=== PATIENT | male | born 1950 | race Caucasian/White ===

== ENCOUNTER 2016-04-08 10:48 | Inpatient (IN) | payer OTHER ==
[2016-04-08] VITALS (9 sets, daily range): BP systolic 80–136; BP diastolic 52–68; PULSE 61–69; TEMP 36.1–36.4; O2SAT 91–99; Ht 180.3 cm; Wt 113.8 kg
[~2016-04-08] VITALS: Ht 180.3 cm; Wt 113.8 kg
[2016-04-08] MEDS ORDERED: SODIUM CHLORIDE 0.9% 1000ML 500 ML IV STA (10:52)
[2016-04-08] MEDS ORDERED: SODIUM CHLORIDE 0.9% 1000ML 1,000 ML IV STA ×2 (11:00→15:10)
--- NOTE | 2016-04-08 11:27 | DIAGNOSTIC IMAGING REPORT ---
CHEST ONE VIEW PORTABLE CLINICAL HISTORY: weak dyspnea COMPARISON STUDY: No previous studies for comparison. FINDINGS: Mild cardiomegaly. Lungs are clear. Diaphragms smooth. Costophrenic angles sharp. IMPRESSION: Mild cardia megaly. Otherwise negative study Electronically signed by: Sherif Burns M.D. 04/08/2016 11:25 AM Dictated Date/Time: 04/08/2016 11:25 AM
[2016-04-08 11:31] LABS: HEMATOCRIT 45.9 % (42-52); MEAN CELL VOLUME 86.3 fL (80-100); MEAN CORPUSCULAR HEMOGLOBIN 32.1 pg (25-34); MEAN CORPUSCULAR HGB CONC 37.3 g/dl (32-36); MEAN PLATELET VOLUME 10.8 fL (7.4-10.4); PLATELET COUNT 365 K/uL (130-400); RED BLOOD COUNT 5.32 M/uL (4.7-6.1); WHITE BLOOD COUNT 26.23 K/uL (4.8-10.8)
--- NOTE | 2016-04-08 11:31 | EMERGENCY ROOM VISIT NOTE ---
History Report prepared by Kris: Carolina Bentley Under the Supervision of: Dr. Forest Ramires M.D. First contact with patient: 10:51 Chief Complaint: FLU LIKE SX Stated Complaint: EXTREME FLU/DEHYDRATION 8 DAYS History of Present Illness The patient is a 65 year old male who presents to the Emergency Room with complaints of persistent generalized weakness starting about 8 days ago. The patient has had flu-like symptoms for the past few days. He also complains of a loss of appetite and dizziness. He had one vomiting episode yesterday. He currently denies any pain. He denies chest pain, abdominal pain, or any other complaints. Source of History: patient Onset: about 8 days ago Position: other (global) Symptom Intensity: No pain Quality: other (weakness) Timing: other (persistent) Associated Symptoms: + vomiting, No abdominal pain, No chest pain Review of Systems See HPI for pertinent positives & negatives. A total of 10 systems reviewed and were otherwise negative. Past Medical & Surgical Medical Problems: (1) Acute renal failure (2) Chronic kidney disease, stage III (moderate) (3) Hypertension (4) Hypokalemia (5) Metabolic acidosis (6) No Known Active Medical Problems Family History Patient reports no known family medical history. Social History Smoking Status: Former Smoker Marital Status: single Occupation Status: retired Current/Historical Medications Scheduled Lisinopril/Hctz (Zestoretic 20MG/12.5MG), 1 TAB PO BID Verapamil Hcl (Verapamil Hcl Sr), 360 MG PO DAILY Allergies Coded Allergies: No Known Allergies (Unverified , 04/08/16) Physical Exam Vital Signs Date Time Temp Pulse Resp B/P Pulse Ox O2 Delivery O2 Flow Rate FiO2 04/08/16 15:00 70 78/45 04/08/16 14:53 63 86/42 04/08/16 14:20 66 22 96/46 98 04/08/16 14:04 73 98/62 04/08/16 13:15 64 106/57 04/08/16 13:14 64 04/08/16 12:25 57 18 105/61 96 04/08/16 12:01 62 20 99/46 04/08/16 11:46 66 18 83/55 94 Room Air 04/08/16 11:21 72 89/68 72 71/54 2/10/17 11:20 71 04/08/16 11:02 36.4 04/08/16 10:50 64 20 62/54 98 Room Air 63/47 Physical Exam CONSTITUTIONAL: Mild distress HEENT: No icterus, moist mucous membranes NECK: No meningismus, trachea is midline. CARDIOVASCULAR: Regular rate, normal perfusion RESPIRATORY: Unlabored breathing. Clear to auscultation. GASTROINTESTINAL: Non-tender GENITOURINARY: No flank tenderness MUSCULOSKELETAL: Full range of motion NEUROLOGIC: No acute gross focal deficits. PSYCHIATRIC: Normal affect SKIN: Normal for ethnicity. Medical Decision & Procedures ER Provider Diagnostic Interpretation: X-ray results as stated below per interpretation by me and the radiologist. CHEST ONE VIEW PORTABLE CLINICAL HISTORY: weak dyspnea COMPARISON STUDY: No previous studies for comparison. FINDINGS: Mild cardiomegaly. Lungs are clear. Diaphragms smooth. Costophrenic angles sharp. IMPRESSION: Mild cardia megaly. Otherwise negative study Electronically signed by: Sherif Burns M.D. 04/08/2016 11:25 AM Dictated Date/Time: 04/08/2016 11:25 AM Radiology results as stated below per my review and radiologist interpretation. CT SCAN OF THE ABDOMEN AND PELVIS WITHOUT IV CONTRAST CLINICAL HISTORY: Renal failure. GI bleeding. Leukocytosis. COMPARISON STUDY: No priors. TECHNIQUE: CT scan of the abdomen and pelvis is performed from the lung bases to the proximal femora. Images are reviewed in the axial, sagittal, and coronal planes. IV contrast was not administered for this examination as per the referring clinician. Note that the examination is suboptimal without oral and IV contrast. The examination is also degraded by large body habitus, streak artifact from the body wall abutting the CT gantry, and motion. Automated dose control exposure was utilized. CT DOSE: 1440.56 mGy.cm FINDINGS: Lung bases: The heart is lower and without pericardial effusion. The lung bases are clear. There is a small to moderate hiatal hernia. Liver: The unenhanced liver is mildly enlarged measuring over 18 cm in length. The liver demonstrates diminished attenuation consistent with hepatic steatosis. There is no intrahepatic biliary ductal dilatation. Gallbladder: Contracted. Spleen: Normal in size and attenuation. Pancreas: Unremarkable. Adrenal glands: Unremarkable. Kidneys: The unenhanced kidneys are normal in size and without hydronephrosis. There are no renal calculi identified. A 1.6 cm exophytic cyst arises from the lower pole of the left kidney. A 2.5 cm hyperdense lesion is seen in the lower pole the right kidney. Abdominal vasculature: The abdominal aorta is normal in course and caliber noting mild atherosclerotic calcification. Bowel: The small bowel and colon are normal in course and caliber. There are scattered colonic diverticula without CT evidence of acute diverticulitis. Liquid stool seen throughout the colon. There is no colonic wall thickening or pericolonic inflammation. The appendix is well-visualized and normal. Peritoneum: There is no intraperitoneal free air or abdominal ascites. Lymphadenopathy: None. Pelvic viscera: The bladder is decompressed around a Chance catheter. Foci of intraluminal gas are likely related to instrumentation. The prostate and seminal vesicles are normal as visualized. Skeletal structures: No lytic or blastic lesions are seen. IMPRESSION: 1. Suboptimal examination without oral and IV contrast. The examination is also significantly degraded by streak and motion artifact. 2. Liquid stool is seen throughout the colon. There is no colonic wall thickening or pericolonic inflammation. Correlate clinically for evidence of a diarrheal illness. 3. Hepatomegaly and hepatic steatosis. 4. The bladder is decompressed around a Chance catheter. Foci of intraluminal gas are likely related to instrumentation. Correlation with clinical findings and urinalysis will be required. 5. Cardiomegaly and hiatal hernia. 6. There is a 2.5 cm hyperdense lesion seen in the lower pole of the right kidney. This likely represents a complex/hemorrhagic cyst. Correlation with a nonemergent renal ultrasound is recommended for further assessment. 7. Additional findings as above. Electronically signed by: Nick Laura M.D. 04/08/2016 4:43 PM Dictated Date/Time: 04/08/2016 4:37 PM Laboratory Results Test 04/08/16 11:15 04/08/16 11:20 Immature Granulocyte % (Auto) 3.4 % White Blood Count 26.23 K/uL (4.8-10.8) Red Blood Count 5.32 M/uL (4.7-6.1) Hemoglobin 17.1 g/dL (14.0-18.0) Hematocrit 45.9 % (42-52) Mean Corpuscular Volume 86.3 fL (80-100) Mean Corpuscular Hemoglobin 32.1 pg (25-34) Mean Corpuscular Hemoglobin Concent 37.3 g/dl (32-36) Platelet Count 365 K/uL (130-400) Mean Platelet Volume 10.8 fL (7.4-10.4) Neutrophils (%) (Auto) 82.4 % Lymphocytes (%) (Auto) 6.3 % Monocytes (%) (Auto) 7.5 % Eosinophils (%) (Auto) 0.0 % Basophils (%) (Auto) 0.4 % Neutrophils # (Auto) 21.59 K/uL (1.4-6.5) Lymphocytes # (Auto) 1.65 K/uL (1.2-3.4) Monocytes # (Auto) 1.98 K/uL (0.11-0.59) Eosinophils # (Auto) 0.01 K/uL (0-0.5) Basophils # (Auto) 0.11 K/uL (0-0.2) Immature Granulocyte # (Auto) 0.89 K/uL (0.00-0.02) Prothrombin Time 12.7 SECONDS (9.0-12.0) Prothromb Time International Ratio 1.2 (0.9-1.1) Activated Partial Thromboplast Time 33.8 SECONDS (21.0-31.0) Partial Thromboplastin Ratio 1.3 Phosphorus Level 15.3 mg/dl (2.5-4.9) Magnesium Level 3.3 mg/dl (1.8-2.4) Influenza Type A Antigen Neg for Influ A (NEG) Influenza Type B Antigen Neg for Influ B (NEG) Labs reviewed by ED physician. Medications Administered Medications (Trade) Dose Ordered Sig/Jose Route Start Time Stop Time Status Last Admin Dose Admin Sodium Chloride 500 ml @ 0 mls/hr Q0M STAT IV 04/08/16 10:52 04/08/16 10:53 DC 04/08/16 11:47 0 MLS/HR Sodium Chloride 1,000 ml @ 0 mls/hr Q0M STAT IV 04/08/16 11:00 04/08/16 11:01 DC 04/08/16 11:25 0 MLS/HR Sodium Chloride (Nss 1000ml) 1,000 ml @ 250 mls/hr Q4H IV 04/08/16 14:45 04/08/16 16:20 DC 04/08/16 14:45 125 MLS/HR Potassium Chloride (Kcl 10 Meq / Wtr) 20 meq STK-MED ONCE IV 04/08/16 14:24 04/08/16 14:26 DC 04/08/16 14:38 20 MEQ Piperacillin Sod/ Tazobactam Sod 4.5 gm 4.5 gm NOW STAT IV 04/08/16 14:23 04/08/16 14:35 DC 04/08/16 15:32 4.5 GM Pantoprazole Sodium/Syringe (Protonix Inj/ Syringe) 10 ml @ 5 mls/min ONE STAT IV 04/08/16 14:43 04/08/16 14:44 DC 04/08/16 15:32 5 MLS/MIN ECG Indication: weakness Rate (beats per minute): 72 Rhythm: sinus rhythm Findings: nonspecific-ST abn, RBBB ED Course 1051: Past medical records reviewed. The patient was evaluated in room A04B. A complete history and physical examination was performed. 1052: Sodium Chloride 500 ml @ 0 mls/hr Wide Open IV 1100: Sodium Chloride 1000 ml @ 0 mls/hr Wide Open IV 1306: I discussed the patient's case with Dr. Pierre, biomedical engineering professor with [facility]. 1312: Upon reexamination the patient is resting comfortably. I discussed results and treatment plan with the patient. He verbalizes agreement and understanding. I spoke with Dr. Babin from the [facility]. The patient will be evaluated for further management. 1332: Toradol Inj 15 mg IV Medical Decision Differential diagnosis includes but is not limited to viral syndrome, dehydration, metabolic disturbance. 65-year-old presented to the emergency department for evaluation of worsening generalized malaise and feeling unwell. Review of systems was essentially negative on a focused emergency department history. Screening labs revealed multiple abnormalities and additional testing was therefore ordered. Consultation obtained with nephrology and admission arranged. During ED stay and after admission arrangements had been made nurse reported liquid stool that was dark and heme positive. Type and cross ordered. Patient remained hemodynamically stable emergency room course. Consults Time Called: 1302 Consulting Physician: Dr. Pierre, biomedical engineering professor with [facility] Returned Call: 1306 I discussed the patient's case with Dr. Pierre biomedical engineering professor with [facility]. Additional Consults: Time Called: 1308 Consulted Physician: Dr. Babin from the [facility] Returned Call: 1312 Additional Comments: I spoke with Dr. Babin from the [facility]. Impression Primary Impression: Renal failure Additional Impression: Leukocytosis Scribe Attestation The scribe's documentation has been prepared under my direction and personally reviewed by me in its entirety. I confirm that the note above accurately reflects all work, treatment, procedures, and medical decision making performed by me. Departure Information Dispostion Being Evaluated By Hospitalist Referrals Lei De La Vega PA-C (PCP) Patient Instructions My [facility] Problem Qualifiers
[2016-04-08] MEDS ORDERED: LISI-787 PO (11:51)
[2016-04-08] MEDS ORDERED: VERA360C2 PO (11:51)
[2016-04-08 12:02] LABS: BUN/CREATININE RATIO 8.2 (10-20); CALCIUM 8.7 mg/dl (8.5-10.1); POTASSIUM 3.2 mmol/L (3.5-5.1)
[2016-04-08 12:04] LABS: BASO % 0.4 %; BASO ABS # 0.11 K/uL (0-0.2); COMPLETE YES; IG% 3.4 %; LYMPH % 6.3 %; LYMPH ABS # 1.65 K/uL (1.2-3.4); MONO % 7.5 %; NEUT % 82.4 %
[2016-04-08] MEDS ORDERED: KETOROLAC TROMETHAMINE 30 MG/ML VIAL IV STA (13:32)
[2016-04-08 13:39] LABS: MAGNESIUM 3.3 mg/dl (1.8-2.4)
[2016-04-08] MEDS ORDERED: POTASSIUM CHLR 20 MEQ / WTR 20 MEQ in PREMIXED WATER 100 ML IV STA (13:55)
[2016-04-08] MEDS ORDERED: ONDANSETRON INJ 2 MG/ML 2 ML VIAL IV PRN (14:00)
[2016-04-08] MEDS ORDERED: ACETAMINOPHEN 325 MG TAB PO PRN (14:00)
[2016-04-08] MEDS ORDERED: HEPARIN SOD 5000 UNIT/0.5 ML CARP SQ SCH (14:00)
[2016-04-08 14:09] LABS: PHOSPHORUS 15.3 mg/dl (2.5-4.9)
--- NOTE | 2016-04-08 14:21 | History and Physical ---
History & Physical Date & Time of Service: Apr 08, 2016 at 14:00 Chief Complaint: Extreme Flu/Dehydration 8 Days Primary Care Physician: Lei De La Vega PA-C History of Present Illness Source: patient, family This is a 65 yo M with PMHx HTN, tobacco abuse history, current tobacco chewer presenting after 1 week of having gastritis now with acute renal failure. Pt's two daughters, Anamaria and Briseyda are present at bedside. Pt had been seen by his PCP 1 week ago for GI flu, he was instructed to go back to the office or ER if symptoms worsened. His daughter brought him here for continued symptoms today. Since being seen by PCP he has continued to have diarrhea daily along with nausea and vomiting. Pt admits to last time vomiting was last evening. He reports orange clear liquid emesis, denies dark or coffee ground emesis, no blood streaking. He denies bowel movements have been dark or tarry. His appetitie has been very poor, and has tolerated minimal liquids. He admits to feeling weak and lightheaded for the past few days, and becomes dizzy acutely when he goes from sit to standing position. Denies fevers or chills. Pt admits his whole family had similar GI illness over a week ago. The patient has been taking medications lisinopril/hctz 20/12.5 mg and Verapamil hcl 260 mg daily. He lives alone in his own home. In the ED the pt has received 2 L NSS, Labs indicate acute renal failure with Cr.=13.0, BUN =107, AG=29, CO2=11, Rb=843, K+=3.2. WBC elevated at 26.23, Hgb= 17.1 and likely hemoconcentrated. Hemmocult positive. Renal u/s in process. While at bedside pt BP was 110/80s, but is the highest documented BP since here. Systolic has been in the 80s and 90s Family History Patient reports no known family medical history. Social History Smoking Status: Former Smoker (25 year pack history) Smokeless Tobacco Use: Yes (current user) Alcohol Use: daily 2-3 beers Drug Use: none Marital Status: single Housing status: lives alone Occupational Status: retired Immunizations History of Influenza Vaccine: No History of Tetanus Vaccine?: Yes History of Pneumococcal: No History of Hepatitis B Vaccine: Yes Allergies Coded Allergies: No Known Allergies (Unverified , 04/08/16) Home Medications Scheduled Lisinopril/Hctz (Zestoretic 20MG/12.5MG), 1 TAB PO BID Verapamil Hcl (Verapamil Hcl Sr), 360 MG PO DAILY Review of Systems 10 point ROS was reviewed and is negative other than listed in the HPI. Physical Exam Vital Signs Date Time Temp Pulse Resp B/P Pulse Ox O2 Delivery O2 Flow Rate FiO2 04/08/16 13:15 64 106/57 04/08/16 13:14 64 04/08/16 12:25 57 18 105/61 96 04/08/16 12:01 62 20 99/46 04/08/16 11:46 66 18 83/55 94 Room Air 04/08/16 11:21 72 89/68 72 71/54 04/08/16 11:20 71 04/08/16 11:02 36.4 04/08/16 10:50 64 20 62/54 98 Room Air 63/47 General Appearance: WD/WN, no apparent distress, + obese Head: normocephalic, atraumatic Eyes: PERRL, EOMI ENT: hearing grossly normal, pharynx normal, + pertinent finding (mucous membranes dry) Neck: supple, no JVD Respiratory/Chest: chest non-tender, lungs clear, normal breath sounds, no respiratory distress, no accessory muscle use Cardiovascular: regular rate, rhythm, normal peripheral pulses Abdomen/GI: normal bowel sounds, non tender, soft, + pertinent finding (obese) Back: normal inspection, no CVA tenderness Extremities/Musculoskelatal: normal inspection, no calf tenderness, no pedal edema Neurologic/Psych: alert, normal mood/affect, oriented x 3 Skin: normal color, warm/dry Diagnostics Laboratory Results Results Past 24 Hours Test 04/08/16 10:52 04/08/16 11:15 04/08/16 11:20 Range/Units White Blood Count 26.23 4.8-10.8 K/uL Red Blood Count 5.32 4.7-6.1 M/uL Hemoglobin 17.1 14.0-18.0 g/dL Hematocrit 45.9 42-52 % Mean Corpuscular Volume 86.3 80-100 fL Mean Corpuscular Hemoglobin 32.1 25-34 pg Mean Corpuscular Hemoglobin Concent 37.3 32-36 g/dl Platelet Count 365 130-400 K/uL Mean Platelet Volume 10.8 7.4-10.4 fL Neutrophils (%) (Auto) 82.4 % Lymphocytes (%) (Auto) 6.3 % Monocytes (%) (Auto) 7.5 % Eosinophils (%) (Auto) 0.0 % Basophils (%) (Auto) 0.4 % Neutrophils # (Auto) 21.59 1.4-6.5 K/uL Lymphocytes # (Auto) 1.65 1.2-3.4 K/uL Monocytes # (Auto) 1.98 0.11-0.59 K/uL Eosinophils # (Auto) 0.01 0-0.5 K/uL Basophils # (Auto) 0.11 0-0.2 K/uL RDW Standard Deviation 42.9 36.4-46.3 fL RDW Coefficient of Variation 13.6 11.5-14.5 % Immature Granulocyte % (Auto) 3.4 % Immature Granulocyte # (Auto) 0.89 0.00-0.02 K/uL Sodium Level 132 136-145 mmol/L Potassium Level 3.2 3.5-5.1 mmol/L Chloride Level 92 98-107 mmol/L Carbon Dioxide Level 11 21-32 mmol/L Anion Gap 29.0 3-11 mmol/L Blood Urea Nitrogen 107 7-18 mg/dl Creatinine 13.00 0.60-1.40 mg/dl Est Creatinine Clear Calc Drug Dose 7.2 ml/min Estimated GFR () 4.1 Estimated GFR (Non- 3.6 BUN/Creatinine Ratio 8.2 10-20 Random Glucose 154 70-99 mg/dl Calcium Level 8.7 8.5-10.1 mg/dl Magnesium Level 3.3 1.8-2.4 mg/dl Influenza Type A Antigen Neg for Influ A NEG Influenza Type B Antigen Neg for Influ B NEG Diagnostic Radiology CHEST ONE VIEW PORTABLE CLINICAL HISTORY: weak dyspnea COMPARISON STUDY: No previous studies for comparison. FINDINGS: Mild cardiomegaly. Lungs are clear. Diaphragms smooth. Costophrenic angles sharp. IMPRESSION: Mild cardia megaly. Otherwise negative study Electronically signed by: Sherif Burns M.D. 04/08/2016 11:25 AM Dictated Date/Time: 04/08/2016 11:25 AM The status of this report is Signed. EKG Vent. rate 72 BPM NH interval 176 ms QRS duration 178 ms QT/QTc 480/525 ms P-R-T axes 59 -56 31 NSR, RBB, no acute ST inversion or acute signs of ischemia. Impression Assessment and Plan This is a 65 yo M with PMHx HTN, tobacco abuse history, current tobacco chewer presenting after 1 week of having gastritis now with acute renal failure. Acute Renal Failure meeting SIRS criteria - Admit to ICU - Pt with hypotension, leukocytosis, and acute renal failure. No documented fever, not tachycardic - Consult merchandising stock associate for need for central catheter and pressors with persistently low BP despite fluid resuscitation with 2 L. Will order another 1 L NSS now. NSS running at 125mL afterward - Start on levophed now - Will check lactic acid, order blood cultures, and start on zosyn Q12 H for renal dosing. - lab has not yet been able to draw due to flat veins, plan to retry as needed - Cr.= 13.00 on admission. Now s/p 2 L NSS in the ED. Unsure what the pts baseline is as not able to see outside records. - Consult nephrology to see if need for acute hemodialysis - Renal US in process - Does not appear to be nephrolithiasis as pt without CVA tenderness, no acute abdominal pain. Pt has hx of stone ~10 years ago. Gastritis Hx hemorrhoids - WBC elevated at 26.23, - Checking stool cultures, leukocytes, c. diff. - Hemoccult + in ED, will check H&H q8h. Hgb currently 17.1 and likely hemoconcentrated. Will start on protonix inj 40 mg BID now. - Continue NSS at 125 mL/hr - Continue supportive therapy with zofran Electrolyte abnormalities - hypokalemia: replace K+ with 20 meq now as diarrhea/vomiting adding to electrolyte abnormalities. - Mag= 3.3 and phos=15.3 now, both elevated likely due to ARF and dehydration HTN - HOLD Lisinopril/HCTZ 20/12.5 mg daily - HOLD verapamil 360 mg DVT ppx: hold chemical anticoagulation with heme + stool, scds CODE STATUS: FULL CODE Dispostion: From home, lives alone. CM to assist. Level of Care Critical Care Advanced Directives Existing Advance Directive: No Existing Living Will: No Existing Power of Installment Agent: No Existing Health Care Proxy: No Resuscitation Status FULL RESUSCITATION VTE Prophylaxis VTE Risk Assessment Done? Y/N: Yes Risk Level: Low Given or contraindicated: SCD's Reviewed: Pt Seen/Exam by Me, RN Notes, HO Notes, Prior Records, Labs, RAD History I agree with PA H&P with some modifications as below This is a 65 yo M with PMHx HTN, tobacco abuse history, current tobacco chewer presenting after 1 week of having gastritis now with acute renal failure. PMH, ROS, SOC, FAM hx as per PA note. Meds and allergies reviewed. EENTM: denies: blurred vision Cardiovascular: denies chest pain Genitourinary: negative discharge Musculoskeletal: negative: back pain Neurological/Psych: negative: anxiety Hematologic/Lymphatic: negative: anemia General Appearance: WD/WN Eye Exam: bilateral eye normal inspection Ears, Nose, Throat: hearing grossly normal, pharynx normal Neck: non-tender, supple Respiratory: normal breath sounds Cardiovascular: regular rate, rhythm, no gallop Gastrointestinal: non tender Extremities: non-tender Neurologic/Psychiatric: alert Skin Characteristics: warm/dry Assessment/Plan This is a 65 yo M with PMHx HTN, tobacco abuse history, current tobacco chewer presenting after 1 week of having gastritis now with acute renal failure. Acute Renal Failure meeting SIRS criteria ICU Pt with hypotension, leukocytosis, and acute renal failure. No documented fever , not tachycardic. likely severe dehydration versus sepsis consult merchandising stock associate for need for central catheter and pressors with persistently low BP despite fluid resuscitation with 2 L. Will order another 1 L NSS now. NSS running at 250mL afterward Start on levophed if BP does not come up check lactic acid, order blood cultures, and start on zosyn Q12 H for renal dosing. - lab has not yet been able to draw due to flat veins, plan to retry as needed Cr.= 13.00 on admission. Now s/p 2 L NSS in the ED. Baseline creat 1.4 in december 2015 by PCP Consult nephrology to see if need for acute hemodialysis Renal US in process Does not appear to be nephrolithiasis as pt without CVA tenderness, no acute abdominal pain. Pt has hx of stone ~10 years ago. Suspected Gastritis Hx hemorrhoids WBC elevated at 26.23, Checking stool cultures, leukocytes, c. diff. Hemoccult + in ED, will check H&H q8h. Hgb currently 17.1 and likely hemoconcentrated. Will start on protonix inj 40 mg BID now. Continue NSS at 250 mL/hr Continue supportive therapy with zofran hypokalemia: replace K+ with 20 meq now as diarrhea/vomiting adding to electrolyte abnormalities. Mag,3.3 and phos, 15.3 now, both elevated likely due to ARF and dehydration HTN HOLD Lisinopril/HCTZ 20/12.5 mg daily HOLD verapamil 360 mg DVT proph: hold chemical anticoagulation with heme + stool, scds CODE STATUS: FULL CODE Dispostion: From home, lives alone. CM to assist. case discussed with BEATA Blackwell time spent ICU 60 min
[2016-04-08] MEDS ORDERED: PIPERACILLIN/TAZOBACTAM 4.5 GM/100ML D5W IV STA (14:23)
[2016-04-08] MEDS ORDERED: POTASSIUM CHLORIDE 10 MEQ / 100ML WTR IV ONE ×2 (14:24→14:30)
[2016-04-08 14:41] LABS: INR 1.2 (0.9-1.1); PARTIAL THROMBOPLASTIN RATIO 1.3; PROTHROMBIN TIME (PATIENT) 12.7 SECONDS (9.0-12.0)
[2016-04-08] MEDS ORDERED: PANTOprazole INJ 40 MG in SYRINGE 0 ML IV STA (14:43)
[2016-04-08] MEDS ORDERED: PIPERACILL/TAZOBAC CONSULT ACTIVE PRN (14:45)
[2016-04-08] MEDS ORDERED: SODIUM CHLORIDE 0.9% 1000ML 1,000 ML IV SCH ×3 (14:45→16:15)
[2016-04-08] MEDS ORDERED: NOREPINEPHRINE BIT INJ 8 MG in DEXTROSE 5% 500ML 500 ML IV STA (15:12)
[2016-04-08 16:08] LABS: ARTERIAL BLD GAS O2 SATURATION 97.6 % (90-95); ARTERIAL BLOOD GAS BASE EXCESS -14.1 mEq/L (-9-1.8); ARTERIAL BLOOD GAS HCO3 10 mmol/L (19-24); ARTERIAL BLOOD GAS PO2 104 mm/Hg (80-95)
[2016-04-08 16:09] LABS: ALLEN TEST POS (POS)
[2016-04-08 16:10] LABS: O2 ADMINISTRATION ROOM AIR
--- NOTE | 2016-04-08 16:44 | DIAGNOSTIC IMAGING REPORT ---
CT SCAN OF THE ABDOMEN AND PELVIS WITHOUT IV CONTRAST CLINICAL HISTORY: Renal failure. GI bleeding. Leukocytosis. COMPARISON STUDY: No priors. TECHNIQUE: CT scan of the abdomen and pelvis is performed from the lung bases to the proximal femora. Images are reviewed in the axial, sagittal, and coronal planes. IV contrast was not administered for this examination as per the referring clinician. Note that the examination is suboptimal without oral and IV contrast. The examination is also degraded by large body habitus, streak artifact from the body wall abutting the CT gantry, and motion. Automated dose control exposure was utilized. CT DOSE: 1440.56 mGy.cm FINDINGS: Lung bases: The heart is lower and without pericardial effusion. The lung bases are clear. There is a small to moderate hiatal hernia. Liver: The unenhanced liver is mildly enlarged measuring over 18 cm in length. The liver demonstrates diminished attenuation consistent with hepatic steatosis. There is no intrahepatic biliary ductal dilatation. Gallbladder: Contracted. Spleen: Normal in size and attenuation. Pancreas: Unremarkable. Adrenal glands: Unremarkable. Kidneys: The unenhanced kidneys are normal in size and without hydronephrosis. There are no renal calculi identified. A 1.6 cm exophytic cyst arises from the lower pole of the left kidney. A 2.5 cm hyperdense lesion is seen in the lower pole the right kidney. Abdominal vasculature: The abdominal aorta is normal in course and caliber noting mild atherosclerotic calcification. Bowel: The small bowel and colon are normal in course and caliber. There are scattered colonic diverticula without CT evidence of acute diverticulitis. Liquid stool seen throughout the colon. There is no colonic wall thickening or pericolonic inflammation. The appendix is well-visualized and normal. Peritoneum: There is no intraperitoneal free air or abdominal ascites. Lymphadenopathy: None. Pelvic viscera: The bladder is decompressed around a Chance catheter. Foci of intraluminal gas are likely related to instrumentation. The prostate and seminal vesicles are normal as visualized. Skeletal structures: No lytic or blastic lesions are seen. IMPRESSION: 1. Suboptimal examination without oral and IV contrast. The examination is also significantly degraded by streak and motion artifact. 2. Liquid stool is seen throughout the colon. There is no colonic wall thickening or pericolonic inflammation. Correlate clinically for evidence of a diarrheal illness. 3. Hepatomegaly and hepatic steatosis. 4. The bladder is decompressed around a Chance catheter. Foci of intraluminal gas are likely related to instrumentation. Correlation with clinical findings and urinalysis will be required. 5. Cardiomegaly and hiatal hernia. 6. There is a 2.5 cm hyperdense lesion seen in the lower pole of the right kidney. This likely represents a complex/hemorrhagic cyst. Correlation with a nonemergent renal ultrasound is recommended for further assessment. 7. Additional findings as above. Electronically signed by: Nick Laura M.D. 04/08/2016 4:43 PM Dictated Date/Time: 04/08/2016 4:37 PM
[2016-04-08 17:09] LABS: HEMATOCRIT 36.4 % (42-52); MEAN CELL VOLUME 85.2 fL (80-100); MEAN CORPUSCULAR HEMOGLOBIN 32.1 pg (25-34); MEAN CORPUSCULAR HGB CONC 37.6 g/dl (32-36); MEAN PLATELET VOLUME 10.7 fL (7.4-10.4); PLATELET COUNT 303 K/uL (130-400); RED BLOOD COUNT 4.27 M/uL (4.7-6.1); WHITE BLOOD COUNT 24.22 K/uL (4.8-10.8)
[2016-04-08] MEDS: SODIUM BICARBONATE 8.4% INJ 150 MEQ in DEXTROSE 5% 1000ML 1,000 ML IV SCH ×2 (17:13→22:41)
[2016-04-08 17:16] LABS: BUN/CREATININE RATIO 8.5 (10-20)
[2016-04-08] MEDS ORDERED: SODIUM BICARB 8.4% INJ 50 MEQ/50 ML SYR - CCU EMERGENCY DRUG IV ONE (17:22)
[2016-04-08] MEDS ORDERED: SODIUM BICARB 8.4% INJ 50 MEQ/50 ML SYR IV STA (17:24)
[2016-04-08] MEDS ORDERED: POTASSIUM CHLR 10 MEQ / WTR 10 MEQ in PREMIXED WATER 100 ML IV STA (17:25)
[2016-04-08 17:38] LABS: CALCIUM 7.3 mg/dl (8.5-10.1); POTASSIUM 2.5 mmol/L (3.5-5.1)
[2016-04-08 17:50] LABS: CKMB/CK RATIO 4.5 (0-3.0)
[2016-04-08] MEDS ORDERED: POTASSIUM CHLORIDE 10 MEQ TABCR PO STA ×2 (18:06→18:31)
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
[2016-04-08] MEDS: POTASSIUM CHLR 10 MEQ / WTR 10 MEQ in PREMIXED WATER 100 ML IV SCH ×2 (19:24→20:25)
[2016-04-08] MEDS ORDERED: PANTOprazole INJ 40 MG in SYRINGE 0 ML IV SCH (21:00)
[2016-04-08 21:06] LABS: BUN/CREATININE RATIO 9.1 (10-20); CALCIUM 7.1 mg/dl (8.5-10.1); POTASSIUM 2.7 mmol/L (3.5-5.1)
--- NOTE | 2016-04-08 21:12 | DIAGNOSTIC IMAGING REPORT ---
RENAL ULTRASOUND CLINICAL HISTORY: Renal failure. Renal lesion on CT. COMPARISON STUDY: CT of the abdomen and pelvis performed earlier today. TECHNIQUE: Sonography of the kidneys and the urinary bladder was performed. FINDINGS: The right kidney measures 12.4 x 6.4 x 5.8 cm and the left measures 11.8 x 6.9 x 6.2 cm. There is no hydronephrosis. A 2.3 cm cyst within the lower pole of the right kidney corresponds to the lesion shown on CT from earlier today. There is a 1.4 cm left renal cyst. This exam is, must by suboptimal penetration. The bladder is decompressed, containing a Chance catheter. IMPRESSION: 1. No hydronephrosis. 2. 2.3 cm cyst within lower pole of the right kidney which corresponds the lesion shown on prior CT. 3. Study compromised by suboptimal penetration. Electronically signed by: Sanjiv Faith M.D. 04/08/2016 9:11 PM Dictated Date/Time: 04/08/2016 9:08 PM
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
[2016-04-08 22:16] LABS: URINE APPEARANCE TURBID (CLEAR); URINE BILIRUBIN NEG (NEG); URINE COLOR YELLOW; URINE EPITHELIAL CELL AUTO >30 /lpf (0-5); URINE NITRITE NEG (NEG); UROBILINOGEN NEG (NEG)
[2016-04-08 22:18] LABS: MANUAL MICROSCOPIC REQUIRED? NO; REVIEW REQ? YES
[2016-04-08 22:30] LABS: URINE PATH CASTS 1-5 GRANULAR CASTS /lpf (0)
[2016-04-08] MEDS ORDERED: NURSING VERBAL MED ORDER ONE (22:30)
[2016-04-08] MEDS ORDERED: POTASSIUM CHLR 10MEQ / WTR IV SCH (22:45)
[2016-04-08] MEDS: PIPERACILL/TAZOBAC IV 3.375 GM in DEXTROSE 5% 100ML IV SCH (23:52)
[2016-04-09] VITALS (12 sets, daily range): BP systolic 95–149; BP diastolic 48–88; PULSE 54–79; TEMP 36.5–37; O2SAT 96–99
[2016-04-09 00:24] LABS: BUN/CREATININE RATIO 8.9 (10-20); CALCIUM 6.9 mg/dl (8.5-10.1); POTASSIUM 2.9 mmol/L (3.5-5.1)
[2016-04-09] MEDS ORDERED: NURSING VERBAL MED ORDER ONE ×4 (00:45→18:00)
[2016-04-09] MEDS ORDERED: POTASSIUM CHLORIDE 20 MEQ TABCR PO STA ×3 (00:51→09:35)
[2016-04-09] MEDS: POTASSIUM CHLR 10MEQ / WTR IV SCH ×5 (01:06→08:42)
[2016-04-09 04:58] LABS: BASO % 0.2 %; BASO ABS # 0.03 K/uL (0-0.2); COMPLETE YES; EOS % 0.5 %; HEMATOCRIT 36.3 % (42-52); IG% 1.8 %; LYMPH % 9.1 %; LYMPH ABS # 1.72 K/uL (1.2-3.4); MEAN CELL VOLUME 84.8 fL (80-100); MEAN CORPUSCULAR HEMOGLOBIN 31.5 pg (25-34); MEAN CORPUSCULAR HGB CONC 37.2 g/dl (32-36); MEAN PLATELET VOLUME 10.6 fL (7.4-10.4); MONO % 11.1 %; NEUT % 77.3 %; PLATELET COUNT 309 K/uL (130-400); RED BLOOD COUNT 4.28 M/uL (4.7-6.1); WHITE BLOOD COUNT 18.85 K/uL (4.8-10.8)
[2016-04-09 05:06] LABS: INR 1.2 (0.9-1.1); PARTIAL THROMBOPLASTIN RATIO 1.1; PROTHROMBIN TIME (PATIENT) 12.4 SECONDS (9.0-12.0)
[2016-04-09 05:29] LABS: CALCIUM 6.9 mg/dl (8.5-10.1); MAGNESIUM 2.5 mg/dl (1.8-2.4); POTASSIUM 2.9 mmol/L (3.5-5.1)
[2016-04-09 06:06] LABS: PHOSPHORUS 8.9 mg/dl (2.5-4.9)
[2016-04-09] MEDS: SODIUM BICARBONATE 8.4% INJ 150 MEQ in DEXTROSE 5% 1000ML 1,000 ML IV SCH ×4 (06:29→23:42)
[2016-04-09] MEDS: METRONIDAZOLE 500 MG TAB PO SCH ×2 (07:58→20:38)
[2016-04-09] MEDS: LACTOBACILLUS ACIDOPHILUS (FLORANEX) TAB PO SCH ×4 (07:59→20:38)
[2016-04-09] MEDS ORDERED: CALCIUM CHLORIDE 10% 1,000 MG in SODIUM CHLORIDE 0.9% 50ML 50 ML IV ONE (08:00)
[2016-04-09] MEDS ORDERED: SODIUM CHLORIDE 0.9% 1000ML 1,000 ML IV ONE (09:00)
[2016-04-09] MEDS ORDERED: VERAPAMIL HCL 180 MG TABCR PO SCH (09:00)
[2016-04-09] MEDS ORDERED: PANTOprazole SOD 40 MG TAB PO SCH (09:00)
--- NOTE | 2016-04-09 09:08 | Nephrology Progress Note ---
Nephrology Progress Note Date of Service Apr 09, 2016. Chief Complaint Acute renal insufficiency Subjective Jamal is sitting comfortably in a bedside chair this morning. He states that he feels "better." He continues to have frequent watery stool. Appetite is very poor. He denies abdominal pain. He denies fevers or chills. He does not have shortness of breath. There has been very little urine output (<80 ml overnight) . Chance draining dark yellow urine. IVF infusing without complications. Review of Systems A complete review of systems was performed. Pertinent positives are noted above. All other systems are negative. Vital Signs Last 8 Hrs Date Time Temp Pulse Resp B/P Pulse Ox O2 Delivery O2 Flow Rate FiO2 04/09/16 06:00 63 20 107/48 96 Room Air 04/09/16 04:00 36.6 68 18 95/57 98 Room Air 04/09/16 04:00 Room Air 04/09/16 02:00 62 18 133/48 98 Room Air I & O 24-Hour Column 04/09/16 08:00 Intake Total 6838 ml Output Total 20 ml Balance 6818 ml Last Recorded Weight Weight (Kilograms): 116.300 Physical Exam General Appearance: WD/WN, no apparent distress Head: normocephalic, atraumatic Eyes: normal inspection, sclerae normal ENT: normal ENT inspection, + pertinent finding (oral mucosa dry, no oral lesions) Neck: supple, no JVD Respiratory/Chest: lungs clear, no respiratory distress, no accessory muscle use Cardiovascular: regular rate, rhythm, no gallop Abdomen/GI: non tender, + distended, + pertinent finding (hyperactive bowel sounds) Genitourinary - Male: + pertinent finding (Chance draining dark yellow urine) Extremities/Musculoskelatal: normal inspection, no pedal edema Neurologic/Psych: alert, oriented x 3 Family History Patient reports no known family medical history. Social History Smokeless Tobacco Use: Yes (current user) Alcohol Use: daily 2-3 beers Drug Use: none Marital Status: single Housing Status: lives alone Occupation: retired Laboratory Results Past 24 Hours 04/08/16 11:15 Red Blood Count 5.32, Mean Corpuscular Volume 86.3, Mean Corpuscular Hemoglobin 32.1, Mean Corpuscular Hemoglobin Concent 37.3, Mean Platelet Volume 10.8, Neutrophils (%) (Auto) 82.4, Lymphocytes (%) (Auto) 6.3, Monocytes (%) (Auto) 7.5, Eosinophils (%) (Auto) 0.0, Basophils (%) (Auto) 0.4, Neutrophils # (Auto) 21.59, Lymphocytes # (Auto) 1.65, Monocytes # (Auto) 1.98, Eosinophils # (Auto) 0.01, Basophils # (Auto) 0.11 04/08/16 15:57 04/08/16 20:20 04/09/16 04:39 Red Blood Count 4.28, Mean Corpuscular Volume 84.8, Mean Corpuscular Hemoglobin 31.5, Mean Corpuscular Hemoglobin Concent 37.2, Mean Platelet Volume 10.6, Neutrophils (%) (Auto) 77.3, Lymphocytes (%) (Auto) 9.1, Monocytes (%) (Auto) 11.1, Eosinophils (%) (Auto) 0.5, Basophils (%) (Auto) 0.2, Neutrophils # (Auto ) 14.58, Lymphocytes # (Auto) 1.72, Monocytes # (Auto) 2.09, Eosinophils # (Auto ) 0.09, Basophils # (Auto) 0.03 04/08/16 11:15 04/08/16 15:57 04/08/16 20:20 04/08/16 23:51 04/09/16 04:39 Test 04/08/16 11:15 04/08/16 11:20 04/08/16 15:39 04/08/16 15:57 White Blood Count 26.23 K/uL (4.8-10.8) Red Blood Count 5.32 M/uL (4.7-6.1) 4.27 M/uL (4.7-6.1) Hemoglobin 17.1 g/dL (14.0-18.0) Hematocrit 45.9 % (42-52) Mean Corpuscular Volume 86.3 fL (80-100) 85.2 fL (80-100) Mean Corpuscular Hemoglobin 32.1 pg (25-34) 32.1 pg (25-34) Mean Corpuscular Hemoglobin Concent 37.3 g/dl (32-36) 37.6 g/dl (32-36) Platelet Count 365 K/uL (130-400) Mean Platelet Volume 10.8 fL (7.4-10.4) 10.7 fL (7.4-10.4) Neutrophils (%) (Auto) 82.4 % Lymphocytes (%) (Auto) 6.3 % Monocytes (%) (Auto) 7.5 % Eosinophils (%) (Auto) 0.0 % Basophils (%) (Auto) 0.4 % Neutrophils # (Auto) 21.59 K/uL (1.4-6.5) Lymphocytes # (Auto) 1.65 K/uL (1.2-3.4) Monocytes # (Auto) 1.98 K/uL (0.11-0.59) Eosinophils # (Auto) 0.01 K/uL (0-0.5) Basophils # (Auto) 0.11 K/uL (0-0.2) RDW Standard Deviation 42.9 fL (36.4-46.3) 41.6 fL (36.4-46.3) RDW Coefficient of Variation 13.6 % (11.5-14.5) 13.5 % (11.5-14.5) Immature Granulocyte % (Auto) 3.4 % Immature Granulocyte # (Auto) 0.89 K/uL (0.00-0.02) Prothrombin Time 12.7 SECONDS (9.0-12.0) Prothromb Time International Ratio 1.2 (0.9-1.1) Activated Partial Thromboplast Time 33.8 SECONDS (21.0-31.0) Partial Thromboplastin Ratio 1.3 Anion Gap 29.0 mmol/L (3-11) 27.0 mmol/L (3-11) Est Creatinine Clear Calc Drug Dose 7.2 ml/min 7.8 ml/min Estimated GFR () 4.1 4.6 Estimated GFR (Non- 3.6 3.9 BUN/Creatinine Ratio 8.2 (10-20) 8.5 (10-20) Calcium Level 8.7 mg/dl (8.5-10.1) 7.3 mg/dl (8.5-10.1) Phosphorus Level 15.3 mg/dl (2.5-4.9) Magnesium Level 3.3 mg/dl (1.8-2.4) Influenza Type A Antigen Neg for Influ A (NEG) Influenza Type B Antigen Neg for Influ B (NEG) Lactic Acid Level 1.4 mmol/L (0.4-2.0) 1.5 mmol/L (0.4-2.0) Arterial Blood pH 7.30 (7.35-7.45) Arterial Blood Partial Pressure CO2 21 mmHg (35-46) Arterial Blood Partial Pressure O2 104 mm/Hg (80-95) Arterial Blood HCO3 10 mmol/L (19-24) Arterial Blood Oxygen Saturation 97.6 % (90-95) Arterial Blood Base Excess -14.1 mEq/L (-9-1.8) Arterial Blood Gas Delivery ROOM AIR Jose Test POS (POS) Total Bilirubin 0.4 mg/dl (0.2-1) Direct Bilirubin 0.1 mg/dl (0-0.2) Aspartate Amino Transf (AST/SGOT) 8 U/L (15-37) Alanine Aminotransferase (ALT/SGPT) 40 U/L (12-78) Alkaline Phosphatase 74 U/L (45-117) Total Creatine Kinase 82 U/L (39-308) Creatine Kinase MB 3.7 ng/ml (0.5-3.6) Creatine Kinase MB Ratio 4.5 (0-3.0) Troponin I < 0.015 ng/ml (0-0.045) Total Protein 6.0 gm/dl (6.4-8.2) Albumin 1.9 gm/dl (3.4-5.0) Procalcitonin 6.12 ng/mL (0-0.5) Test 04/08/16 18:10 04/08/16 20:20 04/08/16 22:00 04/08/16 23:51 Stool Occult Blood POSITIVE (NEGATIVE) Anion Gap 20.0 mmol/L (3-11) 26.0 mmol/L (3-11) Est Creatinine Clear Calc Drug Dose 8.0 ml/min 8.0 ml/min Estimated GFR () 4.6 4.6 Estimated GFR (Non- 3.9 3.9 BUN/Creatinine Ratio 9.1 (10-20) 8.9 (10-20) Osmolality 314 mOsm/kg (280-300) Calcium Level 7.1 mg/dl (8.5-10.1) 6.9 mg/dl (8.5-10.1) Urine Color YELLOW Urine Appearance TURBID (CLEAR) Urine pH 5.0 (4.5-7.5) Urine Specific [place] 1.010 (1.000-1.030) Urine Protein 1+ (NEG) Urine Glucose (UA) NEG (NEG) Urine Ketones NEG (NEG) Urine Occult Blood 3+ (NEG) Urine Nitrite NEG (NEG) Urine Bilirubin NEG (NEG) Urine Urobilinogen NEG (NEG) Urine Leukocyte Esterase NEG (NEG) Urine WBC (Auto) 10-30 /hpf (0-5) Urine RBC (Auto) 5-10 /hpf (0-4) Urine Hyaline Casts (Auto) 10-30 /lpf (0-5) Urine Epithelial Cells (Auto) >30 /lpf (0-5) Urine Bacteria (Auto) NEG (NEG) Urine Renal Epithelial Cells 10-20 /lpf (0-5) Urine Pathogenic Casts 1-5 GRANULAR CASTS /lpf (0) Urine Yeast (Auto) (NONE PRSENT) Test 04/09/16 04:39 04/09/16 08:30 White Blood Count 18.85 K/uL (4.8-10.8) Red Blood Count 4.28 M/uL (4.7-6.1) Hemoglobin 13.5 g/dL (14.0-18.0) Hematocrit 36.3 % (42-52) Mean Corpuscular Volume 84.8 fL (80-100) Mean Corpuscular Hemoglobin 31.5 pg (25-34) Mean Corpuscular Hemoglobin Concent 37.2 g/dl (32-36) Platelet Count 309 K/uL (130-400) Mean Platelet Volume 10.6 fL (7.4-10.4) Neutrophils (%) (Auto) 77.3 % Lymphocytes (%) (Auto) 9.1 % Monocytes (%) (Auto) 11.1 % Eosinophils (%) (Auto) 0.5 % Basophils (%) (Auto) 0.2 % Neutrophils # (Auto) 14.58 K/uL (1.4-6.5) Lymphocytes # (Auto) 1.72 K/uL (1.2-3.4) Monocytes # (Auto) 2.09 K/uL (0.11-0.59) Eosinophils # (Auto) 0.09 K/uL (0-0.5) Basophils # (Auto) 0.03 K/uL (0-0.2) RDW Standard Deviation 41.5 fL (36.4-46.3) RDW Coefficient of Variation 13.7 % (11.5-14.5) Immature Granulocyte % (Auto) 1.8 % Immature Granulocyte # (Auto) 0.34 K/uL (0.00-0.02) Prothrombin Time 12.4 SECONDS (9.0-12.0) Prothromb Time International Ratio 1.2 (0.9-1.1) Activated Partial Thromboplast Time 28.1 SECONDS (21.0-31.0) Partial Thromboplastin Ratio 1.1 Anion Gap 21.0 mmol/L (3-11) Est Creatinine Clear Calc Drug Dose 8.0 ml/min Estimated GFR () 4.6 Estimated GFR (Non- 3.9 BUN/Creatinine Ratio 9.0 (10-20) Calcium Level 6.9 mg/dl (8.5-10.1) Phosphorus Level 8.9 mg/dl (2.5-4.9) Magnesium Level 2.5 mg/dl (1.8-2.4) Date/Time Source Procedure Growth Status 04/08/16 16:45 Nasal MRSA DNA Surveillance Screen - Final Specimen Negative for MRSA by DNA Probe Complete 04/08/16 18:10 Stool C.difficile Toxin B Gene (PCR) - Final No C. difficile toxin B gene detected Complete 04/08/16 18:10 Stool WBC Smear - Final Complete 04/08/16 14:12 Stool C.difficile Toxin B Gene (PCR) - Final No C. difficile toxin B gene detected Complete Allergies Coded Allergies: No Known Allergies (Unverified , 04/08/16) Medications Current Inpatient Medications Medications (Trade) Dose Ordered Sig/Jose Route Start Time Stop Time Status Last Admin Dose Admin Acetaminophen (Tylenol Tab) 650 mg Q4H PRN PO 04/08/16 14:00 05/08/16 13:59 Ondansetron HCl (Zofran Inj) 4 mg Q6H PRN IV 04/08/16 14:00 05/08/16 13:59 Piperacillin Sod/ Tazobactam Sod 1 ea 1 ea UD PRN N/A 04/08/16 14:45 05/08/16 14:44 Sodium Bicarbonate 150 meq/Dextrose 1,150 ml @ 200 mls/hr Q5H45M IV 04/08/16 17:00 04/09/16 06:29 200 MLS/HR Piperacillin Sod/ Tazobactam Sod/ Dextrose (Zosyn Iv/D5 100ml) 115 ml @ 28.75 mls/ hr Q12H IV 04/09/16 00:00 04/18/16 00:00 04/08/16 23:52 28.75 MLS/HR Metronidazole (Flagyl Tab) 500 mg BID PO 04/09/16 09:00 04/23/16 08:59 04/09/16 07:58 500 MG Lactobacillus Acidophilus 4 tab 4 tab QID PO 04/09/16 09:00 05/09/16 08:59 04/09/16 07:59 4 TAB Potassium Chloride/Prmx (Kcl 10 Meq / Wtr/Premixed Water) 100 ml @ 100 mls/hr Q1H IV 04/09/16 06:15 04/09/16 09:14 04/09/16 08:42 100 MLS/HR Pantoprazole Sodium (Protonix Tab) 40 mg BID PO 04/09/16 09:00 05/09/16 08:59 04/09/16 07:58 40 MG Impression (1) Chronic kidney disease, stage III (moderate) (2) Hypertension (3) Hypokalemia (4) Metabolic acidosis (5) Acute renal failure Mr. Jamal Rosado is a 65-year-old male with hypertension who presented to [facility] with generalized weakness and malaise in the setting of recent nausea, vomiting, diarrhea and anorexia. He has oligoanuric CAITLYN. CT scan did not show evidence of obstruction. 2.5 cm cysts noted in kidneys. He was given volume resuscitation with normal saline and started on a bicarbonate gtt. Hypotension on admission improved with IVF. No fevers or chills. No evidence of colitis on CT. WBC elevated with normal platelet count and mild anemia. Metabolic profile also notable for metabolic acidosis and hypokalemia as well as hyperphosphatemia. He was given an additional 80 mEq PO potassium this morning and additional 10 mEq IV. I expect potassium will start improving now that he has been receiving bicarbonate. Repeat laboratory studies are ordered for this afternoon. Stool negative for C Diff. CAITLYN is consistent with ATN and prerenal azotemia. Urine microscopy consistent with ATN. Metabolic acidosis may be explained by renal failure and diarrhea. Recommendations -- Additional 1 L NS this AM -- Continue HCO3 gtt @ 200 ml/hr -- Chance to gravity and document I/O -- Consider renal artery duplex if renal function declinies -- Medications currently appropriately dosed for renal function -- There is no current indication for hemodialysis but I reviewed the procedure and potential indications with the patient this morning
[2016-04-09 09:14] LABS: BUN/CREATININE RATIO 8.4 (10-20); CALCIUM 7.1 mg/dl (8.5-10.1)
[2016-04-09] MEDS ORDERED: CALCIUM CHLORIDE 10% 10 ML SYR IV STA (09:38)
[2016-04-09] MEDS ORDERED: DIPHENOXYLATE/ATROPINE 2.5/0.025MG TAB PO ONE ×2 (09:45→17:30)
[2016-04-09] MEDS ORDERED: CALCIUM CHLORIDE 10% 1,000 MG in SODIUM CHLORIDE 0.9% 50ML 50 ML IV SCH (10:30)
[2016-04-09] MEDS: POTASSIUM CHLR 10 MEQ / WTR 10 MEQ in PREMIXED WATER 100 ML IV SCH ×4 (10:35→17:50)
[2016-04-09] MEDS: PIPERACILL/TAZOBAC IV 3.375 GM in DEXTROSE 5% 100ML IV SCH ×2 (11:25→23:42)
--- NOTE | 2016-04-09 12:28 | CRITICAL CARE PROGRESS NOTE ---
DATE: 04/09/2016 GENERAL INFORMATION: Mr. Rosado is a 65-year-old gentleman with a history of hypertension who presented to the Emergency Department yesterday secondary to 8 days of nausea, vomiting and diarrhea. He was found to be hypotensive, hypovolemic and in acute renal failure. He has been aggressively hydrated and remains on a sodium bicarbonate infusion. He has received many doses of potassium chloride over the course of the past 12 hours and continues to have diarrhea. The stool is watery and foul smelling per staff. Last night the hospitalist started him on Flagyl and Florastor. He has no specific complaints and is taking some food without any vomiting, although his appetite is poor. He denies chest pain, abdominal pain and shortness of breath. PHYSICAL EXAMINATION: VITAL SIGNS: Maximum temperature 36.6, heart rate 60s, respiratory rate 18-20, blood pressure 95-133/40s-50s, oxygen saturation 96% on room air. 24-hour fluid balance positive 4.7 liters. GENERAL: He is awake, alert and in no distress. LUNGS: Clear to auscultation bilaterally. No rales, rhonchi or wheezes. HEART: Regular rate and rhythm. No murmurs. CHEST: Has symmetric expansion. ABDOMEN: Obese, soft, nondistended, nontender with active bowel sounds. EXTREMITIES: Show 1+ edema and are warm. LABORATORY DATA: White blood cell count 18.85, hemoglobin 13.5, hematocrit 36.3, platelets 309. PT 12.4, INR 1.2, PTT 28.1. Sodium 137, potassium 3, chloride 99, CO2 14, BUN 109, creatinine 13, calcium 7.1. Urinalysis shows 3+ occult blood, 10-30 white blood cells, 5-10 red cells, 10-30 hyaline casts, greater than 30 epithelial cells, negative for bacteria, 10-20 renal epithelial cells and 1-5 granular casts. MICROBIOLOGY: Urine culture, no growth from 04/08. C. diff 04/08, negative x2 samples. White blood cell smear, no fecal leukocytes. Blood cultures 04/08, pending. Stool culture pending. MEDICATIONS: Acetaminophen, Floranex, Flagyl, Zofran, Protonix, Zosyn, potassium, D5W with 3 amps of bicarb per liter at 200 mL per hour. Echocardiogram pending. IMPRESSION: 1. Nausea, vomiting and diarrhea, somewhat improved. C. diff is negative and fecal leukocytes are also negative. Formal stool cultures are still pending. 2. Acute kidney injury secondary to acute tubular necrosis. Hopefully, this will improve with ongoing resuscitation in time. 3. Hypokalemia secondary to diarrhea. 4. Metabolic acidosis, improved. 5. Metabolic encephalopathy, improved. 6. Right renal cyst by imaging on ultrasound. 7. Cardiomegaly, echocardiogram done but result is pending. 8. History of hypertension. 9. Obesity. 10. Heme positive stool. PLAN: 1. Neurologic: Avoid sedatives. Hopefully, his neuro status will continue to improve if his BUN comes down. Treat pain with Tylenol if he should have pain. 2. Renal: Continue sodium bicarbonate infusion. He is getting a liter of saline over several hours as well today. Replete electrolytes aggressively and avoid nonsteroidal anti-inflammatory medication as well as RADHA inhibitors. 3. Gastrointestinal: Await further stool studies. With a negative CT scan and no white blood cells in his stool, I am still suspicious for a viral gastroenteritis although this could also be giardiasis. I talked to Dr. Perez briefly today as a curbside consult and discussed the utility of Imodium at this point. I have ordered 2 tablets of Imodium x1. Continue to watch for any indication that he has colitis. He will certainly need a followup colonoscopy at some point for his microscopic heme positive stool and as a general screening exam. 4. Infectious disease: He is on Zosyn with no clear evidence of infection. Flagyl was started last evening. I favor discontinuing both of them. I will discuss this with the primary service as well. 5. Heme: Leukocytosis is a bit better. He may have been hemoconcentrated however. Continue to follow blood counts. 6. Prophylaxis: Decrease Protonix to daily dosing and begin subcutaneous heparin for deep venous thrombosis prophylaxis. 7. Fluids, electrolytes, and nutrition: Continue sodium bicarbonate infusion and follow electrolytes carefully. Replete aggressively. Consider nutritional supplements. 8. Cardiovascular: Hold antihypertensives and follow up on echo report. Watch for volume overload. 9. Pulmonary: No acute active issues. Thank you for asking me to see this nice gentleman. There is no indication for acute dialysis at this time. His care was discussed with both his daughter and Dr. Pierre. Please call me with any questions or concerns. Critical care time, 40 minutes. WANG
[2016-04-09 12:52] LABS: HEMATOCRIT 36.7 % (42-52)
[2016-04-09] MEDS ORDERED: ALBUMIN HUMAN 25% 12.5 GM/50 ML VIAL IV ONE (13:45)
[2016-04-09 13:48] LABS: BUN/CREATININE RATIO 8.7 (10-20); POTASSIUM 3.8 mmol/L (3.5-5.1)
[2016-04-09] MEDS ORDERED: PERFLUTREN LIPID MICROSPHERE (DEFINITY) IV ONE (14:29)
[2016-04-09] MEDS ORDERED: ALBUMIN HUMAN 25% 12.5 GM/50 ML VIAL IV SCH (17:30)
[2016-04-09] MEDS ORDERED: DIPHENOXYLATE/ATROPINE 2.5/0.025MG TAB PO PRN (17:30)
[2016-04-09 17:32] LABS: BUN/CREATININE RATIO 8.5 (10-20); CALCIUM 7.8 mg/dl (8.5-10.1); MAGNESIUM 2.4 mg/dl (1.8-2.4); POTASSIUM 3.9 mmol/L (3.5-5.1)
--- NOTE | 2016-04-09 18:51 | Progress Note ---
Subjective Date of Service: Apr 09, 2016. Subjective Pt evaluation today including: conversation w/ patient, conversation w/ family , physical exam, chart review, lab review, review of inpatient medication list feeling better making some urine stools slowing no other complaints besides hiccups - notes he gets them often, "they'll go away " d/w family and updated on dx's and plans Problem List Medical Problems: (1) Leukocytosis Status: Acute (2) Renal failure Status: Acute Review of Systems ros otherwise negative except for as above Objective Vital Signs Date Time Temp Pulse Resp B/P Pulse Ox O2 Delivery O2 Flow Rate FiO2 04/09/16 18:00 72 16 141/70 98 Room Air 04/09/16 16:00 36.9 79 18 132/71 99 Room Air 04/09/16 16:00 Room Air 04/09/16 14:00 67 18 113/88 98 Room Air 04/09/16 12:00 36.6 63 16 149/84 98 Room Air 04/09/16 12:00 Room Air 04/09/16 10:00 54 18 106/56 96 Room Air 04/09/16 08:00 Room Air 04/09/16 08:00 36.5 74 18 119/48 97 Room Air 04/09/16 06:00 63 20 107/48 96 Room Air 04/09/16 04:00 36.6 68 18 95/57 98 Room Air 04/09/16 04:00 Room Air 04/09/16 02:00 62 18 133/48 98 Room Air 04/09/16 00:01 36.5 69 20 128/71 98 Room Air 04/08/16 23:59 Room Air 04/08/16 22:00 61 20 110/56 99 Room Air 04/08/16 20:00 36.4 67 20 126/52 94 Room Air 04/08/16 20:00 Room Air Physical Exam General Appearance: no apparent distress Eyes: EOMI ENT: hearing grossly normal Neck: trachea midline Respiratory/Chest: no respiratory distress, no accessory muscle use Extremities: normal range of motion 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, alert Skin: normal color, warm/dry Laboratory Results Last 24 Hours Test 04/08/16 20:20 04/08/16 22:00 04/08/16 23:51 04/09/16 04:39 Hemoglobin 14.9 g/dL 13.5 g/dL Hematocrit 40.0 % 36.3 % Sodium Level 133 mmol/L 139 mmol/L 136 mmol/L Potassium Level 2.7 mmol/L 2.9 mmol/L 2.9 mmol/L Chloride Level 102 mmol/L 99 mmol/L 99 mmol/L Carbon Dioxide Level 11 mmol/L 14 mmol/L 16 mmol/L Anion Gap 20.0 mmol/L 26.0 mmol/L 21.0 mmol/L Blood Urea Nitrogen 109 mg/dl 106 mg/dl 108 mg/dl Creatinine 12.00 mg/dl 12.00 mg/dl 12.00 mg/dl Est Creatinine Clear Calc Drug Dose 8.0 ml/min 8.0 ml/min 8.0 ml/min Estimated GFR () 4.6 4.6 4.6 Estimated GFR (Non- 3.9 3.9 3.9 BUN/Creatinine Ratio 9.1 8.9 9.0 Random Glucose 83 mg/dl 125 mg/dl 140 mg/dl Osmolality 314 mOsm/kg Calcium Level 7.1 mg/dl 6.9 mg/dl 6.9 mg/dl Urine Color YELLOW Urine Appearance TURBID Urine pH 5.0 Urine Specific [place] 1.010 Urine Protein 1+ Urine Glucose (UA) NEG Urine Ketones NEG Urine Occult Blood 3+ Urine Nitrite NEG Urine Bilirubin NEG Urine Urobilinogen NEG Urine Leukocyte Esterase NEG Urine WBC (Auto) 10-30 /hpf Urine RBC (Auto) 5-10 /hpf Urine Hyaline Casts (Auto) 10-30 /lpf Urine Epithelial Cells (Auto) >30 /lpf Urine Bacteria (Auto) NEG Urine Renal Epithelial Cells 10-20 /lpf Urine Pathogenic Casts 1-5 GRANULAR CASTS /lpf Urine Yeast (Auto) White Blood Count 18.85 K/uL Red Blood Count 4.28 M/uL Mean Corpuscular Volume 84.8 fL Mean Corpuscular Hemoglobin 31.5 pg Mean Corpuscular Hemoglobin Concent 37.2 g/dl Platelet Count 309 K/uL Mean Platelet Volume 10.6 fL Neutrophils (%) (Auto) 77.3 % Lymphocytes (%) (Auto) 9.1 % Monocytes (%) (Auto) 11.1 % Eosinophils (%) (Auto) 0.5 % Basophils (%) (Auto) 0.2 % Neutrophils # (Auto) 14.58 K/uL Lymphocytes # (Auto) 1.72 K/uL Monocytes # (Auto) 2.09 K/uL Eosinophils # (Auto) 0.09 K/uL Basophils # (Auto) 0.03 K/uL RDW Standard Deviation 41.5 fL RDW Coefficient of Variation 13.7 % Immature Granulocyte % (Auto) 1.8 % Immature Granulocyte # (Auto) 0.34 K/uL Prothrombin Time 12.4 SECONDS Prothromb Time International Ratio 1.2 Activated Partial Thromboplast Time 28.1 SECONDS Partial Thromboplastin Ratio 1.1 Phosphorus Level 8.9 mg/dl Magnesium Level 2.5 mg/dl Test 04/09/16 08:30 04/09/16 12:40 04/09/16 16:46 04/09/16 17:11 Sodium Level 137 mmol/L 138 mmol/L 140 mmol/L Potassium Level 3.0 mmol/L 3.8 mmol/L 3.9 mmol/L Chloride Level 99 mmol/L 101 mmol/L 103 mmol/L Carbon Dioxide Level 14 mmol/L 17 mmol/L 17 mmol/L Anion Gap 24.0 mmol/L 20.0 mmol/L 20.0 mmol/L Blood Urea Nitrogen 109 mg/dl 105 mg/dl 102 mg/dl Creatinine 13.00 mg/dl 12.00 mg/dl 12.00 mg/dl Est Creatinine Clear Calc Drug Dose 7.4 ml/min 8.1 ml/min 8.1 ml/min Estimated GFR () 4.1 4.6 4.6 Estimated GFR (Non- 3.6 3.9 3.9 BUN/Creatinine Ratio 8.4 8.7 8.5 Random Glucose 133 mg/dl 125 mg/dl 118 mg/dl Calcium Level 7.1 mg/dl 8.0 mg/dl 7.8 mg/dl Chemistry Specimen Hemolysis Hemoglobin 13.7 g/dL Hematocrit 36.7 % Magnesium Level 2.4 mg/dl Assessment and Plan Acute Renal Failure -appears due to dehydration from viral GE compounded by home BP meds -overall appearance c/w ATN -continue IVFs and supportive care -UO improving as positive sign SIRS -seems most cw demargination from above/ viral GE / etc -continue to follow closely, but OK w dc of empiric abx nausea/vomiting/diarrhea -improving heme positive stools -no appearance of significant hemorrhage at this time hypokalemia: replaced HTN HOLD Lisinopril/HCTZ 20/12.5 mg daily HOLD verapamil 360 mg continue to follow BP DVT proph: hold chemical anticoagulation with heme + stool, scds CODE STATUS: FULL CODE Dispostion: From home, lives alone. CM to assist.
[2016-04-09] MEDS: HEPARIN SOD 5000 UNIT/0.5 ML CARP SQ SCH (20:56)
[2016-04-10] VITALS (12 sets, daily range): BP systolic 122–158; BP diastolic 72–93; PULSE 57–76; TEMP 36.6–37.1; O2SAT 93–98
[2016-04-10 00:07] LABS: BUN/CREATININE RATIO 8.7 (10-20); CALCIUM 7.2 mg/dl (8.5-10.1)
[2016-04-10 00:12] LABS: POTASSIUM 3.3 mmol/L (3.5-5.1)
[2016-04-10] MEDS ORDERED: NURSING VERBAL MED ORDER ONE (00:45)
[2016-04-10] MEDS: POTASSIUM CHLR 10MEQ / WTR IV SCH ×2 (01:04→02:22)
[2016-04-10] MEDS: SODIUM BICARBONATE 8.4% INJ 150 MEQ in DEXTROSE 5% 1000ML 1,000 ML IV SCH (05:43)
[2016-04-10 06:04] LABS: BASO % 0.2 %; BASO ABS # 0.03 K/uL (0-0.2); COMPLETE YES; EOS % 0.6 %; HEMATOCRIT 33.3 % (42-52); IG% 1.8 %; LYMPH ABS # 1.52 K/uL (1.2-3.4); MEAN CELL VOLUME 84.1 fL (80-100); MEAN CORPUSCULAR HEMOGLOBIN 31.6 pg (25-34); MEAN CORPUSCULAR HGB CONC 37.5 g/dl (32-36); MEAN PLATELET VOLUME 10.2 fL (7.4-10.4); MONO % 12.3 %; NEUT % 74.1 %; PLATELET COUNT 271 K/uL (130-400); RED BLOOD COUNT 3.96 M/uL (4.7-6.1); WHITE BLOOD COUNT 13.87 K/uL (4.8-10.8)
[2016-04-10 07:04] LABS: BUN/CREATININE RATIO 8.6 (10-20); CALCIUM 7.1 mg/dl (8.5-10.1); MAGNESIUM 2.2 mg/dl (1.8-2.4); PHOSPHORUS 5.6 mg/dl (2.5-4.9); POTASSIUM 3.3 mmol/L (3.5-5.1)
[2016-04-10] MEDS: LACTOBACILLUS ACIDOPHILUS (FLORANEX) TAB PO SCH ×4 (08:07→20:27)
[2016-04-10] MEDS: METRONIDAZOLE 500 MG TAB PO SCH ×2 (08:08→20:26)
[2016-04-10] MEDS: HEPARIN SOD 5000 UNIT/0.5 ML CARP SQ SCH ×2 (08:08→20:29)
[2016-04-10] MEDS: PANTOprazole SOD 40 MG TAB PO SCH (08:08)
[2016-04-10] MEDS ORDERED: POTASSIUM CHLR 10 MEQ / WTR 10 MEQ in PREMIXED WATER 100 ML IV SCH (08:15)
[2016-04-10] MEDS: POTASSIUM CHLR 10 MEQ / WTR 10 MEQ in PREMIXED WATER 100 ML IV SCH ×6 (08:46→20:23)
[2016-04-10] MEDS ORDERED: SODIUM CHLOR 0.45% + 20MEQ KCL 1,000 ML IV SCH (09:00)
[2016-04-10] MEDS ORDERED: POTASSIUM CHLORIDE 20 MEQ/15 ML UDC PO ONE (09:00)
[2016-04-10] MEDS: DIPHENOXYLATE/ATROPINE 2.5/0.025MG TAB PO SCH ×3 (11:37→23:19)
--- NOTE | 2016-04-10 12:09 | Nephrology Progress Note ---
Nephrology Progress Note Date of Service Apr 10, 2016. Chief Complaint Acute renal insufficiency Subjective No acute events overnight. No complaints this morning. Denies shortness of breath. No fevers or chills. Mr. Rosado feels that diarrhea is improving. Per report patient continues to have large and very loose bowel movements (at least 2 in past 12 hours). Mr. Rosado continues to have no complaints. Overall, he feels well. Review of Systems A complete review of systems was performed. Pertinent positives are noted above. All other systems are negative. Vital Signs Last 8 Hrs Date Time Temp Pulse Resp B/P Pulse Ox O2 Delivery O2 Flow Rate FiO2 04/10/16 10:00 74 18 141/82 96 Room Air 04/10/16 08:00 37.0 63 16 140/72 96 Room Air 04/10/16 08:00 Room Air 04/10/16 06:00 61 18 132/72 95 Room Air 04/10/16 04:00 36.8 68 18 130/72 93 Room Air 04/10/16 04:00 Room Air I & O 24-Hour Column 04/10/16 07:59 Intake Total 7290 ml Output Total 1450 ml Balance 5840 ml Last Recorded Weight Weight (Kilograms): 116.300 Physical Exam General Appearance: WD/WN, no apparent distress Head: normocephalic, atraumatic Eyes: normal inspection, sclerae normal ENT: normal ENT inspection, pharynx normal Neck: supple, no JVD Respiratory/Chest: lungs clear, no respiratory distress, no accessory muscle use Cardiovascular: regular rate, rhythm, no gallop, no murmur Abdomen/GI: normal bowel sounds, + distended, + pertinent finding (tympanic) Extremities/Musculoskelatal: normal inspection, no pedal edema Neurologic/Psych: alert, oriented x 3 Family History Patient reports no known family medical history. Social History Smokeless Tobacco Use: Yes (current user) Alcohol Use: daily 2-3 beers Drug Use: none Marital Status: single Housing Status: lives alone Occupation: retired Laboratory Results Past 24 Hours 04/09/16 12:40 04/10/16 05:24 Red Blood Count 3.96, Mean Corpuscular Volume 84.1, Mean Corpuscular Hemoglobin 31.6, Mean Corpuscular Hemoglobin Concent 37.5, Mean Platelet Volume 10.2, Neutrophils (%) (Auto) 74.1, Lymphocytes (%) (Auto) 11.0, Monocytes (%) (Auto) 12.3, Eosinophils (%) (Auto) 0.6, Basophils (%) (Auto) 0.2, Neutrophils # (Auto ) 10.29, Lymphocytes # (Auto) 1.52, Monocytes # (Auto) 1.70, Eosinophils # (Auto ) 0.08, Basophils # (Auto) 0.03 04/09/16 12:40 04/09/16 16:46 04/09/16 23:29 04/10/16 05:24 Test 04/09/16 12:40 04/09/16 16:46 04/09/16 17:11 04/09/16 23:29 Anion Gap 20.0 mmol/L (3-11) 20.0 mmol/L (3-11) 20.0 mmol/L (3-11) Est Creatinine Clear Calc Drug Dose 8.1 ml/min 8.1 ml/min 8.8 ml/min Estimated GFR () 4.6 4.6 5.1 Estimated GFR (Non- 3.9 3.9 4.4 BUN/Creatinine Ratio 8.7 (10-20) 8.5 (10-20) 8.7 (10-20) Calcium Level 8.0 mg/dl (8.5-10.1) 7.8 mg/dl (8.5-10.1) 7.2 mg/dl (8.5-10.1) Magnesium Level 2.4 mg/dl (1.8-2.4) Test 04/10/16 05:24 White Blood Count 13.87 K/uL (4.8-10.8) Red Blood Count 3.96 M/uL (4.7-6.1) Hemoglobin 12.5 g/dL (14.0-18.0) Hematocrit 33.3 % (42-52) Mean Corpuscular Volume 84.1 fL (80-100) Mean Corpuscular Hemoglobin 31.6 pg (25-34) Mean Corpuscular Hemoglobin Concent 37.5 g/dl (32-36) Platelet Count 271 K/uL (130-400) Mean Platelet Volume 10.2 fL (7.4-10.4) Neutrophils (%) (Auto) 74.1 % Lymphocytes (%) (Auto) 11.0 % Monocytes (%) (Auto) 12.3 % Eosinophils (%) (Auto) 0.6 % Basophils (%) (Auto) 0.2 % Neutrophils # (Auto) 10.29 K/uL (1.4-6.5) Lymphocytes # (Auto) 1.52 K/uL (1.2-3.4) Monocytes # (Auto) 1.70 K/uL (0.11-0.59) Eosinophils # (Auto) 0.08 K/uL (0-0.5) Basophils # (Auto) 0.03 K/uL (0-0.2) RDW Standard Deviation 41.6 fL (36.4-46.3) RDW Coefficient of Variation 13.6 % (11.5-14.5) Immature Granulocyte % (Auto) 1.8 % Immature Granulocyte # (Auto) 0.25 K/uL (0.00-0.02) Anion Gap 16.0 mmol/L (3-11) Est Creatinine Clear Calc Drug Dose 8.8 ml/min Estimated GFR () 5.1 Estimated GFR (Non- 4.4 BUN/Creatinine Ratio 8.6 (10-20) Calcium Level 7.1 mg/dl (8.5-10.1) Phosphorus Level 5.6 mg/dl (2.5-4.9) Magnesium Level 2.2 mg/dl (1.8-2.4) Allergies Coded Allergies: No Known Allergies (Unverified , 04/08/16) Medications Current Inpatient Medications Medications (Trade) Dose Ordered Sig/Jose Route Start Time Stop Time Status Last Admin Dose Admin Acetaminophen (Tylenol Tab) 650 mg Q4H PRN PO 04/08/16 14:00 05/08/16 13:59 Ondansetron HCl (Zofran Inj) 4 mg Q6H PRN IV 04/08/16 14:00 05/08/16 13:59 Metronidazole (Flagyl Tab) 500 mg BID PO 04/09/16 09:00 04/23/16 08:59 04/10/16 08:08 500 MG Lactobacillus Acidophilus (Floranex Tab) 4 tab QID PO 04/09/16 09:00 05/09/16 08:59 04/10/16 08:07 4 TAB Pantoprazole Sodium (Protonix Tab) 40 mg DAILY PO 04/10/16 09:00 05/10/16 08:59 04/10/16 08:08 40 MG Heparin Sodium (Porcine) 5000 unit 5,000 unit Q12 SQ 04/09/16 21:00 05/09/16 20:59 04/10/16 08:08 5,000 UNIT Potassium Chloride 10 meq/ Prmx 100 ml @ 100 mls/hr Q1H IV 04/10/16 09:00 04/10/16 11:59 04/10/16 10:29 100 MLS/HR Potassium Chloride/Sodium Chloride (02/28 Nss + 20meq KCl 1000ml) 1,000 ml @ 125 mls/hr Q8H IV 04/10/16 09:00 05/10/16 08:59 04/10/16 09:16 125 MLS/HR Diphenoxylate HCl/ Atropine (Lomotil Tab) 2 tab Q6H PO 04/10/16 11:30 04/11/16 11:29 04/10/16 11:37 2 TAB Diphenoxylate HCl/ Atropine (Lomotil Tab) 2 tab Q6H PRN PO 04/11/16 11:30 05/11/16 11:29 Impression (1) Chronic kidney disease, stage III (moderate) (2) Hypertension (3) Hypokalemia (4) Metabolic acidosis (5) Acute renal failure Mr. Jamal Rosado is a 65-year-old male with hypertension who presented to [facility] with generalized weakness and malaise in the setting of recent nausea, vomiting, diarrhea and anorexia. He has oligoanuric CAITLYN. CT scan did not show evidence of obstruction. 2.5 cm cysts noted in kidneys. He was given volume resuscitation with normal saline and started on a bicarbonate gtt. Hypotension on admission improved with IVF. No fevers or chills. No colitis on CT. WBC elevated with normal platelet count and mild anemia. Metabolic profile also notable for metabolic acidosis and hypokalemia as well as hyperphosphatemia. Additional PO + IV potassium given this morning. Repeat metabolic profile pending. IVF switched to / NS + 20 K. Stool negative for C Diff. Stool WBC not elevated. Giardia pending. CAITLYN is consistent with ATN and prerenal azotemia complicated by RADHA/HCTZ use. Urine microscopy consistent with ATN. Metabolic acidosis attributed to renal failure and diarrhea. Recommendations -- Continue IVF to maintain positive fluid balance -- Document I/O's. Chance catheter may be removed when appropriate per protocol. -- No emergent indication for dialysis at this time. -- Medications currently appropriately dosed for renal function. -- Frequent labs and continued potassium replacement.
[2016-04-10 12:50] LABS: BUN/CREATININE RATIO 9.6 (10-20); CALCIUM 7.1 mg/dl (8.5-10.1); POTASSIUM 4.9 mmol/L (3.5-5.1)
[2016-04-10] MEDS ORDERED: CALCIUM CHLORIDE 10% 10 ML SYR IV STA (12:55)
[2016-04-10] MEDS ORDERED: SODIUM CHLORIDE 0.9% 1000ML 1,000 ML IV SCH (13:00)
[2016-04-10] MEDS ORDERED: CALCIUM CHLORIDE IV ONE (13:30)
[2016-04-10] MEDS ORDERED: SODIUM CHLORIDE 0.9% IV ONE (13:30)
--- NOTE | 2016-04-10 13:45 | CRITICAL CARE PROGRESS NOTE ---
DATE: 04/10/2016 HISTORY OF PRESENT ILLNESS: This is a very nice 65-year-old gentleman admitted to the intensive care unit 2 days ago from the Emergency Department after presenting with 8 days of nausea, vomiting and diarrhea. He was hypotensive, hypovolemic and in acute renal failure with a BUN over 100 and creatinine of 13. He has had aggressive volume resuscitation and his urine output is most likely secondary to ATN from hypovolemia. Over the past day, his urine output has increased dramatically and he is now off the sodium bicarbonate infusion. He continues to have diarrhea and Lomotil started p.r.n. yesterday. Today, he feels much better and had a very nutritious breakfast of Cheez-its and peanut M&M's because he does not like the food. He had 2 bowel movements overnight and received Lomotil at 4:00 a.m. He denies nausea or vomiting and abdominal pain. He denies shortness of breath. He was out of bed to a chair yesterday as well. PHYSICAL EXAMINATION: VITAL SIGNS: Maximum temperature 37, heart rate 60s-70s, respiratory rate 16-18, blood pressure 120s-140s/70s-80s, oxygen saturation 96% on room air. A 24-hour fluid balance for yesterday, positive 6.8 liters. GENERAL: He is awake, alert and in no distress. He easily carries on a conversation. LUNGS: Clear to auscultation bilaterally. No rales, rhonchi or wheezes. HEART: Regular rate and rhythm. No murmurs. ABDOMEN: Obese, a bit firm, nontender, nondistended. Active bowel sounds. EXTREMITIES: With trace to 1+ pedal edema. Trace edema in the upper extremities. NEUROLOGIC: He is awake, alert and easily able to carry on a conversation. He follows commands. LABORATORY DATA: White blood cell count 13.87, hemoglobin 12.5, hematocrit 33.3, platelets 271. Sodium 141, potassium 3.3, chloride 100, CO2 25, BUN 95, creatinine 11. Blood sugar 129, calcium 7.1, phosphorus 5.6, and magnesium 2.2. MICROBIOLOGY: Urine culture 04/08no growth. C. diff by PCR negative x2. White blood cell smear negative, blood cultures x2 04/08, no growth. Stool culture - no E. coli, no Salmonella, no Shigella, no campylobacter. DISCHARGE MEDICATIONS: Acetaminophen, Lomotil, heparin, Floranex, Flagyl day 2, Zofran, Protonix, potassium. IMPRESSION: 1. Nausea, vomiting and diarrhea, improving. Stool culture is negative and he remains on Zosyn as well as Flagyl. 2. Acute kidney injury secondary acute tubular necrosis, improving. 3. Hypokalemia secondary to diarrhea, improving. 4. Metabolic acidosis, resolved, now off sodium bicarbonate infusion. 5. Metabolic encephalopathy, resolved. 6. Right renal cyst. 7. Cardiomegaly. Echocardiogram report still pending. 8. History of hypertension, he may need to resume his Cardizem. 9. Obesity. 10. Heme-positive stool. PLAN: RENAL: I started him on half normal saline with 20 mEq of potassium at 125 mL per hour. Continue aggressive repletion of electrolytes and avoid RADHA inhibitors and nonsteroidal anti-inflammatory medications. GASTROINTESTINAL: I have ordered Lomotil every 6 hours scheduled today and then to begin p.r.n. again tomorrow. If his diarrhea continues to improve, we can likely cut back on the IV fluids. He will need an outpatient colonoscopy for microscopic heme positive stool. INFECTIOUS DISEASE: Discontinue Zosyn and consider discontinuing Flagyl as well. I will discuss with Dr. Stinson. Continue Florastor. HEME: His blood counts continue to fall, but I believe he was hemoconcentrated. Continue to follow. NEUROLOGIC: No acute or active issues. PROPHYLAXIS: Continue Protonix and subcutaneous heparin. CARDIOVASCULAR: Consider resuming Cardizem and watch for volume overload. I called the [facility] lab about getting his echo read and on the chart. I updated his daughter at the bedside today. He is stable for transfer to telemetry. His care was discussed with Dr. Pierre and Dr. Stinson today as well. ____ MTDD
--- NOTE | 2016-04-10 14:06 | ECHOCARDIOGRAM REPORT ---
*NOTICE TO RECEIVING DEMOCRAT AGENCY This information is strictly Confidential and protected under [place] law. [place] law prohibits you from making any further disclosure of this information unless further disclosure is expressly permitted by the written consent of the person to whom it pertains or is authorized by law. A general authorization for the release of medical or other information is not sufficient for this purpose. Hospital accepts no responsibility if the information is made available to any other person, INCLUDING THE PATIENT. Interpretation Summary * Name: SANJANA DASILVA Study Date: 04/09/2016 02:12 PM BP: 95/57 mmHg * Patient Location: .MSICU\S\E105\S\1 HR: 65 * : 1950 (M/d/yyyy) Gender: Male Height: 71 in * Age: 65 yrs Ethnicity: [place] Weight: 240 lb * Ordering Physician: Doreen Blackwell * Referring Physician: Self, Referred * Performed By: Pawel Hayes RDCS * * Reason For Study: Pericardial disease * BSA: 2.3 m2 * -- Conclusions -- * Left ventricular systolic function is normal. * No regional wall motion abnormalities noted. * Ejection Fraction = 60-65%. * There is mild concentric left ventricular hypertrophy. * No significant valvuylar disease. Procedure Details * A complete two-dimensional transthoracic echocardiogram was performed (2D, M-mode, Doppler and color flow Doppler). * The study was technically difficult. * There were technical limitations due to patient'sPoor acoustic windows secondary to severe lung disease. * The study was technically difficult, but visualization was adequate with the administration of Definity ultrasound contrast. * A contrast injection of Definity was performed to improve assessment of LV function. * Contrast was injected into an intravenous site in the left arm. * One vial of Definity ultrasound contrast was diluted in normal saline to a total volume of 10 ml. A total of '3' ml of solution was administered during imaging. * Lot # [id number] of Definity utilized for procedure. * Expiration date 1F. * The attending nurse who injected the contrast agent was KAREN Reynolds. Left Ventricle * The left ventricle is normal in size. * There is mild concentric left ventricular hypertrophy. * Left ventricular systolic function is normal. * Ejection Fraction = 60-65%. * No regional wall motion abnormalities noted. Right Ventricle * The right ventricle is grossly normal size. * The right ventricular systolic function is normal as assessed by tricuspid annular plane systolic excursion (TAPSE) (normal >1.5 cm). Atria * The left atrium is mildly dilated. * Right atrium not well visualized. * There is no evidence of atrial septal defect, but resolution does not allow assessment for a patent foramen ovale. Mitral Valve * The mitral valve is grossly normal. * There is no mitral valve stenosis. * Significant mitral regurgitation is absent. Tricuspid Valve * The tricuspid valve is not well visualized, but is grossly normal. * There is no tricuspid stenosis. * Significant tricuspid regurgitation is absent. Aortic Valve * The aortic valve is not well visualized. * The aortic valve opens well. * No hemodynamically significant valvular aortic stenosis. * There is no significant aortic regurgitation. Pulmonic Valve * The pulmonary valve is not well seen, but the Doppler examination is normal without significant regurgitation or stenosis. * There is no significant pulmonary regurgitation. Great Vessels * The aortic root is normal size. Pericardium/Pleural * There is no pericardial effusion. Great Vessels * IVC not well seen. Left Ventricular Diastolic Function * Grade I diastolic dysfunction, (abnormal relaxation pattern). MMode 2D Measurements and Calculations IVSd 1.4 cm IVSs 1.7 cm LVIDd 4.5 cm LVIDs 2.3 cm LVPWd 1.2 cm LVPWs 1.8 cm IVS/LVPW 1.2 FS 48.3 % EDV(Teich) 90.9 ml ESV(Teich) 18.3 ml EF(Teich) 79.9 % EDV(cubed) 89.2 ml ESV(cubed) 12.3 ml EF(cubed) 86.2 % % IVS thick 22.6 % % LVPW thick 52.8 % LV mass(C)d 214.8 grams LV mass(C)dI 94.3 grams/m\S\2 LV mass(C)s 152.0 grams LV mass(C)sI 66.7 grams/m\S\2 SV(Teich) 72.6 ml SI(Teich) 31.9 ml/m\S\2 SV(cubed) 76.9 ml SI(cubed) 33.8 ml/m\S\2 Ao root diam 3.2 cm Ao root area 8.2 cm\S\2 ACS 1.9 cm LA dimension 4.1 cm asc Aorta Diam 3.4 cm LA/Ao 1.3 LVOT diam 2.0 cm LVOT area 3.2 cm\S\2 LVAd ap4 29.6 cm\S\2 LVLd ap4 7.5 cm EDV(MOD-sp4) 98.0 ml LVAs ap4 13.1 cm\S\2 LVLs ap4 5.5 cm ESV(MOD-sp4) 27.0 ml EF(MOD-sp4) 72.4 % LVAd ap2 23.0 cm\S\2 LVLd ap2 6.8 cm EDV(MOD-sp2) 64.0 ml LVAs ap2 11.7 cm\S\2 LVLs ap2 5.7 cm ESV(MOD-sp2) 21.0 ml EF(MOD-sp2) 67.2 % SV(MOD-sp4) 71.0 ml SI(MOD-sp4) 31.2 ml/m\S\2 SV(MOD-sp2) 43.0 ml SI(MOD-sp2) 18.9 ml/m\S\2 Doppler Measurements and Calculations MV E max dorita 86.9 cm/sec MV A max dorita 95.3 cm/sec MV E/A 0.91 MV dec time 0.17 sec Ao V2 max 188.2 cm/sec Ao max PG 14.2 mmHg Ao max PG (full) 7.5 mmHg KARTHIK(V,A) 2.2 cm\S\2 KARTHIK(V,D) 2.2 cm\S\2 LV V1 max PG 6.7 mmHg LV V1 max 129.0 cm/sec PA V2 max 110.5 cm/sec PA max PG 4.9 mmHg
--- NOTE | 2016-04-10 15:19 | Progress Note ---
Subjective Date of Service: Apr 10, 2016. Subjective Pt evaluation today including: conversation w/ patient, physical exam, chart review, lab review, review of inpatient medication list feeling better in general BM's slowing down no breathing problems no chest tightness no sob. does still have hiccups no belly pain no nausea, no tremors Problem List Medical Problems: (1) Leukocytosis Status: Acute (2) Renal failure Status: Acute Review of Systems ros otherwise negative except for as above Objective Vital Signs Date Time Temp Pulse Resp B/P Pulse Ox O2 Delivery O2 Flow Rate FiO2 04/10/16 14:00 57 16 158/90 96 Room Air 04/10/16 12:00 Room Air 04/10/16 12:00 37.1 76 18 122/77 98 Room Air 04/10/16 10:00 74 18 141/82 96 Room Air 04/10/16 08:00 37.0 63 16 140/72 96 Room Air 04/10/16 08:00 Room Air 04/10/16 06:00 61 18 132/72 95 Room Air 04/10/16 04:00 36.8 68 18 130/72 93 Room Air 04/10/16 04:00 Room Air 04/10/16 02:00 72 18 124/75 96 Room Air 04/10/16 00:01 36.9 66 18 130/77 97 Room Air 04/09/16 23:59 Room Air 04/09/16 22:00 72 18 136/73 97 Room Air 04/09/16 20:00 37.0 70 20 128/72 97 Room Air 04/09/16 20:00 Room Air 04/09/16 18:00 72 16 141/70 98 Room Air 04/09/16 16:00 36.9 79 18 132/71 99 Room Air 04/09/16 16:00 Room Air Physical Exam General Appearance: no apparent distress Eyes: EOMI ENT: hearing grossly normal Neck: trachea midline Respiratory/Chest: no respiratory distress, no accessory muscle use Extremities: normal range of motion Neurologic/Psychiatric: scheduling administrator II-XII nml as tested, alert, normal mood/affect Skin: normal color, warm/dry Laboratory Results Last 24 Hours Test 04/09/16 16:46 04/09/16 17:11 04/09/16 23:29 04/10/16 05:24 Sodium Level 140 mmol/L 143 mmol/L 141 mmol/L Potassium Level 3.9 mmol/L 3.3 mmol/L 3.3 mmol/L Chloride Level 103 mmol/L 100 mmol/L 100 mmol/L Carbon Dioxide Level 17 mmol/L 23 mmol/L 25 mmol/L Anion Gap 20.0 mmol/L 20.0 mmol/L 16.0 mmol/L Blood Urea Nitrogen 102 mg/dl 104 mg/dl 95 mg/dl Creatinine 12.00 mg/dl 11.00 mg/dl 11.00 mg/dl Est Creatinine Clear Calc Drug Dose 8.1 ml/min 8.8 ml/min 8.8 ml/min Estimated GFR () 4.6 5.1 5.1 Estimated GFR (Non- 3.9 4.4 4.4 BUN/Creatinine Ratio 8.5 8.7 8.6 Random Glucose 118 mg/dl 107 mg/dl 129 mg/dl Calcium Level 7.8 mg/dl 7.2 mg/dl 7.1 mg/dl Magnesium Level 2.4 mg/dl 2.2 mg/dl White Blood Count 13.87 K/uL Red Blood Count 3.96 M/uL Hemoglobin 12.5 g/dL Hematocrit 33.3 % Mean Corpuscular Volume 84.1 fL Mean Corpuscular Hemoglobin 31.6 pg Mean Corpuscular Hemoglobin Concent 37.5 g/dl Platelet Count 271 K/uL Mean Platelet Volume 10.2 fL Neutrophils (%) (Auto) 74.1 % Lymphocytes (%) (Auto) 11.0 % Monocytes (%) (Auto) 12.3 % Eosinophils (%) (Auto) 0.6 % Basophils (%) (Auto) 0.2 % Neutrophils # (Auto) 10.29 K/uL Lymphocytes # (Auto) 1.52 K/uL Monocytes # (Auto) 1.70 K/uL Eosinophils # (Auto) 0.08 K/uL Basophils # (Auto) 0.03 K/uL RDW Standard Deviation 41.6 fL RDW Coefficient of Variation 13.6 % Immature Granulocyte % (Auto) 1.8 % Immature Granulocyte # (Auto) 0.25 K/uL Phosphorus Level 5.6 mg/dl Test 04/10/16 12:10 04/10/16 15:00 Sodium Level 143 mmol/L Potassium Level 4.9 mmol/L Chloride Level 105 mmol/L Carbon Dioxide Level 21 mmol/L Anion Gap 17.0 mmol/L Blood Urea Nitrogen 96 mg/dl Creatinine 10.00 mg/dl Est Creatinine Clear Calc Drug Dose 9.7 ml/min Estimated GFR () 5.7 Estimated GFR (Non- 4.9 BUN/Creatinine Ratio 9.6 Random Glucose 120 mg/dl Calcium Level 7.1 mg/dl Chemistry Specimen Hemolysis Assessment and Plan Acute Renal Failure -appears due to dehydration from viral GE compounded by home BP meds -overall appearance c/w ATN -continue IVFs and supportive care -UO improving as positive sign SIRS -seems most cw demargination from above/ viral GE / etc -continue to follow closely, but OK w dc of empiric abx nausea/vomiting/diarrhea -improving heme positive stools -no appearance of significant hemorrhage at this time hypokalemia: replaced HTN HOLD Lisinopril/HCTZ 20/12.5 mg daily HOLD verapamil 360 mg continue to follow BP DVT proph: hold chemical anticoagulation with heme + stool, scds CODE STATUS: FULL CODE Dispostion: From home, lives alone. CM to assist. appearing stable for telemetry if OK w time buyer - will discuss
[2016-04-10 15:57] LABS: BUN/CREATININE RATIO 9.5 (10-20); CALCIUM 7.4 mg/dl (8.5-10.1)
[2016-04-10 15:58] LABS: CREATININE 9.8 mg/dl (0.60-1.40); POTASSIUM 3.4 mmol/L (3.5-5.1)
[2016-04-10] MEDS ORDERED: POTASSIUM CHLORIDE 20 MEQ/15 ML UDC PO STA (16:12)
[2016-04-10] MEDS: SODIUM CHLOR 0.45% + 20MEQ KCL 1,000 ML IV SCH (16:42)
[2016-04-10 21:50] LABS: BUN/CREATININE RATIO 10.6 (10-20); CALCIUM 7.3 mg/dl (8.5-10.1); MAGNESIUM 2.2 mg/dl (1.8-2.4); POTASSIUM 3.8 mmol/L (3.5-5.1)
[2016-04-10 21:51] LABS: CREATININE 8.7 mg/dl (0.60-1.40)
[2016-04-11] VITALS (13 sets, daily range): BP systolic 112–158; BP diastolic 67–80; PULSE 59–68; TEMP 36.1–36.8; O2SAT 92–98
[2016-04-11] MEDS: SODIUM CHLOR 0.45% + 20MEQ KCL 1,000 ML IV SCH ×3 (02:15→21:56)
[2016-04-11] MEDS: DIPHENOXYLATE/ATROPINE 2.5/0.025MG TAB PO SCH (05:26)
[2016-04-11 05:55] LABS: BASO % 0.2 %; BASO ABS # 0.03 K/uL (0-0.2); COMPLETE YES; EOS % 0.6 %; IG% 2.3 %; LYMPH ABS # 1.69 K/uL (1.2-3.4); MEAN CELL VOLUME 89.3 fL (80-100); MEAN CORPUSCULAR HEMOGLOBIN 32.1 pg (25-34); MEAN PLATELET VOLUME 10.2 fL (7.4-10.4); MONO % 11.4 %; NEUT % 75.5 %; PLATELET COUNT 263 K/uL (130-400); RED BLOOD COUNT 3.92 M/uL (4.7-6.1); WHITE BLOOD COUNT 16.88 K/uL (4.8-10.8)
[2016-04-11 06:31] LABS: BUN/CREATININE RATIO 11.2 (10-20); CALCIUM 6.9 mg/dl (8.5-10.1); CREATININE 8.1 mg/dl (0.60-1.40); MAGNESIUM 2.2 mg/dl (1.8-2.4); PHOSPHORUS 4.2 mg/dl (2.5-4.9); POTASSIUM 3.7 mmol/L (3.5-5.1)
--- NOTE | 2016-04-11 08:51 | Nephrology Progress Note ---
Nephrology Progress Note Date of Service Apr 11, 2016. Chief Complaint Follow up evaluation of acute on chronic kidney injury Subjective Mr. Rosado was seen and examined in the PCU this morning. He was admitted to the hospital with diarrhea, dehydration and acute on chronic kidney injury. The patient's baseline creatinine has been 1.4 (01/12). He presented to the hospital w/ SBP ~ 70, dehydration and serum creatinine of 13.0. Mr. Rosado reports that his diarrhea has resolved. He is tolerating a regular diet. His urine output has improved. He voices no new medical concerns at this time. The patient has a h/o arterial hypertension. He had been on Lisinopril and HCTZ. These medications have been held. He remains on Verapamil therapy. Review of Systems Constitutional: No fever Cardiovascular: No chest pain Respiratory: No dyspnea at rest Abdomen: No diarrhea, No pain, No vomiting Genitourinary - Male: No dysuria Extremities: No leg edema A complete review of systems was performed. Pertinent positives are noted above. All other systems are negative. Vital Signs Last 8 Hrs Date Time Temp Pulse Resp B/P Pulse Ox O2 Delivery O2 Flow Rate FiO2 04/11/16 07:50 36.4 59 19 136/73 92 Room Air 04/11/16 04:00 97 Room Air 04/11/16 03:44 36.1 67 20 117/67 97 Room Air I & O 24-Hour Column 04/11/16 08:00 Intake Total 3934 ml Output Total 2350 ml Balance 1584 ml Last Recorded Weight Weight (Kilograms): 117.500 Physical Exam General Appearance: no apparent distress Head: normocephalic, atraumatic Eyes: PERRL Neck: no adenopathy Respiratory/Chest: lungs clear, no respiratory distress Cardiovascular: regular rate, rhythm Abdomen/GI: normal bowel sounds, non tender, soft Extremities/Musculoskelatal: no calf tenderness, no pedal edema Neurologic/Psych: alert, oriented x 3 Family History Patient reports no known family medical history. Social History Smokeless Tobacco Use: Yes (current user) Alcohol Use: daily 2-3 beers Drug Use: none Marital Status: single Housing Status: lives alone Occupation: retired Laboratory Results Past 24 Hours 04/11/16 05:15 Red Blood Count 3.92, Mean Corpuscular Volume 89.3 #, Mean Corpuscular Hemoglobin 32.1, Mean Corpuscular Hemoglobin Concent 36.0, Mean Platelet Volume 10.2, Neutrophils (%) (Auto) 75.5, Lymphocytes (%) (Auto) 10.0, Monocytes (%) ( Auto) 11.4, Eosinophils (%) (Auto) 0.6, Basophils (%) (Auto) 0.2, Neutrophils # (Auto) 12.75, Lymphocytes # (Auto) 1.69, Monocytes # (Auto) 1.92, Eosinophils # (Auto) 0.10, Basophils # (Auto) 0.03 04/10/16 12:10 04/10/16 15:17 04/10/16 21:05 04/11/16 05:15 Test 04/10/16 12:10 04/10/16 15:17 04/10/16 21:05 04/11/16 05:15 Anion Gap 17.0 mmol/L (3-11) 15.0 mmol/L (3-11) 17.0 mmol/L (3-11) 14.0 mmol/L (3-11) Est Creatinine Clear Calc Drug Dose 9.7 ml/min 9.9 ml/min 11.1 ml/min 12.0 ml/min Estimated GFR () 5.7 5.8 6.7 7.3 Estimated GFR (Non- 4.9 5.0 5.8 6.3 BUN/Creatinine Ratio 9.6 (10-20) 9.5 (10-20) 10.6 (10-20) 11.2 (10-20) Calcium Level 7.1 mg/dl (8.5-10.1) 7.4 mg/dl (8.5-10.1) 7.3 mg/dl (8.5-10.1) 6.9 mg/dl (8.5-10.1) Chemistry Specimen Hemolysis Magnesium Level 2.2 mg/dl (1.8-2.4) 2.2 mg/dl (1.8-2.4) White Blood Count 16.88 K/uL (4.8-10.8) Red Blood Count 3.92 M/uL (4.7-6.1) Hemoglobin 12.6 g/dL (14.0-18.0) Hematocrit 35.0 % (42-52) Mean Corpuscular Volume 89.3 fL (80-100) Mean Corpuscular Hemoglobin 32.1 pg (25-34) Mean Corpuscular Hemoglobin Concent 36.0 g/dl (32-36) Platelet Count 263 K/uL (130-400) Mean Platelet Volume 10.2 fL (7.4-10.4) Neutrophils (%) (Auto) 75.5 % Lymphocytes (%) (Auto) 10.0 % Monocytes (%) (Auto) 11.4 % Eosinophils (%) (Auto) 0.6 % Basophils (%) (Auto) 0.2 % Neutrophils # (Auto) 12.75 K/uL (1.4-6.5) Lymphocytes # (Auto) 1.69 K/uL (1.2-3.4) Monocytes # (Auto) 1.92 K/uL (0.11-0.59) Eosinophils # (Auto) 0.10 K/uL (0-0.5) Basophils # (Auto) 0.03 K/uL (0-0.2) RDW Standard Deviation 46.5 fL (36.4-46.3) RDW Coefficient of Variation 14.2 % (11.5-14.5) Immature Granulocyte % (Auto) 2.3 % Immature Granulocyte # (Auto) 0.39 K/uL (0.00-0.02) Phosphorus Level 4.2 mg/dl (2.5-4.9) Allergies Coded Allergies: No Known Allergies (Unverified , 04/08/16) Medications Current Inpatient Medications Medications (Trade) Dose Ordered Sig/Jose Route Start Time Stop Time Status Last Admin Dose Admin Acetaminophen (Tylenol Tab) 650 mg Q4H PRN PO 04/08/16 14:00 05/08/16 13:59 Ondansetron HCl (Zofran Inj) 4 mg Q6H PRN IV 04/08/16 14:00 05/08/16 13:59 Metronidazole (Flagyl Tab) 500 mg BID PO 04/09/16 09:00 04/23/16 08:59 04/10/16 20:26 500 MG Lactobacillus Acidophilus (Floranex Tab) 4 tab QID PO 04/09/16 09:00 05/09/16 08:59 04/10/16 20:27 4 TAB Pantoprazole Sodium (Protonix Tab) 40 mg DAILY PO 04/10/16 09:00 05/10/16 08:59 04/10/16 08:08 40 MG Heparin Sodium (Porcine) (Heparin Sq 5000 Unit/0.5ml) 5,000 unit Q12 SQ 04/09/16 21:00 05/09/16 20:59 04/10/16 20:29 5,000 UNIT Diphenoxylate HCl/ Atropine (Lomotil Tab) 2 tab Q6H PO 04/10/16 11:30 04/11/16 11:29 04/11/16 05:26 2 TAB Diphenoxylate HCl/ Atropine (Lomotil Tab) 2 tab Q6H PRN PO 04/11/16 11:30 05/11/16 11:29 Verapamil HCl 180 mg 180 mg QAM PO 04/11/16 09:00 05/11/16 08:59 Potassium Chloride/Sodium Chloride (02/28 Nss + 20meq KCl 1000ml) 1,000 ml @ 100 mls/hr Q10H IV 04/10/16 16:15 05/10/16 16:14 04/11/16 02:15 100 MLS/HR Impression (1) Chronic kidney disease, stage III (moderate) (2) Hypertension (3) Hypokalemia (4) Metabolic acidosis (5) Acute renal failure Mr. Jamal Rosado is a 65-year-old male with hypertension who presented to [facility] with generalized weakness and malaise in the setting of recent nausea, vomiting, diarrhea and anorexia. He has oligoanuric CAITLYN. CT scan did not show evidence of obstruction. 2.5 cm cysts noted in kidneys. He was given volume resuscitation with normal saline and started on a bicarbonate gtt. Hypotension on admission improved with IVF. No fevers or chills. No colitis on CT. WBC elevated with normal platelet count and mild anemia. Metabolic profile also notable for metabolic acidosis and hypokalemia as well as hyperphosphatemia. Additional PO + IV potassium given this morning. Repeat metabolic profile pending. IVF switched to 1/2 NS + 20 K. Stool negative for C Diff. Stool WBC not elevated. Giardia pending. CAITLYN is consistent with ATN and prerenal azotemia complicated by RADHA/HCTZ use. Urine microscopy consistent with ATN. Metabolic acidosis attributed to renal failure and diarrhea. Recommendations ACUTE KIDNEY INJURY: -- Patient likely suffered ATN due to dehydration in the setting of RADHA inhibitor therapy -- Volume status and electrolyte balance remain acceptable at this time -- Kidney function is improving. No acute indication for HD at this time -- Monitor serial PRP -- Continue gentle hydration CHRONIC KIDNEY DISEASE: -- Baseline creatinine has been 1.4 (01/12) HYPERTENSION: -- Blood pressure is currently acceptable\ -- Hold Lisinopril and HCTZ -- Continue Verapamil therapy DIARRHEA: -- Resolved -- Stool for C. Difficile, Salmonella and WBC's was negative
[2016-04-11] MEDS: HEPARIN SOD 5000 UNIT/0.5 ML CARP SQ SCH ×2 (09:00→20:20)
[2016-04-11] MEDS: VERAPAMIL HCL 180 MG TABCR PO SCH (09:48)
[2016-04-11] MEDS: PANTOprazole SOD 40 MG TAB PO SCH (09:49)
[2016-04-11] MEDS: LACTOBACILLUS ACIDOPHILUS (FLORANEX) TAB PO SCH ×4 (09:50→20:16)
[2016-04-11] MEDS: METRONIDAZOLE 500 MG TAB PO SCH ×2 (09:50→20:17)
[2016-04-11] MEDS ORDERED: DIPHENOXYLATE/ATROPINE 2.5/0.025MG TAB PO PRN (11:30)
--- NOTE | 2016-04-11 20:35 | Progress Note ---
Subjective Date of Service: Apr 11, 2016. Subjective Pt evaluation today including: conversation w/ patient, conversation w/ family , physical exam, chart review, lab review Problem List Medical Problems: (1) Leukocytosis Status: Acute (2) Renal failure Status: Acute Review of Systems Constitutional: No chills, No fatigue, No fever, No problem reported, No see HPI, No sweats, No weakness, No weight loss Eyes: No diplopia, No discharge, No eye pain, No problem reported, No redness, No see HPI, No worsening of vision ENT: No dental problems, No hearing loss, No nasal symptoms, No problem reported, No see HPI, No sore throat, No tinnitus, No trouble swallowing, No unusual epistaxis Respiratory: No cough, No dyspnea at rest, No dyspnea on exertion, No hemoptysis, No problem reported, No see HPI, No shortness of breath, No sputum, No wheezing Cardiac: No PND, No chest pain, No claudication, No edema, No orthopnea, No palpitations, No problem reported, No see HPI Abdomen: No GI bleeding, No constipation, No diarrhea, No nausea, No pain, No problem reported, No see HPI, No vomiting Musculoskeletal: No calf pain, No joint pain, No muscle pain, No problem reported, No see HPI, No swelling Neurologic: No balance problems, No memory loss, No numbness/tingling, No paralysis, No problem reported, No see HPI, No vertigo, No weakness Heme: No abnormal bleeding/bruising, No clotting problems, No night sweats, No problem reported, No see HPI, No swollen lymph nodes Endo: No excessive thirst, No excessive urination, No fatigue, No problem reported, No see HPI Skin: No bleeding, No color change, No itch, No new/changing skin lesions, No problem reported, No rash, No see HPI Medications Current Inpatient Medications Medications (Trade) Dose Ordered Sig/Jose Route Start Time Stop Time Status Last Admin Dose Admin Acetaminophen (Tylenol Tab) 650 mg Q4H PRN PO 04/08/16 14:00 05/08/16 13:59 Ondansetron HCl (Zofran Inj) 4 mg Q6H PRN IV 04/08/16 14:00 05/08/16 13:59 04/11/16 09:53 4 MG Metronidazole (Flagyl Tab) 500 mg BID PO 04/09/16 09:00 04/23/16 08:59 04/11/16 20:17 500 MG Lactobacillus Acidophilus (Floranex Tab) 4 tab QID PO 04/09/16 09:00 05/09/16 08:59 04/11/16 20:16 4 TAB Pantoprazole Sodium (Protonix Tab) 40 mg DAILY PO 04/10/16 09:00 05/10/16 08:59 04/11/16 09:49 40 MG Heparin Sodium (Porcine) (Heparin Sq 5000 Unit/0.5ml) 5,000 unit Q12 SQ 04/09/16 21:00 05/09/16 20:59 04/11/16 20:20 5,000 UNIT Diphenoxylate HCl/ Atropine (Lomotil Tab) 2 tab Q6H PRN PO 04/11/16 11:30 05/11/16 11:29 Verapamil HCl 180 mg 180 mg QAM PO 04/11/16 09:00 05/11/16 08:59 04/11/16 09:48 180 MG Potassium Chloride/Sodium Chloride (1/2 Nss + 20meq KCl 1000ml) 1,000 ml @ 100 mls/hr Q10H IV 04/10/16 16:15 05/10/16 16:14 04/11/16 12:15 100 MLS/HR Objective Vital Signs Date Time Temp Pulse Resp B/P Pulse Ox O2 Delivery O2 Flow Rate FiO2 04/11/16 19:41 36.7 64 20 150/79 97 Room Air 04/11/16 16:00 97 Room Air 04/11/16 15:44 36.8 66 22 127/80 97 Room Air 04/11/16 12:00 93 Room Air 04/11/16 11:31 36.2 60 18 112/67 94 Room Air 04/11/16 08:00 92 Room Air 04/11/16 07:50 36.4 59 19 136/73 92 Room Air 04/11/16 04:00 97 Room Air 04/11/16 03:44 36.1 67 20 117/67 97 Room Air 04/11/16 00:03 36.6 68 20 128/77 95 Room Air 04/10/16 23:59 Room Air Physical Exam General Appearance: no apparent distress Eyes: normal inspection, EOMI ENT: normal ENT inspection, hearing grossly normal Neck: supple Respiratory/Chest: chest non-tender, lungs clear, normal breath sounds, no respiratory distress, no accessory muscle use Cardiovascular: regular rate, rhythm, no edema, no gallop, no JVD, no murmur Abdomen: normal bowel sounds, non tender, soft Extremities: normal range of motion, non-tender, no pedal edema Neurologic/Psychiatric: volunteer services specialist II-XII nml as tested, no motor/sensory deficits, alert, normal mood/affect, oriented x 3 Skin: normal color, warm/dry, no rash Laboratory Results Last 24 Hours Test 04/10/16 21:05 04/11/16 05:15 Sodium Level 143 mmol/L 143 mmol/L Potassium Level 3.8 mmol/L 3.7 mmol/L Chloride Level 106 mmol/L 107 mmol/L Carbon Dioxide Level 20 mmol/L 22 mmol/L Anion Gap 17.0 mmol/L 14.0 mmol/L Blood Urea Nitrogen 92 mg/dl 91 mg/dl Creatinine 8.70 mg/dl 8.10 mg/dl Est Creatinine Clear Calc Drug Dose 11.1 ml/min 12.0 ml/min Estimated GFR () 6.7 7.3 Estimated GFR (Non- 5.8 6.3 BUN/Creatinine Ratio 10.6 11.2 Random Glucose 99 mg/dl 96 mg/dl Calcium Level 7.3 mg/dl 6.9 mg/dl Magnesium Level 2.2 mg/dl 2.2 mg/dl White Blood Count 16.88 K/uL Red Blood Count 3.92 M/uL Hemoglobin 12.6 g/dL Hematocrit 35.0 % Mean Corpuscular Volume 89.3 fL Mean Corpuscular Hemoglobin 32.1 pg Mean Corpuscular Hemoglobin Concent 36.0 g/dl Platelet Count 263 K/uL Mean Platelet Volume 10.2 fL Neutrophils (%) (Auto) 75.5 % Lymphocytes (%) (Auto) 10.0 % Monocytes (%) (Auto) 11.4 % Eosinophils (%) (Auto) 0.6 % Basophils (%) (Auto) 0.2 % Neutrophils # (Auto) 12.75 K/uL Lymphocytes # (Auto) 1.69 K/uL Monocytes # (Auto) 1.92 K/uL Eosinophils # (Auto) 0.10 K/uL Basophils # (Auto) 0.03 K/uL RDW Standard Deviation 46.5 fL RDW Coefficient of Variation 14.2 % Immature Granulocyte % (Auto) 2.3 % Immature Granulocyte # (Auto) 0.39 K/uL Phosphorus Level 4.2 mg/dl Assessment and Plan CAITLYN/ATN , multifactorial (diarrhea/dehydration/ACEI/HCTZ) -improving -collar trimmer consult appreciated (no indication for dialysis) -continue supportive care -continue holding ACEI/HCTZ -continue IVFs as per collar trimmer Leukocytosis, likely reactive nausea/vomiting/diarrhea -improved, possible viral infection heme positive stools -no appearance of significant hemorrhage at this time HTN HOLD Lisinopril/HCTZ 20/12.5 mg daily start verapamil 360 mg continue to follow BP DVT proph: hold chemical anticoagulation with heme + stool, scds CODE STATUS: FULL CODE Dispostion: From home, lives alone. CM to assist.
[2016-04-12] VITALS (9 sets, daily range): BP systolic 123–155; BP diastolic 79–91; PULSE 67–71; TEMP 36.5–36.8; O2SAT 94–97
[2016-04-12 07:00] LABS: BASO % 0.2 %; BASO ABS # 0.04 K/uL (0-0.2); COMPLETE YES; EOS % 1.1 %; HEMATOCRIT 38.8 % (42-52); IG% 2.4 %; LYMPH % 10.8 %; LYMPH ABS # 1.99 K/uL (1.2-3.4); MEAN CELL VOLUME 89.4 fL (80-100); MEAN CORPUSCULAR HGB CONC 35.8 g/dl (32-36); MEAN PLATELET VOLUME 9.7 fL (7.4-10.4); MONO % 9.4 %; NEUT % 76.1 %; PLATELET COUNT 285 K/uL (130-400); RED BLOOD COUNT 4.34 M/uL (4.7-6.1); WHITE BLOOD COUNT 18.49 K/uL (4.8-10.8)
[2016-04-12 07:50] LABS: ALB/GLOB RATIO 0.6 (0.9-2); BUN/CREATININE RATIO 15.5 (10-20); CALCIUM 7.3 mg/dl (8.5-10.1); CREATININE 4.5 mg/dl (0.60-1.40); MAGNESIUM 2.2 mg/dl (1.8-2.4); PHOSPHORUS 3.2 mg/dl (2.5-4.9); POTASSIUM 3.8 mmol/L (3.5-5.1)
[2016-04-12] MEDS: LACTOBACILLUS ACIDOPHILUS (FLORANEX) TAB PO SCH ×4 (08:55→20:58)
[2016-04-12] MEDS: SODIUM CHLOR 0.45% + 20MEQ KCL 1,000 ML IV SCH ×2 (08:55→17:54)
[2016-04-12] MEDS: METRONIDAZOLE 500 MG TAB PO SCH ×2 (08:56→20:57)
[2016-04-12] MEDS: VERAPAMIL HCL 180 MG TABCR PO SCH (08:56)
[2016-04-12] MEDS: PANTOprazole SOD 40 MG TAB PO SCH (08:56)
[2016-04-12] MEDS: HEPARIN SOD 5000 UNIT/0.5 ML CARP SQ SCH ×2 (09:29→21:52)
--- NOTE | 2016-04-12 09:57 | Nephrology Progress Note ---
Nephrology Progress Note Date of Service Apr 12, 2016. Chief Complaint Follow up evaluation of acute on chronic kidney injury Subjective Mr. Rosado was seen and examined in the PCU this morning. He was admitted to the hospital with diarrhea, dehydration and acute on chronic kidney injury. The patient's baseline creatinine has been 1.4 (01/12). He presented to the hospital w/ SBP ~ 70, dehydration and serum creatinine of 13.0. Mr. Rosado reports that his diarrhea has resolved. He is tolerating a regular diet. His urine output has improved. He voices no new medical concerns at this time. The patient has a h/o arterial hypertension. He had been on Lisinopril and HCTZ. These medications have been held. He remains on Verapamil therapy. Review of Systems Constitutional: No fever Cardiovascular: No chest pain Respiratory: No dyspnea at rest Abdomen: No diarrhea, No nausea, No pain Extremities: No leg edema A complete review of systems was performed. Pertinent positives are noted above. All other systems are negative. Vital Signs Last 8 Hrs Date Time Temp Pulse Resp B/P Pulse Ox O2 Delivery O2 Flow Rate FiO2 04/12/16 07:46 36.5 68 22 140/91 97 Room Air 04/12/16 04:00 94 Room Air 04/12/16 03:36 36.7 67 20 150/82 94 Room Air I & O 24-Hour Column 04/12/16 07:59 Intake Total 3173 ml Output Total 3500 ml Balance -327 ml Last Recorded Weight Weight (Kilograms): 115.700 Physical Exam General Appearance: no apparent distress Head: normocephalic, atraumatic Eyes: PERRL, EOMI Neck: no adenopathy Respiratory/Chest: lungs clear Cardiovascular: regular rate, rhythm Back: no CVA tenderness Abdomen/GI: normal bowel sounds, non tender, soft Extremities/Musculoskelatal: no calf tenderness, no pedal edema Neurologic/Psych: alert, oriented x 3 Family History Patient reports no known family medical history. Social History Smokeless Tobacco Use: Yes (current user) Alcohol Use: daily 2-3 beers Drug Use: none Marital Status: single Housing Status: lives alone Occupation: retired Laboratory Results Past 24 Hours 04/12/16 06:13 Red Blood Count 4.34, Mean Corpuscular Volume 89.4, Mean Corpuscular Hemoglobin 32.0, Mean Corpuscular Hemoglobin Concent 35.8, Mean Platelet Volume 9.7, Neutrophils (%) (Auto) 76.1, Lymphocytes (%) (Auto) 10.8, Monocytes (%) (Auto) 9.4, Eosinophils (%) (Auto) 1.1, Basophils (%) (Auto) 0.2, Neutrophils # (Auto) 14.08, Lymphocytes # (Auto) 1.99, Monocytes # (Auto) 1.73, Eosinophils # (Auto) 0.20, Basophils # (Auto) 0.04 04/12/16 06:13 Test 04/12/16 06:13 White Blood Count 18.49 K/uL (4.8-10.8) Red Blood Count 4.34 M/uL (4.7-6.1) Hemoglobin 13.9 g/dL (14.0-18.0) Hematocrit 38.8 % (42-52) Mean Corpuscular Volume 89.4 fL (80-100) Mean Corpuscular Hemoglobin 32.0 pg (25-34) Mean Corpuscular Hemoglobin Concent 35.8 g/dl (32-36) Platelet Count 285 K/uL (130-400) Mean Platelet Volume 9.7 fL (7.4-10.4) Neutrophils (%) (Auto) 76.1 % Lymphocytes (%) (Auto) 10.8 % Monocytes (%) (Auto) 9.4 % Eosinophils (%) (Auto) 1.1 % Basophils (%) (Auto) 0.2 % Neutrophils # (Auto) 14.08 K/uL (1.4-6.5) Lymphocytes # (Auto) 1.99 K/uL (1.2-3.4) Monocytes # (Auto) 1.73 K/uL (0.11-0.59) Eosinophils # (Auto) 0.20 K/uL (0-0.5) Basophils # (Auto) 0.04 K/uL (0-0.2) RDW Standard Deviation 46.4 fL (36.4-46.3) RDW Coefficient of Variation 14.1 % (11.5-14.5) Immature Granulocyte % (Auto) 2.4 % Immature Granulocyte # (Auto) 0.45 K/uL (0.00-0.02) Anion Gap 13.0 mmol/L (3-11) Est Creatinine Clear Calc Drug Dose 21.4 ml/min Estimated GFR () 14.9 Estimated GFR (Non- 12.9 BUN/Creatinine Ratio 15.5 (10-20) Calcium Level 7.3 mg/dl (8.5-10.1) Phosphorus Level 3.2 mg/dl (2.5-4.9) Magnesium Level 2.2 mg/dl (1.8-2.4) Total Bilirubin 0.5 mg/dl (0.2-1) Aspartate Amino Transf (AST/SGOT) 19 U/L (15-37) Alanine Aminotransferase (ALT/SGPT) 32 U/L (12-78) Alkaline Phosphatase 67 U/L (45-117) Total Protein 6.5 gm/dl (6.4-8.2) Albumin 2.5 gm/dl (3.4-5.0) Globulin 4.0 gm/dl (2.5-4.0) Albumin/Globulin Ratio 0.6 (0.9-2) Allergies Coded Allergies: No Known Allergies (Unverified , 04/08/16) Medications Current Inpatient Medications Medications (Trade) Dose Ordered Sig/Jose Route Start Time Stop Time Status Last Admin Dose Admin Acetaminophen (Tylenol Tab) 650 mg Q4H PRN PO 04/08/16 14:00 05/08/16 13:59 Ondansetron HCl (Zofran Inj) 4 mg Q6H PRN IV 04/08/16 14:00 05/08/16 13:59 04/11/16 09:53 4 MG Metronidazole (Flagyl Tab) 500 mg BID PO 04/09/16 09:00 04/23/16 08:59 04/12/16 08:56 500 MG Lactobacillus Acidophilus (Floranex Tab) 4 tab QID PO 04/09/16 09:00 05/09/16 08:59 04/12/16 08:55 4 TAB Pantoprazole Sodium (Protonix Tab) 40 mg DAILY PO 04/10/16 09:00 05/10/16 08:59 04/12/16 08:56 40 MG Heparin Sodium (Porcine) (Heparin Sq 5000 Unit/0.5ml) 5,000 unit Q12 SQ 04/09/16 21:00 05/09/16 20:59 04/12/16 09:29 5,000 UNIT Diphenoxylate HCl/ Atropine (Lomotil Tab) 2 tab Q6H PRN PO 04/11/16 11:30 05/11/16 11:29 Verapamil HCl 180 mg 180 mg QAM PO 04/11/16 09:00 05/11/16 08:59 04/12/16 08:56 180 MG Potassium Chloride/Sodium Chloride (1/2 Nss + 20meq KCl 1000ml) 1,000 ml @ 100 mls/hr Q10H IV 04/10/16 16:15 05/10/16 16:14 04/12/16 08:55 100 MLS/HR Impression (1) Chronic kidney disease, stage III (moderate) (2) Hypertension (3) Hypokalemia (4) Metabolic acidosis (5) Acute renal failure Mr. Rosado presented to the ED for evaluation of generalized weakness. He had been suffering from diarrhea and dehydration. He remained on his RADHA inhibitor and diuretic. Upon presentation he was found to have oliguric CAITLYN w/ creatinine 14.0. He was hypotensive w/ SBP in the mid 70's. He was hydrated w / normal saline and started on a bicarbonate gtt. His blood pressure recovered and he has converted to a nonoliguric state. He is now in the recovery phase of ATN. CAITLYN is consistent with ATN and prerenal azotemia complicated by RADHA/HCTZ use. Urine microscopy consistent with ATN. Metabolic acidosis attributed to renal failure and diarrhea. Recommendations ACUTE KIDNEY INJURY: -- Patient likely suffered ATN due to dehydration in the setting of RADHA inhibitor therapy -- Volume status and electrolyte balance remain acceptable at this time -- Kidney function is improving. No acute indication for HD at this time -- Monitor serial PRP -- Continue gentle hydration CHRONIC KIDNEY DISEASE: -- Baseline creatinine has been 1.4 (01/12) HYPERTENSION: -- Blood pressure is currently acceptable -- Hold Lisinopril and HCTZ -- Continue Verapamil therapy DIARRHEA: -- Resolved -- Stool for C. Difficile, Salmonella and WBC's was negative
--- NOTE | 2016-04-12 15:28 | Progress Note ---
Subjective Date of Service: Apr 12, 2016. Subjective Pt evaluation today including: conversation w/ patient, physical exam, lab review Voiding: no voiding problems, talamantes catheter in place Problem List Medical Problems: (1) Leukocytosis Status: Acute (2) Renal failure Status: Acute Review of Systems Constitutional: No chills, No fatigue, No fever, No problem reported, No see HPI, No sweats, No weakness, No weight loss Eyes: No diplopia, No discharge, No eye pain, No problem reported, No redness, No see HPI, No worsening of vision Respiratory: No cough, No dyspnea at rest, No dyspnea on exertion, No hemoptysis, No problem reported, No see HPI, No shortness of breath, No sputum, No wheezing Cardiac: No PND, No chest pain, No claudication, No edema, No orthopnea, No palpitations, No problem reported, No see HPI Abdomen: No GI bleeding, No constipation, No diarrhea, No nausea, No pain, No problem reported, No see HPI, No vomiting Musculoskeletal: No calf pain, No joint pain, No muscle pain, No problem reported, No see HPI, No swelling Neurologic: No balance problems, No memory loss, No numbness/tingling, No paralysis, No problem reported, No see HPI, No vertigo, No weakness Psychiatric: No anhedonism, No anxiety, No depression symptoms, No insomnia, No problem reported, No see HPI, No substance abuse Skin: No bleeding, No color change, No itch, No new/changing skin lesions, No problem reported, No rash, No see HPI Medications Current Inpatient Medications Medications (Trade) Dose Ordered Sig/Jose Route Start Time Stop Time Status Last Admin Dose Admin Acetaminophen (Tylenol Tab) 650 mg Q4H PRN PO 04/08/16 14:00 05/08/16 13:59 Ondansetron HCl (Zofran Inj) 4 mg Q6H PRN IV 04/08/16 14:00 05/08/16 13:59 04/11/16 09:53 4 MG Metronidazole (Flagyl Tab) 500 mg BID PO 04/09/16 09:00 04/23/16 08:59 04/12/16 08:56 500 MG Lactobacillus Acidophilus (Floranex Tab) 4 tab QID PO 04/09/16 09:00 05/09/16 08:59 04/12/16 14:01 4 TAB Pantoprazole Sodium (Protonix Tab) 40 mg DAILY PO 04/10/16 09:00 05/10/16 08:59 04/12/16 08:56 40 MG Heparin Sodium (Porcine) (Heparin Sq 5000 Unit/0.5ml) 5,000 unit Q12 SQ 04/09/16 21:00 05/09/16 20:59 04/12/16 09:29 5,000 UNIT Diphenoxylate HCl/ Atropine (Lomotil Tab) 2 tab Q6H PRN PO 04/11/16 11:30 05/11/16 11:29 Verapamil HCl 180 mg 180 mg QAM PO 04/11/16 09:00 05/11/16 08:59 04/12/16 08:56 180 MG Potassium Chloride/Sodium Chloride (1/2 Nss + 20meq KCl 1000ml) 1,000 ml @ 100 mls/hr Q10H IV 04/10/16 16:15 05/10/16 16:14 04/12/16 08:55 100 MLS/HR Objective Vital Signs Date Time Temp Pulse Resp B/P Pulse Ox O2 Delivery O2 Flow Rate FiO2 04/12/16 12:00 97 Room Air 04/12/16 11:42 36.7 71 19 123/79 96 Room Air 04/12/16 08:00 97 Room Air 04/12/16 07:46 36.5 68 22 140/91 97 Room Air 04/12/16 04:00 94 Room Air 04/12/16 03:36 36.7 67 20 150/82 94 Room Air 04/11/16 23:59 98 Room Air 04/11/16 23:27 36.8 60 20 158/79 98 Room Air 04/11/16 20:00 97 Room Air 04/11/16 19:41 36.7 64 20 150/79 97 Room Air 04/11/16 16:00 97 Room Air 04/11/16 15:44 36.8 66 22 127/80 97 Room Air Physical Exam General Appearance: WD/WN, no apparent distress Eyes: normal inspection, EOMI ENT: normal ENT inspection, hearing grossly normal, TMs normal Neck: supple, no adenopathy, thyroid normal Respiratory/Chest: chest non-tender, lungs clear, normal breath sounds, no respiratory distress, no accessory muscle use Cardiovascular: regular rate, rhythm, no edema, no gallop, no JVD, no murmur Abdomen: normal bowel sounds, non tender, soft, no organomegaly Extremities: normal range of motion, non-tender, normal inspection, no pedal edema, no calf tenderness Neurologic/Psychiatric: 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 as tested, no motor/sensory deficits, alert, normal mood/affect, oriented x 3 Skin: normal color, warm/dry, no rash Laboratory Results Last 24 Hours Test 04/12/16 06:13 White Blood Count 18.49 K/uL Red Blood Count 4.34 M/uL Hemoglobin 13.9 g/dL Hematocrit 38.8 % Mean Corpuscular Volume 89.4 fL Mean Corpuscular Hemoglobin 32.0 pg Mean Corpuscular Hemoglobin Concent 35.8 g/dl Platelet Count 285 K/uL Mean Platelet Volume 9.7 fL Neutrophils (%) (Auto) 76.1 % Lymphocytes (%) (Auto) 10.8 % Monocytes (%) (Auto) 9.4 % Eosinophils (%) (Auto) 1.1 % Basophils (%) (Auto) 0.2 % Neutrophils # (Auto) 14.08 K/uL Lymphocytes # (Auto) 1.99 K/uL Monocytes # (Auto) 1.73 K/uL Eosinophils # (Auto) 0.20 K/uL Basophils # (Auto) 0.04 K/uL RDW Standard Deviation 46.4 fL RDW Coefficient of Variation 14.1 % Immature Granulocyte % (Auto) 2.4 % Immature Granulocyte # (Auto) 0.45 K/uL Sodium Level 143 mmol/L Potassium Level 3.8 mmol/L Chloride Level 110 mmol/L Carbon Dioxide Level 20 mmol/L Anion Gap 13.0 mmol/L Blood Urea Nitrogen 70 mg/dl Creatinine 4.50 mg/dl Est Creatinine Clear Calc Drug Dose 21.4 ml/min Estimated GFR () 14.9 Estimated GFR (Non- 12.9 BUN/Creatinine Ratio 15.5 Random Glucose 119 mg/dl Calcium Level 7.3 mg/dl Phosphorus Level 3.2 mg/dl Magnesium Level 2.2 mg/dl Total Bilirubin 0.5 mg/dl Aspartate Amino Transf (AST/SGOT) 19 U/L Alanine Aminotransferase (ALT/SGPT) 32 U/L Alkaline Phosphatase 67 U/L Total Protein 6.5 gm/dl Albumin 2.5 gm/dl Globulin 4.0 gm/dl Albumin/Globulin Ratio 0.6 Assessment and Plan CAITLYN/ATN , multifactorial (diarrhea/dehydration/ACEI/HCTZ) -improving, creatinine is 4-5 today -manager plumbing consult appreciated (no indication for dialysis) -continue supportive care -continue holding ACEI/HCTZ -continue IVFs as per manager plumbing Leukocytosis, likely reactive, will follow up nausea/vomiting/diarrhea -improved, possible viral infection heme positive stools -no appearance of significant hemorrhage at this time HTN HOLD Lisinopril/HCTZ 20/12.5 mg daily start verapamil 360 mg continue to follow BP DVT proph: hold chemical anticoagulation with heme + stool, scds CODE STATUS: FULL CODE Dispostion: From home, lives alone. CM to assist.
[2016-04-13] VITALS (8 sets, daily range): BP systolic 119–157; BP diastolic 65–90; PULSE 58–72; TEMP 36.6–37.2; O2SAT 93–97
[2016-04-13 01:19] LABS: O&P GIARDIA AG NOT DETECTED (NOT DETECTED)
[2016-04-13] MEDS: SODIUM CHLOR 0.45% + 20MEQ KCL 1,000 ML IV SCH ×2 (03:54→14:27)
[2016-04-13 06:19] LABS: HEMATOCRIT 37.6 % (42-52); MEAN CELL VOLUME 90.4 fL (80-100); MEAN CORPUSCULAR HEMOGLOBIN 31.7 pg (25-34); MEAN CORPUSCULAR HGB CONC 35.1 g/dl (32-36); MEAN PLATELET VOLUME 9.5 fL (7.4-10.4); PLATELET COUNT 265 K/uL (130-400); RED BLOOD COUNT 4.16 M/uL (4.7-6.1); WHITE BLOOD COUNT 16.81 K/uL (4.8-10.8)
[2016-04-13 06:49] LABS: BASO % 0.1 %; BASO ABS # 0.02 K/uL (0-0.2); COMPLETE YES; EOS % 1.3 %; IG% 2.3 %; LYMPH ABS # 2.19 K/uL (1.2-3.4); MONO % 9.1 %; NEUT % 74.2 %
[2016-04-13 06:55] LABS: BUN/CREATININE RATIO 17.7 (10-20); CALCIUM 7.2 mg/dl (8.5-10.1); CREATININE 2.6 mg/dl (0.60-1.40); PHOSPHORUS 2.3 mg/dl (2.5-4.9)
[2016-04-13] MEDS: VERAPAMIL HCL 180 MG TABCR PO SCH (07:35)
[2016-04-13] MEDS: METRONIDAZOLE 500 MG TAB PO SCH ×2 (07:35→20:46)
[2016-04-13] MEDS: PANTOprazole SOD 40 MG TAB PO SCH (07:36)
[2016-04-13] MEDS: LACTOBACILLUS ACIDOPHILUS (FLORANEX) TAB PO SCH ×4 (07:36→20:46)
[2016-04-13] MEDS: HEPARIN SOD 5000 UNIT/0.5 ML CARP SQ SCH ×2 (07:39→20:49)
--- NOTE | 2016-04-13 14:57 | Nephrology Progress Note ---
Nephrology Progress Note Date of Service Apr 13, 2016. Chief Complaint Follow up evaluation of acute on chronic kidney injury Subjective Mr. Rosado was seen and examined in the PCU this morning. He was admitted to the hospital with diarrhea, dehydration and acute on chronic kidney injury. The patient's baseline creatinine has been 1.4 (01/12). He presented to the hospital w/ SBP ~ 70, dehydration and serum creatinine of 13.0. Mr. Rosado reports that his diarrhea has resolved. He is tolerating a regular diet. His urine output has improved. He is tolerating IV hydration without dyspnea or lower extremity edema. He voices no new medical concerns at this time. The patient has a h/o arterial hypertension. He had been on Lisinopril and HCTZ. These medications have been held. He remains on Verapamil therapy. Review of Systems Constitutional: No fever Cardiovascular: No chest pain Respiratory: No dyspnea at rest Abdomen: No diarrhea, No nausea, No pain, No vomiting Genitourinary - Male: No dysuria, No gross hematuria Extremities: No leg edema A complete review of systems was performed. Pertinent positives are noted above. All other systems are negative. Vital Signs Last 8 Hrs Date Time Temp Pulse Resp B/P Pulse Ox O2 Delivery O2 Flow Rate FiO2 04/13/16 12:00 Room Air 04/13/16 10:36 36.6 69 20 153/90 96 Room Air 04/13/16 08:00 95 Room Air 04/13/16 08:00 36.8 70 18 142/82 95 Room Air I & O 24-Hour Column 04/13/16 07:59 Intake Total 2763 ml Output Total 2400 ml Balance 363 ml Last Recorded Weight Weight (Kilograms): 114.300 Physical Exam General Appearance: no apparent distress Head: normocephalic, atraumatic Eyes: PERRL, EOMI Neck: no adenopathy, no JVD Respiratory/Chest: lungs clear, no respiratory distress Cardiovascular: regular rate, rhythm Abdomen/GI: normal bowel sounds, non tender, soft Extremities/Musculoskelatal: no calf tenderness, no pedal edema Neurologic/Psych: alert, oriented x 3 Family History Patient reports no known family medical history. Social History Smokeless Tobacco Use: Yes (current user) Alcohol Use: daily 2-3 beers Drug Use: none Marital Status: single Housing Status: lives alone Occupation: retired Laboratory Results Past 24 Hours 2/15/17 05:43 Red Blood Count 4.16, Mean Corpuscular Volume 90.4, Mean Corpuscular Hemoglobin 31.7, Mean Corpuscular Hemoglobin Concent 35.1, Mean Platelet Volume 9.5, Neutrophils (%) (Auto) 74.2, Lymphocytes (%) (Auto) 13.0, Monocytes (%) (Auto) 9.1, Eosinophils (%) (Auto) 1.3, Basophils (%) (Auto) 0.1, Neutrophils # (Auto) 12.47, Lymphocytes # (Auto) 2.19, Monocytes # (Auto) 1.53, Eosinophils # (Auto) 0.22, Basophils # (Auto) 0.02 04/13/16 05:43 Test 04/13/16 05:43 White Blood Count 16.81 K/uL (4.8-10.8) Red Blood Count 4.16 M/uL (4.7-6.1) Hemoglobin 13.2 g/dL (14.0-18.0) Hematocrit 37.6 % (42-52) Mean Corpuscular Volume 90.4 fL (80-100) Mean Corpuscular Hemoglobin 31.7 pg (25-34) Mean Corpuscular Hemoglobin Concent 35.1 g/dl (32-36) Platelet Count 265 K/uL (130-400) Mean Platelet Volume 9.5 fL (7.4-10.4) Neutrophils (%) (Auto) 74.2 % Lymphocytes (%) (Auto) 13.0 % Monocytes (%) (Auto) 9.1 % Eosinophils (%) (Auto) 1.3 % Basophils (%) (Auto) 0.1 % Neutrophils # (Auto) 12.47 K/uL (1.4-6.5) Lymphocytes # (Auto) 2.19 K/uL (1.2-3.4) Monocytes # (Auto) 1.53 K/uL (0.11-0.59) Eosinophils # (Auto) 0.22 K/uL (0-0.5) Basophils # (Auto) 0.02 K/uL (0-0.2) RDW Standard Deviation 46.9 fL (36.4-46.3) RDW Coefficient of Variation 14.2 % (11.5-14.5) Immature Granulocyte % (Auto) 2.3 % Immature Granulocyte # (Auto) 0.38 K/uL (0.00-0.02) Anion Gap 10.0 mmol/L (3-11) Est Creatinine Clear Calc Drug Dose 36.9 ml/min Estimated GFR () 28.9 Estimated GFR (Non- 24.9 BUN/Creatinine Ratio 17.7 (10-20) Calcium Level 7.2 mg/dl (8.5-10.1) Phosphorus Level 2.3 mg/dl (2.5-4.9) Magnesium Level 2.0 mg/dl (1.8-2.4) Allergies Coded Allergies: No Known Allergies (Unverified , 04/08/16) Medications Current Inpatient Medications Medications (Trade) Dose Ordered Sig/Jose Route Start Time Stop Time Status Last Admin Dose Admin Acetaminophen (Tylenol Tab) 650 mg Q4H PRN PO 04/08/16 14:00 05/08/16 13:59 Ondansetron HCl (Zofran Inj) 4 mg Q6H PRN IV 04/08/16 14:00 05/08/16 13:59 04/11/16 09:53 4 MG Metronidazole (Flagyl Tab) 500 mg BID PO 04/09/16 09:00 04/23/16 08:59 04/13/16 07:35 500 MG Lactobacillus Acidophilus (Floranex Tab) 4 tab QID PO 04/09/16 09:00 05/09/16 08:59 04/13/16 11:50 4 TAB Pantoprazole Sodium (Protonix Tab) 40 mg DAILY PO 04/10/16 09:00 05/10/16 08:59 04/13/16 07:36 40 MG Heparin Sodium (Porcine) (Heparin Sq 5000 Unit/0.5ml) 5,000 unit Q12 SQ 04/09/16 21:00 05/09/16 20:59 04/13/16 07:39 5,000 UNIT Diphenoxylate HCl/ Atropine (Lomotil Tab) 2 tab Q6H PRN PO 04/11/16 11:30 05/11/16 11:29 Verapamil HCl 180 mg 180 mg QAM PO 04/11/16 09:00 05/11/16 08:59 04/13/16 07:35 180 MG Potassium Chloride/Sodium Chloride (1/2 Nss + 20meq KCl 1000ml) 1,000 ml @ 100 mls/hr Q10H IV 04/10/16 16:15 05/10/16 16:14 04/13/16 14:27 100 MLS/HR Impression (1) Chronic kidney disease, stage III (moderate) (2) Hypertension (3) Hypokalemia (4) Metabolic acidosis (5) Acute renal failure Mr. Rosado presented to the ED for evaluation of generalized weakness. He had been suffering from diarrhea and dehydration. He remained on his RADHA inhibitor and diuretic. Upon presentation he was found to have oliguric CAITLYN w/ creatinine 14.0. He was hypotensive w/ SBP in the mid 70's. He was hydrated w / normal saline and started on a bicarbonate gtt. His blood pressure recovered and he has converted to a nonoliguric state. He is now in the recovery phase of ATN. CAITLYN is c/w ATN and prerenal azotemia complicated by RADHA/HCTZ use. Urine microscopy consistent with ATN. Metabolic acidosis attributed to renal failure and diarrhea. Recommendations ACUTE KIDNEY INJURY: -- Patient likely suffered ATN due to dehydration in the setting of RADHA inhibitor therapy -- Volume status and electrolyte balance remain acceptable at this time -- Kidney function is improving. No acute indication for HD at this time -- Recommend continued hospitalization until serum creatinine is 2.0 or less -- Monitor serial PRP -- Continue gentle hydration CHRONIC KIDNEY DISEASE: -- Baseline creatinine has been 1.4 (01/12) HYPERTENSION: -- Blood pressure is mildly elevated -- Hold Lisinopril and HCTZ -- Continue Verapamil therapy DIARRHEA: -- Resolved -- Stool for C. Difficile, Salmonella and WBC's was negative
--- NOTE | 2016-04-13 17:15 | Progress Note ---
Subjective Date of Service: Apr 13, 2016. Subjective Pt evaluation today including: conversation w/ patient, conversation w/ family , physical exam, chart review, lab review Problem List Medical Problems: (1) Leukocytosis Status: Acute (2) Renal failure Status: Acute Review of Systems Constitutional: No chills, No fatigue, No fever, No problem reported, No see HPI, No sweats, No weakness, No weight loss Eyes: No diplopia, No discharge, No eye pain, No problem reported, No redness, No see HPI, No worsening of vision ENT: No dental problems, No hearing loss, No nasal symptoms, No problem reported, No see HPI, No sore throat, No tinnitus, No trouble swallowing, No unusual epistaxis Respiratory: No cough, No dyspnea at rest, No dyspnea on exertion, No hemoptysis, No problem reported, No see HPI, No shortness of breath, No sputum, No wheezing Cardiac: No PND, No chest pain, No claudication, No edema, No orthopnea, No palpitations, No problem reported, No see HPI Breast: No breast lump, No breast pain, No change in shape, No nipple discharge , No problem reported, No see HPI Abdomen: No GI bleeding, No constipation, No diarrhea, No nausea, No pain, No problem reported, No see HPI, No vomiting Musculoskeletal: No calf pain, No joint pain, No muscle pain, No problem reported, No see HPI, No swelling Male : No dysuria, No hematuria, No incontinence, No nocturia more than once/ night, No problem reported, No see HPI, No sexual dysfunction, No slowing stream , No urinary frequency Neurologic: No balance problems, No memory loss, No numbness/tingling, No paralysis, No problem reported, No see HPI, No vertigo, No weakness Psychiatric: No anhedonism, No anxiety, No depression symptoms, No insomnia, No problem reported, No see HPI, No substance abuse Heme: No abnormal bleeding/bruising, No clotting problems, No night sweats, No problem reported, No see HPI, No swollen lymph nodes Endo: No excessive thirst, No excessive urination, No fatigue, No problem reported, No see HPI Skin: No bleeding, No color change, No itch, No new/changing skin lesions, No problem reported, No rash, No see HPI Medications Current Inpatient Medications Medications (Trade) Dose Ordered Sig/Jose Route Start Time Stop Time Status Last Admin Dose Admin Acetaminophen (Tylenol Tab) 650 mg Q4H PRN PO 04/08/16 14:00 05/08/16 13:59 Ondansetron HCl (Zofran Inj) 4 mg Q6H PRN IV 04/08/16 14:00 05/08/16 13:59 04/11/16 09:53 4 MG Metronidazole (Flagyl Tab) 500 mg BID PO 04/09/16 09:00 04/23/16 08:59 04/13/16 07:35 500 MG Lactobacillus Acidophilus (Floranex Tab) 4 tab QID PO 04/09/16 09:00 05/09/16 08:59 04/13/16 16:24 4 TAB Pantoprazole Sodium (Protonix Tab) 40 mg DAILY PO 04/10/16 09:00 05/10/16 08:59 04/13/16 07:36 40 MG Heparin Sodium (Porcine) (Heparin Sq 5000 Unit/0.5ml) 5,000 unit Q12 SQ 04/09/16 21:00 05/09/16 20:59 04/13/16 07:39 5,000 UNIT Diphenoxylate HCl/ Atropine (Lomotil Tab) 2 tab Q6H PRN PO 04/11/16 11:30 05/11/16 11:29 Verapamil HCl 180 mg 180 mg QAM PO 04/11/16 09:00 05/11/16 08:59 04/13/16 07:35 180 MG Potassium Chloride/Sodium Chloride (1/2 Nss + 20meq KCl 1000ml) 1,000 ml @ 100 mls/hr Q10H IV 04/10/16 16:15 05/10/16 16:14 04/13/16 14:27 100 MLS/HR Objective Vital Signs Date Time Temp Pulse Resp B/P Pulse Ox O2 Delivery O2 Flow Rate FiO2 04/13/16 16:00 Room Air 04/13/16 15:07 37.0 72 19 151/80 97 Room Air 04/13/16 12:00 Room Air 04/13/16 10:36 36.6 69 20 153/90 96 Room Air 04/13/16 08:00 95 Room Air 04/13/16 08:00 36.8 70 18 142/82 95 Room Air 04/13/16 04:00 37.0 58 20 119/65 96 Room Air 04/13/16 04:00 96 Room Air 04/13/16 00:15 36.9 68 20 157/88 97 Room Air 04/13/16 00:00 93 Room Air 04/12/16 20:00 36.8 69 134/79 96 Room Air 04/12/16 20:00 96 Room Air Physical Exam General Appearance: WD/WN, no apparent distress Eyes: normal inspection, EOMI ENT: normal ENT inspection, hearing grossly normal Neck: supple Respiratory/Chest: chest non-tender, lungs clear, normal breath sounds, no respiratory distress Cardiovascular: regular rate, rhythm, no edema, no gallop, no JVD, no murmur Abdomen: normal bowel sounds, non tender, soft, no organomegaly, no pulsatile mass Extremities: normal range of motion, non-tender, normal inspection, no pedal edema 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, no motor/sensory deficits, alert, normal mood/affect, oriented x 3 Skin: normal color, warm/dry, no rash Laboratory Results Last 24 Hours Test 04/13/16 05:43 White Blood Count 16.81 K/uL Red Blood Count 4.16 M/uL Hemoglobin 13.2 g/dL Hematocrit 37.6 % Mean Corpuscular Volume 90.4 fL Mean Corpuscular Hemoglobin 31.7 pg Mean Corpuscular Hemoglobin Concent 35.1 g/dl Platelet Count 265 K/uL Mean Platelet Volume 9.5 fL Neutrophils (%) (Auto) 74.2 % Lymphocytes (%) (Auto) 13.0 % Monocytes (%) (Auto) 9.1 % Eosinophils (%) (Auto) 1.3 % Basophils (%) (Auto) 0.1 % Neutrophils # (Auto) 12.47 K/uL Lymphocytes # (Auto) 2.19 K/uL Monocytes # (Auto) 1.53 K/uL Eosinophils # (Auto) 0.22 K/uL Basophils # (Auto) 0.02 K/uL RDW Standard Deviation 46.9 fL RDW Coefficient of Variation 14.2 % Immature Granulocyte % (Auto) 2.3 % Immature Granulocyte # (Auto) 0.38 K/uL Sodium Level 144 mmol/L Potassium Level 4.0 mmol/L Chloride Level 114 mmol/L Carbon Dioxide Level 20 mmol/L Anion Gap 10.0 mmol/L Blood Urea Nitrogen 46 mg/dl Creatinine 2.60 mg/dl Est Creatinine Clear Calc Drug Dose 36.9 ml/min Estimated GFR () 28.9 Estimated GFR (Non- 24.9 BUN/Creatinine Ratio 17.7 Random Glucose 109 mg/dl Calcium Level 7.2 mg/dl Phosphorus Level 2.3 mg/dl Magnesium Level 2.0 mg/dl Assessment and Plan CAITLYN/ATN , multifactorial (diarrhea/dehydration/ACEI/HCTZ) -improving, creatinine is 2-3 today -rn mobile consult appreciated (continue hospitalization) -continue supportive care -continue holding ACEI/HCTZ -continue IVFs as per rn mobile Leukocytosis, likely reactive, will follow up nausea/vomiting/diarrhea -improved, possible viral infection heme positive stools -no appearance of significant hemorrhage at this time HTN HOLD Lisinopril/HCTZ 20/12.5 mg daily start verapamil 360 mg continue to follow BP DVT proph: hold chemical anticoagulation with heme + stool, scds CODE STATUS: FULL CODE Dispostion: From home, lives alone. CM to assist. ordered PT/OT
[2016-04-14] VITALS (7 sets, daily range): BP systolic 139–153; BP diastolic 73–91; PULSE 67–78; TEMP 36.6–36.8; O2SAT 95–97
[2016-04-14] MEDS: SODIUM CHLOR 0.45% + 20MEQ KCL 1,000 ML IV SCH (02:20)
[2016-04-14 06:02] LABS: ALB/GLOB RATIO 0.7 (0.9-2); BUN/CREATININE RATIO 14.5 (10-20); CALCIUM 7.1 mg/dl (8.5-10.1); CREATININE 1.9 mg/dl (0.60-1.40); MAGNESIUM 1.7 mg/dl (1.8-2.4); PHOSPHORUS 2.1 mg/dl (2.5-4.9); POTASSIUM 3.9 mmol/L (3.5-5.1)
[2016-04-14 06:17] LABS: HEMATOCRIT 39.5 % (42-52); MEAN CELL VOLUME 93.4 fL (80-100); MEAN CORPUSCULAR HEMOGLOBIN 31.7 pg (25-34); MEAN CORPUSCULAR HGB CONC 33.9 g/dl (32-36); MEAN PLATELET VOLUME 10.2 fL (7.4-10.4); PLATELET COUNT 241 K/uL (130-400); RED BLOOD COUNT 4.23 M/uL (4.7-6.1); WHITE BLOOD COUNT 14.67 K/uL (4.8-10.8)
[2016-04-14 06:18] LABS: BASO % 0.2 %; BASO ABS # 0.03 K/uL (0-0.2); COMPLETE YES; EOS % 1.1 %; IG% 2.9 %; LYMPH % 10.1 %; LYMPH ABS # 1.48 K/uL (1.2-3.4); MONO % 8.7 %; PLT ESTIMATE NORMAL
[2016-04-14] MEDS: PANTOprazole SOD 40 MG TAB PO SCH (07:31)
[2016-04-14] MEDS: METRONIDAZOLE 500 MG TAB PO SCH (07:31)
[2016-04-14] MEDS: VERAPAMIL HCL 180 MG TABCR PO SCH (07:31)
[2016-04-14] MEDS: LACTOBACILLUS ACIDOPHILUS (FLORANEX) TAB PO SCH (07:32)
[2016-04-14] MEDS: HEPARIN SOD 5000 UNIT/0.5 ML CARP SQ SCH (07:36)
--- NOTE | 2016-04-14 09:44 | Nephrology Progress Note ---
Nephrology Progress Note Date of Service Apr 14, 2016. Chief Complaint Follow up evaluation of acute on chronic kidney injury Subjective Mr. Rosado was seen and examined in the PCU this morning. He was admitted to the hospital with diarrhea, dehydration and acute on chronic kidney injury. The patient's baseline creatinine has been 1.4 (01/12). He presented to the hospital w/ SBP ~ 70, dehydration and serum creatinine of 13.0. Mr. Rosado reports that his diarrhea has resolved. He is tolerating a regular diet. His urine output has improved. He is tolerating IV hydration without dyspnea or lower extremity edema. He voices no new medical concerns at this time. The patient has a h/o arterial hypertension. He had been on Lisinopril and HCTZ. These medications have been held. He remains on Verapamil therapy. Chance catheter was removed yesterday. The patient is voiding on his own without difficulty. Review of Systems Constitutional: No fever Cardiovascular: No chest pain Respiratory: No dyspnea at rest Abdomen: No diarrhea, No pain, No vomiting Genitourinary - Male: No gross hematuria Extremities: No leg edema Integumentary: No rash A complete review of systems was performed. Pertinent positives are noted above. All other systems are negative. Vital Signs Last 8 Hrs Date Time Temp Pulse Resp B/P Pulse Ox O2 Delivery O2 Flow Rate FiO2 04/14/16 08:00 97 Room Air 04/14/16 07:53 36.8 70 18 149/91 97 Room Air 04/14/16 04:00 97 Room Air 04/14/16 03:10 36.6 67 18 139/78 97 Room Air I & O 24-Hour Column 04/14/16 08:00 Intake Total 3617 ml Output Total 550 ml Balance 3067 ml Last Recorded Weight Weight (Kilograms): 113.800 Physical Exam General Appearance: no apparent distress Head: normocephalic, atraumatic Eyes: PERRL, EOMI Neck: no adenopathy Respiratory/Chest: lungs clear Cardiovascular: regular rate, rhythm Abdomen/GI: normal bowel sounds, non tender, soft Extremities/Musculoskelatal: no calf tenderness, no pedal edema Neurologic/Psych: alert, oriented x 3 Family History Patient reports no known family medical history. Social History Smokeless Tobacco Use: Yes (current user) Alcohol Use: daily 2-3 beers Drug Use: none Marital Status: single Housing Status: lives alone Occupation: retired Laboratory Results Past 24 Hours 04/14/16 05:05 Red Blood Count 4.23, Mean Corpuscular Volume 93.4, Mean Corpuscular Hemoglobin 31.7, Mean Corpuscular Hemoglobin Concent 33.9, Mean Platelet Volume 10.2, Neutrophils (%) (Auto) 77.0, Lymphocytes (%) (Auto) 10.1, Monocytes (%) (Auto) 8.7, Eosinophils (%) (Auto) 1.1, Basophils (%) (Auto) 0.2, Neutrophils # (Auto) 11.31, Lymphocytes # (Auto) 1.48, Monocytes # (Auto) 1.27, Eosinophils # (Auto) 0.16, Basophils # (Auto) 0.03 04/14/16 05:20 Test 04/14/16 05:05 04/14/16 05:20 White Blood Count 14.67 K/uL (4.8-10.8) Red Blood Count 4.23 M/uL (4.7-6.1) Hemoglobin 13.4 g/dL (14.0-18.0) Hematocrit 39.5 % (42-52) Mean Corpuscular Volume 93.4 fL (80-100) Mean Corpuscular Hemoglobin 31.7 pg (25-34) Mean Corpuscular Hemoglobin Concent 33.9 g/dl (32-36) Platelet Count 241 K/uL (130-400) Mean Platelet Volume 10.2 fL (7.4-10.4) Neutrophils (%) (Auto) 77.0 % Lymphocytes (%) (Auto) 10.1 % Monocytes (%) (Auto) 8.7 % Eosinophils (%) (Auto) 1.1 % Basophils (%) (Auto) 0.2 % Neutrophils # (Auto) 11.31 K/uL (1.4-6.5) Lymphocytes # (Auto) 1.48 K/uL (1.2-3.4) Monocytes # (Auto) 1.27 K/uL (0.11-0.59) Eosinophils # (Auto) 0.16 K/uL (0-0.5) Basophils # (Auto) 0.03 K/uL (0-0.2) RDW Standard Deviation 48.8 fL (36.4-46.3) RDW Coefficient of Variation 14.3 % (11.5-14.5) Immature Granulocyte % (Auto) 2.9 % Immature Granulocyte # (Auto) 0.42 K/uL (0.00-0.02) Platelet Estimate NORMAL Red Blood Cell Morphology Unremarkable Anion Gap 10.0 mmol/L (3-11) Est Creatinine Clear Calc Drug Dose 50.4 ml/min Estimated GFR () 42.2 Estimated GFR (Non- 36.4 BUN/Creatinine Ratio 14.5 (10-20) Calcium Level 7.1 mg/dl (8.5-10.1) Phosphorus Level 2.1 mg/dl (2.5-4.9) Magnesium Level 1.7 mg/dl (1.8-2.4) Total Bilirubin 0.3 mg/dl (0.2-1) Aspartate Amino Transf (AST/SGOT) 22 U/L (15-37) Alanine Aminotransferase (ALT/SGPT) 42 U/L (12-78) Alkaline Phosphatase 62 U/L (45-117) Total Protein 6.2 gm/dl (6.4-8.2) Albumin 2.5 gm/dl (3.4-5.0) Globulin 3.7 gm/dl (2.5-4.0) Albumin/Globulin Ratio 0.7 (0.9-2) Allergies Coded Allergies: No Known Allergies (Unverified , 04/08/16) Medications Current Inpatient Medications Medications (Trade) Dose Ordered Sig/Jose Route Start Time Stop Time Status Last Admin Dose Admin Acetaminophen (Tylenol Tab) 650 mg Q4H PRN PO 04/08/16 14:00 05/08/16 13:59 Ondansetron HCl (Zofran Inj) 4 mg Q6H PRN IV 04/08/16 14:00 05/08/16 13:59 04/11/16 09:53 4 MG Metronidazole (Flagyl Tab) 500 mg BID PO 04/09/16 09:00 04/23/16 08:59 04/14/16 07:31 500 MG Lactobacillus Acidophilus (Floranex Tab) 4 tab QID PO 04/09/16 09:00 05/09/16 08:59 04/14/16 07:32 4 TAB Pantoprazole Sodium (Protonix Tab) 40 mg DAILY PO 04/10/16 09:00 05/10/16 08:59 04/14/16 07:31 40 MG Heparin Sodium (Porcine) (Heparin Sq 5000 Unit/0.5ml) 5,000 unit Q12 SQ 04/09/16 21:00 05/09/16 20:59 04/14/16 07:36 5,000 UNIT Diphenoxylate HCl/ Atropine (Lomotil Tab) 2 tab Q6H PRN PO 04/11/16 11:30 05/11/16 11:29 Verapamil HCl 180 mg 180 mg QAM PO 04/11/16 09:00 05/11/16 08:59 04/14/16 07:31 180 MG Potassium Chloride/Sodium Chloride (1/2 Nss + 20meq KCl 1000ml) 1,000 ml @ 100 mls/hr Q10H IV 04/10/16 16:15 05/10/16 16:14 04/14/16 02:20 100 MLS/HR Impression (1) Chronic kidney disease, stage III (moderate) (2) Hypertension (3) Hypokalemia (4) Metabolic acidosis (5) Acute renal failure Mr. Rosado presented to the ED for evaluation of generalized weakness. He had been suffering from diarrhea and dehydration. He remained on his RADHA inhibitor and diuretic. Upon presentation he was found to have oliguric CAITLYN w/ creatinine 14.0. He was hypotensive w/ SBP in the mid 70's. He was hydrated w / normal saline and started on a bicarbonate gtt. His blood pressure recovered and he has converted to a nonoliguric state. He is now in the recovery phase of ATN. CAITLYN is c/w ATN and prerenal azotemia complicated by RADHA/HCTZ use. Urine microscopy consistent with ATN. Metabolic acidosis attributed to renal failure and diarrhea. Recommendations ACUTE KIDNEY INJURY: -- Markedly improved. Patient is nearing baseline kidney function -- Patient likely suffered ATN due to dehydration in the setting of RADHA inhibitor therapy -- Volume status and electrolyte balance remain acceptable at this time -- Will stop IVF -- Monitor serial PRP -- OK to discharge to home from nephrology perspective. Recommend that patient have a PRP checked within 3 - 4 days of hospital discharge and follow up w/ PCP in one week to assess kidney function, volume status and blood pressure. As outpatient he may require reinstitution of his Lisinopril and HCTZ therapy CHRONIC KIDNEY DISEASE: -- Baseline creatinine has been 1.4 (01/12) HYPERTENSION: -- Blood pressure is mildly elevated -- Continue to hold Lisinopril and HCTZ. These can be restarted by PCP if needed -- Continue Verapamil therapy DIARRHEA: -- Resolved -- Stool for C. Difficile, Salmonella and WBC's was negative
[2016-04-14] MEDS ORDERED: FAMO20TA11 PO (11:18)
[2016-04-14] MEDS ORDERED: MTR500 PO (11:18)
--- NOTE | 2016-04-14 11:20 | Discharge Instructions ---
Discharge Instructions Admission Admission Date: Apr 08, 2016 at 15:08 Admission Diagnosis: Acute Renal Failure. Discharge Care Plan - Problem: Medical Problems: (1) Leukocytosis (2) Renal failure Care Plan - Goal(s): Decrease discomfort Care Plan - Instructions: Recommended Home Diet: 1800 Bean Wt Reduction, AHA Phase I (2gmNa/LoCho) Provider Instructions: drink 8 cups of water every day each cup is 8 Oz VTE Core Measure Inpt VTE Proph given/why not?: Unfractionated heparin SQ, SCD's Follow Up Follow-Up: follow up with primary care physician in one week need to check renal function test and adjust blood pressure medications need sleep study for possible sleep apnea Flores Zamudio Recommendations: Call your doctor if: * Temperature above 101 degrees * Pain not relieved by pain medicine ordered * There is increased drainage or redness from any incision * You have any unanswered questions or concerns. Your Doctors Instructions noted above were prepared by provider Viktro Lee.
--- NOTE | 2016-04-14 12:09 | Discharge Summary ---
Discharge Summary Admission Date: Apr 08, 2016 at 15:08 Discharge Disposition: Home Immunizations: Have You Had Influenza Vaccine: No History of Tetanus Vaccine?: Yes History of Pneumococcal: No History of Hepatitis B Vaccine: Yes Medication Reconciliation New Medications: Famotidine (Pepcid) 20 Mg Tab 20 MG PO DAILY for 15 Days, #15 TAB Metronidazole (Metronidazole) 500 Mg Tab 500 MG PO BID for 3 Days, #6 TAB Continued Medications: Verapamil Hcl (Verapamil Hcl Sr) 360 Mg Cap 360 MG PO DAILY Discontinued Medications: Lisinopril/Hctz (Zestoretic 20MG/12.5MG) Tab 1 TAB PO BID Discharge Exam Review of Systems: Constitutional: No chills, No fatigue, No fever, No problem reported, No sweats, No weakness, No weight loss Eyes: No diplopia, No discharge, No eye pain, No problem reported, No redness, No worsening of vision ENT: No dental problems, No hearing loss, No nasal symptoms, No problem reported, No sore throat, No tinnitus, No trouble swallowing, No unusual epistaxis Respiratory: No cough, No dyspnea at rest, No dyspnea on exertion, No hemoptysis, No problem reported, No shortness of breath, No sputum, No wheezing Cardiovascular: No PND, No chest pain, No claudication, No edema, No orthopnea, No palpitations, No problem reported Abdomen: No GI bleeding, No constipation, No diarrhea, No nausea, No pain, No problem reported, No vomiting Musculoskeletal: No calf pain, No joint pain, No muscle pain, No problem reported, No swelling Genitourinary - Female: No dysmenorrhea, No dysuria, No hematuria, No menorrhagia, No metrorrhagia, No , No problem reported, No rash, No urinary frequency, No urinary incontinence, No urinary retention, No urinary urgency, No vaginal bleeding, No vaginal discharge, No vaginal itching, No vulvodynia Genitourinary - Male: No dysuria, No hematuria, No impotence, No lesions, No penile discharge, No problem reported, No urinary frequency, No urinary hesitancy, No urinary incontinence, No urinary retention, No urinary urgency Neurologic: No balance problems, No memory loss, No numbness/tingling, No paralysis, No problem reported, No vertigo, No weakness Psychiatric: No anhedonism, No anxiety, No depression symptoms, No insomnia , No problem reported, No substance abuse Endocrine: No excessive thirst, No excessive urination, No fatigue, No problem reported Hematologic / Lymphatic: No abnormal bleeding/bruising, No clotting problems , No night sweats, No problem reported, No swollen lymph nodes Integumentary: No bleeding, No color change, No itch, No new/changing skin lesions, No problem reported, No rash Physical Exam: General Appearance: WD/WN, no apparent distress Eyes: normal inspection, EOMI ENT: normal ENT inspection, hearing grossly normal, TMs normal, pharynx normal Neck: supple Respiratory/Chest: chest non-tender, lungs clear, normal breath sounds, no respiratory distress, no accessory muscle use Cardiovascular: regular rate, rhythm, no edema, no gallop, no JVD Abdomen / GI: normal bowel sounds, non tender, soft, no organomegaly, no pulsatile mass Extremities: normal inspection, no calf tenderness, normal capillary refill , no pedal edema Neurologic/Psychiatric: approver II-XII nml as tested, no motor/sensory deficits , alert, normal mood/affect, normal reflexes, oriented x 3 Skin: normal color, warm/dry, no rash Hospital Course This is a 65 yo M with PMHx HTN p/w 1 week of having gastritis/diarrhea/ vomiting. The patient has been taking medications lisinopril/hctz 20/12.5 mg and Verapamil hcl 260 mg daily. developed dizziness and when he came he was found to have the following problems: CAITLYN/ATN, creatinine was > 10 , multifactorial (diarrhea/dehydration/ACEI/HCTZ) -radiologic technologist mammogram consult appreciated -started on generous IVFs as per radiologic technologist mammogram -held ACEI/HCTZ, can be restarted in the future -improving, creatinine is 1.9 today, so cleared for discharge by radiologic technologist mammogram Leukocytosis, likely reactive nausea/vomiting/diarrhea -improved, possible viral infection -he was started on flagyl and will continue 3 more days after discharge today heme positive stools -no appearance of significant hemorrhage at this time, if repeat stool test showed heme positive , he can follow up with GI as an out patient HTN HOLD Lisinopril/HCTZ 20/12.5 mg daily , can be restarted in 2-3 weeks continued verapamil 180 mg he will follow up with his PCP and have a renal function test in one week Total Time Spent: Greater than 30 minutes This includes examination of the patient, discharge planning, medication reconciliation, and communication with other providers. Discharge Instructions Please refer to the electronic Patient Visit Report (Discharge Instructions) for additional information.
== END 2016-04-14 14:00 | disposition home or self-care (01) | DRG 682 ==
LOC: ENRESERVDT → ENRESERVTM → C.EDB 10:49 → EDBD 10:49 → C.MSICU 15:08 → C.2T 04-10 18:13
PROVIDERS: ADMIT Hospitalist; ATTEND Internal Medicine
DX: N17.0 Acute kidney failure with tubular necrosis (principal); G93.41 Metabolic encephalopathy; E87.2 Acidosis; R65.10 Systemic inflammatory response syndrome (SIRS) of non-infectious origin without acute organ dysfunction; E86.0 Dehydration; E66.9 Obesity, unspecified; Z68.35 Body mass index [BMI] 35.0-35.9, adult; E87.6 Hypokalemia; G47.33 Obstructive sleep apnea (adult) (pediatric); I12.9 Hypertensive chronic kidney disease with stage 1 through stage 4 chronic kidney disease, or unspecified chronic kidney disease; N18.3 Chronic kidney disease, stage 3 (moderate); E83.39 Other disorders of phosphorus metabolism; Z90.49 Acquired absence of other specified parts of digestive tract; Z79.899 Other long term (current) drug therapy; N28.1 Cyst of kidney, acquired; K76.0 Fatty (change of) liver, not elsewhere classified; R19.5 Other fecal abnormalities; A08.4 Viral intestinal infection, unspecified; F17.220 Nicotine dependence, chewing tobacco, uncomplicated

== ENCOUNTER 2021-01-23 06:09 | Inpatient (IN) ==
[2021-01-23] MEDS ORDERED: MoRPHine SULFATE 4 MG/ML 1 ML CARP\\VIAL IV STA (06:59)
[2021-01-23] MEDS ORDERED: ONDANSETRON INJ 2 MG/ML 2 ML VIAL IV STA (06:59)
--- NOTE | 2021-01-23 07:02 | Emergency Department Note ---
Impression & Plan Back pain, Strain of lumbar region, Leg weakness, Leukocytosis, Ambulatory dysfunction ED Provider Note NAME: SANJANA DASILVA AGE: 70 SEX: M : 1950 ARRIVES VIA: Walk-In INFORMANT: Patient ED PROVIDER(S): Con Lay DO CHIEF COMPLAINT: Back pain HPI: Patient is a 70-year-old male who presents to the ER for chronic back pain which worsened recently. He has had back pain all of his life in the same location. He notes it is sharp and stabbing. Occurred over a week ago. He believes it may be related as he was out of the [employer] for 5 to 6 days turkey hunting for about 5 hours a day. Started right after his last day of doing this. He denies any focal weakness or numbness in the legs. He admits he is weak in the legs arms and back and throughout his entire body. No headache or change in vision. No cough or runny nose. No chest pain or shortness of breath. No nausea, vomiting, or diarrhea. No numbness in the groin. He is able to urinate and move his bowels. Denies any fevers or recent trauma. Does have previous back surgery. He was seen and evaluated in outside facility and given a Medrol Dosepak as well as some [place]. Pain is a 7 out of 10 currently. Is worse with movement. He has changed positions regularly to get comfortable in the bed. He did not take any of his 3 blood pressure medications this morning. He has trouble walking at this point. ROS: See above HPI for pertinent positives & negatives. A total of 10 systems reviewed and were otherwise negative. PAST MEDICAL HISTORY:See Below PAST SURGICAL HISTORY:See Below FAMILY HISTORY:See Below SOCIAL HISTORY:See Below HOME MEDICATIONS:See Below ALLERGIES:See Below VITALS:See Below PHYSICAL EXAMINATION: GENERAL: Sitting up in bed, alert, well appearing, well nourished, no distress, non-toxic EYE EXAM: normal conjunctiva. OROPHARYNX: no exudate, no erythema, lips, buccal mucosa, and tongue normal and mucous membranes are moist NECK: supple, no nuchal rigidity, no adenopathy, non-tender LUNGS: Clear to auscultation. Normal chest wall mechanics HEART: no murmurs, S1 normal and S2 normal ABDOMEN: abdomen soft, non-tender, normo-active bowel sounds, no masses, no rebound or guarding. UPPER EXTREMITIES: upper extremities are grossly normal. LOWER EXTREMITIES: Flexion and extension of the hips, knees, ankles, and EHL 5/5 bilaterally. Gross sensation is intact. DPs are 2/4 bilateral. Pitting edema to bilateral lower extremities NEURO EXAM: Normal sensorium, cranial nerves II-XII grossly intact, normal speech, no gross weakness of arms, no gross weakness of legs. MEDICAL DECISION MAKING: Patient is a 70-year-old male who presents ER for back pain and significant weakness just diffusely over the past 48 hours. He is neurologically intact. IV was established blood was obtained. Labs show leukocytosis 20,000. No significant anemia. BMP with LFTs bilirubin and lipase is unremarkable. UA was clean. Covid was negative. CT of the abdomen pelvis and lumbar spine showed a disc bulge but no focal pathology. Do favor the leukocytosis likely secondary to steroids that he started within the past 48 hours. He has no other respiratory symptoms. Attempted to ambulate to the bathroom and he needed near full support. While laying down he has no focal deficit. Significant weakness throughout with ambulation. He does live at home alone. Did order an MRI after protracted conversation at bedside and multiple doses of narcotics. He was discussed with hospitalist for further evaluation. Triage Nursing notes reviewed. Limited review of prior medical records performed Vital Signs: reviewed and remarkable for HTN Differential diagnosis: Differential diagnoses includes but is not limited to lumbar radiculopathy, kidney stone, muscle strain, facture, cauda equina, mass, and disc herniation. ER treatment provided: See below Diagnostics interpreted by me: ECG: none Cardiac Monitoring: An order was placed for continuous cardiac monitoring. The monitor shows a rate of 62 with sinus rhythm. Laboratory studies: As stated above and show below. Imaging studies: CT abdomen pelvis showed no acute pathology CT lumbar spine shows disc bulge Consultation(s): Discussed with Camille Glasgow for further evaluation Procedures: none Critical Care: None Past Med/Surg History Medical History (Updated 01/23/21 @ 12:58 by Con Lay DO) Chronic lower back pain History of smoking Hypertension Surgical History (Updated 01/23/21 @ 11:39 by Camille Glasgow MD) History of back surgery Social History Smoking Status: Never smoker Feels Safe at Home: Yes Allergies Allergies Allergy/AdvReac Type Severity Reaction Status Date / Time No Known Allergies Allergy Unverified 01/23/21 08:31 Home Meds Home Medications Medication Instructions Recorded Confirmed furosemide 20 mg tablet 20 mg PO DAILY PRN 01/23/21 01/23/21 hydrocodone 5 mg-acetaminophen 325 1 tab PO TID PRN 01/23/21 01/23/21 mg tablet lisinopril 20 mg tablet 20 mg PO BID 01/23/21 01/23/21 methylprednisolone 4 mg tablets in 4 mg PO UD 01/23/21 01/23/21 a dose pack metoprolol succinate 25 mg 25 mg PO DAILY 01/23/21 01/23/21 tablet,extended release 24 hr potassium chloride 10 mEq 10 meq PO DAILY PRN 01/23/21 01/23/21 tablet,extended release verapamil 180 mg tablet,extended 180 mg PO BID 01/23/21 01/23/21 release Results & Data (ED) Vital Signs Vital Signs - 24 hr 01/23/21 06:12 01/23/21 06:35 01/23/21 07:31 Temperature 36.9 C Temperature Source Temporal Artery Scan Pulse Rate 61 Pulse Rate [Apical] Pulse Rhythm [Apical] Respiratory Rate 16 20 Respiratory Effort / Characteristics Non-Labored Spontaneous Respiratory Depth Normal Respiratory Pattern Blood Pressure 206/85 H Blood Pressure [Right Arm] Blood Pressure Mean 125 Blood Pressure Mean [Right Arm] Blood Pressure Position Sitting Pulse Oximetry 96 97 96 Oxygen Delivery Method Room Air Room Air Room Air Sepsis Recent Fever Within 48 Hours No Sepsis New/Unexplained Change in Mental Status N/A Sepsis Action Taken by Nursing No Action Required 01/23/21 07:42 01/23/21 09:00 01/23/21 11:00 Temperature Temperature Source Pulse Rate Pulse Rate [Apical] 62 58 L 65 Pulse Rhythm [Apical] Regular Respiratory Rate 20 20 19 Respiratory Effort / Characteristics Non-Labored Spontaneous Non-Labored Non-Labored Respiratory Depth Normal Normal Respiratory Pattern Regular Blood Pressure Blood Pressure [Right Arm] 167/109 H 190/93 H 177/121 H Blood Pressure Mean Blood Pressure Mean [Right Arm] 128 125 139 Blood Pressure Position Pulse Oximetry 96 97 94 Oxygen Delivery Method Room Air Room Air Room Air Sepsis Recent Fever Within 48 Hours Sepsis New/Unexplained Change in Mental Status Sepsis Action Taken by Nursing Laboratory Data Result diagrams: 01/23/21 07:27 11/27/21 07:27 Lab Results 01/23/21 01/23/21 01/23/21 Range/Units 07:27 07:27 09:40 WBC 20.96 H (4.8-10.8) K/uL RBC 4.63 L (4.7-6.1) M/uL Hgb 14.3 (14.0-18.0) g/dL Hct 42.6 (42-52) % MCV 92.0 (80-100) fL MCH 30.9 (25-34) pg MCHC 33.6 (32-36) g/dL RDW Std Deviation 45.1 (36.4-46.3) fL RDW Coeff of Khushboo 13.4 (11.5-14.5) % Plt Count 303 (130-400) K/uL MPV 10.4 (7.4-10.4) fL Immature Gran % (Auto) 0.6 % Neut % (Auto) 82.5 % Lymph % (Auto) 8.2 % [place] % (Auto) 8.7 % Eos % (Auto) 0.0 % Baso % (Auto) 0.0 % Neut # (Auto) 17.28 H (1.4-6.5) K/uL Lymph # (Auto) 1.71 (1.2-3.4) K/uL [place] # (Auto) 1.83 H (0.11-0.59) K/uL Eos # (Auto) 0.01 (0-0.5) K/uL Baso # (Auto) 0.01 (0-0.2) K/uL Immature Gran # (Auto) 0.12 H (0.00-0.02) K/uL Sodium 138 (136-145) mmol/L Potassium (3.5-5.1) mmol/L Chloride 107 (98-107) mmol/L Carbon Dioxide 23 (21-32) mmol/L Anion Gap 9.0 (3-11) BUN 22 H (7-18) mg/dl Creatinine 0.96 (0.6-1.4) mg/dl Est Cr Clr Drug Dosing 91.3 ml/min Est GFR ( Amer) 93.1 ml/min Est GFR (Non-Af Amer) 80.3 ml/min BUN/Creatinine Ratio 23.0 H (10-20) Glucose 100 H (70-99) mg/dl Calcium 8.9 (8.5-10.1) mg/dl Total Bilirubin 0.4 (0.2-1) mg/dl AST (15-37) U/L ALT 21 (12-78) U/L Alkaline Phosphatase 75 (45-117) U/L Total Protein 8.8 H (6.4-8.2) gm/dl Albumin 3.6 (3.4-5.0) gm/dl Globulin 5.2 H (2.5-4.0) gm/dl Albumin/Globulin Ratio 0.7 L (0.9-2) Lipase 150 (73-393) U/L Urine Color Yellow Urine Appearance Clear (Clear) Urine pH 5.0 (4.5-7.5) Ur Specific [place] 1.030 (1.000-1.030) Urine Protein Trace H (Negative) Urine Glucose (UA) Negative (Negative) Urine Ketones Negative (Negative) Urine Blood 1+ H (Negative) Urine Nitrite Negative (Negative) Urine Bilirubin Negative (Negative) Urine Urobilinogen Negative (Negative) Ur Leukocyte Esterase Negative (Negative) Urine WBC (Auto) 1-5 (0-5) /hpf Urine RBC (Auto) 0-4 (0-4) /hpf U Hyaline Cast (Auto) 1-5 (0-5) /lpf U Epithel Cells (Auto) 5-10 H (0-5) /lpf Urine Bacteria (Auto) Negative (Negative) SARS-CoV-2, RNA, NAAT (NEGATIVE) 01/23/21 Range/Units 11:02 WBC (4.8-10.8) K/uL RBC (4.7-6.1) M/uL Hgb (14.0-18.0) g/dL Hct (42-52) % MCV (80-100) fL MCH (25-34) pg MCHC (32-36) g/dL RDW Std Deviation (36.4-46.3) fL RDW Coeff of Khushboo (11.5-14.5) % Plt Count (130-400) K/uL MPV (7.4-10.4) fL Immature Gran % (Auto) % Neut % (Auto) % Lymph % (Auto) % [place] % (Auto) % Eos % (Auto) % Baso % (Auto) % Neut # (Auto) (1.4-6.5) K/uL Lymph # (Auto) (1.2-3.4) K/uL [place] # (Auto) (0.11-0.59) K/uL Eos # (Auto) (0-0.5) K/uL Baso # (Auto) (0-0.2) K/uL Immature Gran # (Auto) (0.00-0.02) K/uL Sodium (136-145) mmol/L Potassium (3.5-5.1) mmol/L Chloride (98-107) mmol/L Carbon Dioxide (21-32) mmol/L Anion Gap (3-11) BUN (7-18) mg/dl Creatinine (0.6-1.4) mg/dl Est Cr Clr Drug Dosing ml/min Est GFR ( Amer) ml/min Est GFR (Non-Af Amer) ml/min BUN/Creatinine Ratio (10-20) Glucose (70-99) mg/dl Calcium (8.5-10.1) mg/dl Total Bilirubin (0.2-1) mg/dl AST (15-37) U/L ALT (12-78) U/L Alkaline Phosphatase (45-117) U/L Total Protein (6.4-8.2) gm/dl Albumin (3.4-5.0) gm/dl Globulin (2.5-4.0) gm/dl Albumin/Globulin Ratio (0.9-2) Lipase (73-393) U/L Urine Color Urine Appearance (Clear) Urine pH (4.5-7.5) Ur Specific [place] (1.000-1.030) Urine Protein (Negative) Urine Glucose (UA) (Negative) Urine Ketones (Negative) Urine Blood (Negative) Urine Nitrite (Negative) Urine Bilirubin (Negative) Urine Urobilinogen (Negative) Ur Leukocyte Esterase (Negative) Urine WBC (Auto) (0-5) /hpf Urine RBC (Auto) (0-4) /hpf U Hyaline Cast (Auto) (0-5) /lpf U Epithel Cells (Auto) (0-5) /lpf Urine Bacteria (Auto) (Negative) SARS-CoV-2, RNA, NAAT NEGATIVE (NEGATIVE) Administered Medications Discontinued Medications Morphine Sulfate (Morphine Sulfate 4 Mg/Ml 1 Ml Carp\Vial) 4 mg IV NOW STA Stop: 01/23/21 07:00 Last Admin: 01/23/21 07:37 Dose: 4 mg Documented by: [id number] Morphine Sulfate (Morphine Sulfate 10 Mg/Ml Carp/Vial) 6 mg IV NOW STA Stop: 01/23/21 11:07 Last Admin: 01/23/21 11:34 Dose: 6 mg Documented by: [id number] Ondansetron HCl (Ondansetron Inj 2 Mg/Ml 2 Ml Vial) 4 mg IV NOW STA Stop: 01/23/21 07:00 Last Admin: 01/23/21 07:37 Dose: 4 mg Documented by: [id number] Imaging Data Radiologist's Impression: Abdomen/Pelvis CT 01/23/21 06:59 CT SCAN OF THE ABDOMEN AND PELVIS WITHOUT IV CONTRAST; CT SCAN OF THE LUMBAR SPINE WITHOUT IV CONTRAST CLINICAL HISTORY: Generalized weakness. Low back pain. COMPARISON STUDY: Abdominal CT dated 04/08/2016. TECHNIQUE: CT scan of the abdomen and pelvis is performed from the lung bases to the proximal femora. Additionally, CT scan of the lumbar spine is performed from the lower thoracic spine to sacrum. Images for both examinations are reviewed in the axial, sagittal, and coronal planes. IV contrast was not administered for this examination. A dose lowering technique was utilized adhering to the principles of ALARA. CT DOSE: 1230.40 mGycm FINDINGS: Lung bases: The heart is normal in size and without pericardial effusion. There are coronary artery calcifications. There is no airspace consolidation or pleural effusion. Scarring/atelectasis is present at both lung bases. Peribronchial thickening is seen in the lower lobes with mucous plugging at the right lung base. There is a tiny hiatal hernia. Liver: The unenhanced liver is normal in size, contour, and attenuation. There is no intrahepatic biliary ductal dilatation. Gallbladder: Unremarkable. Spleen: Normal in size and attenuation. Pancreas: The unenhanced pancreas is grossly unremarkable. Adrenal glands: Small bilateral adrenal nodules measuring up to 1.[address] criteria for fat-containing adenomas. Kidneys: The unenhanced kidneys are normal in size and without hydronephrosis. There are no renal calculi identified. There are numerous bilateral simple and complex/hyperdense renal cyst which measure up to 3.3 cm. Abdominal vasculature: The abdominal aorta is normal in course and caliber noting moderate atherosclerotic calcification. Bowel: There is moderate colonic diverticulosis without CT evidence of acute diverticulitis. No bowel obstruction is seen. Moderate fecal retention is present throughout the colon. The appendix is well-visualized and normal. Peritoneum: There is no intraperitoneal free air or abdominal ascites. There is a small fat-containing umbilical hernia. Lymphadenopathy: None. Pelvic viscera: The prostate gland is enlarged and heterogeneous noting median lobe hypertrophy. The bladder is decompressed. The wall appears thickened/trabeculated suggesting chronic outlet obstruction. Skeletal structures: Supraclavicular dedicated discussion of the lumbar spine. The bony pelvis and proximal femora are maintained. No lytic or blastic lesions are seen. LUMBAR SPINE: Vertebral body height and alignment are maintained throughout the lumbar spine. There is no evidence of fracture or malalignment. Anterior and lateral marginal osteophytes are seen throughout. The transverse and spinous processes are intact. A Schmorl's node is seen in the superior endplate of L1. There is no evidence of spondylolysis. There is mild multilevel degenerative disc space narrowing and multilevel vacuum phenomenon. There is a large posterior disc bulge eccentric to the right at L4-L5. Mild disc bulges are seen at L2-L3, L3-L4, and L5-S1. The paraspinous soft tissues are within normal limits. IMPRESSION: 1. There are no acute infectious or inflammatory findings in the abdomen or pelvis. 2. Moderate constipation. 3. Moderate colonic diverticulosis without CT evidence of acute diverticulitis. 4. No acute bony abnormality is seen involving the lumbar spine. 5. There is a large posterior disc bulge eccentric to the right L4-L5 as above. This is similar to the 2017 examination. ACT 112: Negative or not required by law. Electronically signed by: Nick Laura M.D. 01/23/2021 8:[address] 01/23/21 06:59 CT SCAN OF THE ABDOMEN AND PELVIS WITHOUT IV CONTRAST; CT SCAN OF THE LUMBAR SPINE WITHOUT IV CONTRAST CLINICAL HISTORY: Generalized weakness. Low back pain. COMPARISON STUDY: Abdominal CT dated 04/08/2016. TECHNIQUE: CT scan of the abdomen and pelvis is performed from the lung bases to the proximal femora. Additionally, CT scan of the lumbar spine is performed from the lower thoracic spine to sacrum. Images for both examinations are reviewed in the axial, sagittal, and coronal planes. IV contrast was not administered for this examination. A dose lowering technique was utilized adhering to the principles of ALARA. CT DOSE: 1230.40 mGycm FINDINGS: Lung bases: The heart is normal in size and without pericardial effusion. There are coronary artery calcifications. There is no airspace consolidation or pleural effusion. Scarring/atelectasis is present at both lung bases. Peribronchial thickening is seen in the lower lobes with mucous plugging at the right lung base. There is a tiny hiatal hernia. Liver: The unenhanced liver is normal in size, contour, and attenuation. There is no intrahepatic biliary ductal dilatation. Gallbladder: Unremarkable. Spleen: Normal in size and attenuation. Pancreas: The unenhanced pancreas is grossly unremarkable. Adrenal glands: Small bilateral adrenal nodules measuring up to 1.[address] criteria for fat-containing adenomas. Kidneys: The unenhanced kidneys are normal in size and without hydronephrosis. There are no renal calculi identified. There are numerous bilateral simple and complex/hyperdense renal cyst which measure up to 3.3 cm. Abdominal vasculature: The abdominal aorta is normal in course and caliber n oting moderate atherosclerotic calcification. Bowel: There is moderate colonic diverticulosis without CT evidence of acute diverticulitis. No bowel obstruction is seen. Moderate fecal retention is present throughout the colon. The appendix is well-visualized and normal. Peritoneum: There is no intraperitoneal free air or abdominal ascites. There is a small fat-containing umbilical hernia. Lymphadenopathy: None. Pelvic viscera: The prostate gland is enlarged and heterogeneous noting median l obe hypertrophy. The bladder is decompressed. The wall appears thickened/trabeculated suggesting chronic outlet obstruction. Skeletal structures: Supraclavicular dedicated discussion of the lumbar spine. The bony pelvis and proximal femora are maintained. No lytic or blastic lesions are seen. LUMBAR SPINE: Vertebral body height and alignment are maintained throughout the lumbar spine. There is no evidence of fracture or malalignment. Anterior and lateral marginal osteophytes are seen throughout. The transverse and spinous processes are intact. A Schmorl's node is seen in the superior endplate of L1. There is no evidence of spondylolysis. There is mild multilevel degenerative disc space narrowing and multilevel vacuum phenomenon. There is a large posterior disc bulge eccentric to the right at L4-L5. Mild disc bulges are seen at L2-L3, L3-L4, and L5-S1. The paraspinous soft tissues are within normal limits. IMPRESSION: 1. There are no acute infectious or inflammatory findings in the abdomen or pelvis. 2. Moderate constipation. 3. Moderate colonic diverticulosis without CT evidence of acute diverticulitis. 4. No acute bony abnormality is seen involving the lumbar spine. 5. There is a large posterior disc bulge eccentric to the right L4-L5 as above. This is similar to the 2017 examination. ACT 112: Negative or not required by law. Electronically signed by: Nick Laura M.D. 01/23/2021 8:41 AM Orbit X-Ray 01/23/21 11:07 BONY ORBITS 3 VIEWS CLINICAL HISTORY: MRI clearance. FINDINGS: 3 views of the bony orbits are obtained. No prior studies are available for comparison at the time of dictation. There is no radiodense/metallic foreign body seen in the region of the bony orbits. The bony orbits are intact as imaged. The visualized paranasal sinuses and the mastoid air cells appear clear. The imaged calvarium appears intact. IMPRESSION: There is no radiodense/metallic foreign body seen in the region of the bony orbits. ACT 112: Negative or not required by law. Electronically signed by: Nick Laura M.D. 01/23/2021 11:46 AM Discharge Plan Visit Data Chief Complaint: Back Injury/Pain Stated Complaint: BACK PAIN ED Provider: Con Lay Discharge Problem: Back pain, Strain of lumbar region, Leg weakness, Leukocytosis, Ambulatory dysfunction Forms Stand Alone Forms: [facility] Prescriptions Prescriptions: No Action hydrocodone-acetaminophen 5-325 mg tablet 1 tab PO TID PRN (Reason: Pain) RF: 0 lisinopril 20 mg tablet 20 mg PO BID RF: 0 verapamil 180 mg tablet extended release 180 mg PO BID RF: 0 potassium chloride 10 mEq tablet extended release 10 meq PO DAILY PRN (Reason: Fluid Retention) RF: 0 furosemide 20 mg tablet 20 mg PO DAILY PRN (Reason: Fluid Retention) RF: 0 metoprolol succinate 25 mg tablet extended release 24 hr 25 mg PO DAILY RF: 0 methylprednisolone 4 mg tablets,dose pack 4 mg PO UD RF: 0 Referrals Referrals: Guy,Guy [Non-Staff] - Discharge Problem: Back pain Qualifiers: Back pain location: low back pain Chronicity: unspecified Back pain laterality: unspecified Sciatica presence: unspecified whether sciatica present Qualified Code(s): M54.50 - Low back pain, unspecified Strain of lumbar region Qualifiers: Encounter type: initial encounter Qualified Code(s): S39.012A - Strain of muscle, fascia and tendon of lower back, initial encounter Leg weakness Qualifiers: Laterality: unspecified laterality Qualified Code(s): R29.898 - Other symptoms and signs involving the musculoskeletal system Leukocytosis Qualifiers: Leukocytosis type: unspecified Qualified Code(s): D72.829 - Elevated white blood cell count, unspecified
[2021-01-23 07:40] LABS: Basophils # (auto) 0.01 K/uL (0-0.2); Eosinophils # (auto) 0.01 K/uL (0-0.5); Hematocrit (blood only) 42.6 % (42-52); Hemoglobin 14.3 g/dL (14.0-18.0); Immature Granulocytes # (auto) 0.12 K/uL (0.00-0.02); Immature Granulocytes % (auto) 0.6 %; Lymphocytes # (auto) 1.71 K/uL (1.2-3.4); Lymphocytes % (auto) 8.2 %; Mean Corpuscular Hemoglobin 30.9 pg (25-34); Mean Corpuscular Hgb Conc 33.6 g/dL (32-36); Mean Platelet Volume 10.4 fL (7.4-10.4); Monocytes # (auto) 1.83 K/uL (0.11-0.59); Monocytes % (auto) 8.7 %; Neutrophils # (auto) 17.28 K/uL (1.4-6.5); Neutrophils % (auto) 82.5 %; Platelet Count 303 K/uL (130-400); RDW Coefficient of Variation 13.4 % (11.5-14.5); RDW Standard Deviation 45.1 fL (36.4-46.3); Red Blood Count 4.63 M/uL (4.7-6.1); White Blood Count 20.96 K/uL (4.8-10.8)
[2021-01-23 08:05] LABS: Albumin Globulin Ratio 0.7 (0.9-2); Albumin Level 3.6 gm/dl (3.4-5.0); Bilirubin,Total 0.4 mg/dl (0.2-1); Calcium 8.9 mg/dl (8.5-10.1); Creatinine Clr Calc Pharmacy 91.3 ml/min; Est GFR (African American) 93.1 ml/min; Est GFR (Non-African American) 80.3 ml/min; Globulin 5.2 gm/dl (2.5-4.0); Total Protein 8.8 gm/dl (6.4-8.2)
--- NOTE | 2021-01-23 08:42 | CT Scan Report ---
CT SCAN OF THE ABDOMEN AND PELVIS WITHOUT IV CONTRAST; CT SCAN OF THE LUMBAR SPINE WITHOUT IV CONTRAS T CLINICAL HISTORY: Generalized weakness. Low back pain. COMPARISON STUDY: Abdominal CT dated 04/08/2016. TECHNIQUE: CT scan of the abdomen and pelvis is performed from the lung bases to the proximal femora. Additionally, CT scan of the lumbar spine is performed from the lower thoracic spine to sacrum. Imag es for both examinations are reviewed in the axial, sagittal, and coronal planes. IV contrast was not administered for this examination. A dose lowering technique was utilized adhering to the principles of ALARA. CT DOSE: 1230.40 mGycm FINDINGS: Lung bases: The heart is normal in size and without pericardial effusion. There are coronary artery c alcifications. There is no airspace consolidation or pleural effusion. Scarring/atelectasis is presen t at both lung bases. Peribronchial thickening is seen in the lower lobes with mucous plugging at the right lung base. There is a tiny hiatal hernia. Liver: The unenhanced liver is normal in size, contour, and attenuation. There is no intrahepatic jolly iary ductal dilatation. Gallbladder: Unremarkable. Spleen: Normal in size and attenuation. Pancreas: The unenhanced pancreas is grossly unremarkable. Adrenal glands: Small bilateral adrenal nodules measuring up to 1.[address] criteria for fat-conta ining adenomas. Kidneys: The unenhanced kidneys are normal in size and without hydronephrosis. There are no renal luciano culi identified. There are numerous bilateral simple and complex/hyperdense renal cyst which measure up to 3.3 cm. Abdominal vasculature: The abdominal aorta is normal in course and caliber noting moderate atheroscle rotic calcification. Bowel: There is moderate colonic diverticulosis without CT evidence of acute diverticulitis. No bowel obstruction is seen. Moderate fecal retention is present throughout the colon. The appendix is well -visualized and normal. Peritoneum: There is no intraperitoneal free air or abdominal ascites. There is a small fat-containin g umbilical hernia. Lymphadenopathy: None. Pelvic viscera: The prostate gland is enlarged and heterogeneous noting median lobe hypertrophy. The bladder is decompressed. The wall appears thickened/trabeculated suggesting chronic outlet obstructio n. Skeletal structures: Supraclavicular dedicated discussion of the lumbar spine. The bony pelvis and pr oximal femora are maintained. No lytic or blastic lesions are seen. LUMBAR SPINE: Vertebral body height and alignment are maintained throughout the lumbar spine. There i s no evidence of fracture or malalignment. Anterior and lateral marginal osteophytes are seen through out. The transverse and spinous processes are intact. A Schmorl's node is seen in the superior endpla te of L1. There is no evidence of spondylolysis. There is mild multilevel degenerative disc space papito rowing and multilevel vacuum phenomenon. There is a large posterior disc bulge eccentric to the right at L4-L5. Mild disc bulges are seen at L2-L3, L3-L4, and L5-S1. The paraspinous soft tissues are wit hin normal limits. IMPRESSION: 1. There are no acute infectious or inflammatory findings in the abdomen or pelvis. 2. Moderate constipation. 3. Moderate colonic diverticulosis without CT evidence of acute diverticulitis. 4. No acute bony abnormality is seen involving the lumbar spine. 5. There is a large posterior disc bulge eccentric to the right L4-L5 as above. This is similar to 2016 examination. ACT 112: Negative or not required by law. Electronically signed by: Nick Laura M.D. 01/23/2021 8:41 AM
[2021-01-23 10:02] LABS: Appearance Urine Clear (Clear); Bacteria Urine Automated Negative (Negative); Bilirubin Urine Negative (Negative); Blood Urine 1+ (Negative); Color Urine Yellow; Glucose Urine UA Negative (Negative); Ketones Urine Negative (Negative); Leukocyte Esterase Urine Negative (Negative); Nitrite Urine Negative (Negative); Protein Urine Trace (Negative); RBC Urine Automated 0-4 /hpf (0-4); Urobilinogen Urine Negative (Negative)
[2021-01-23] MEDS ORDERED: MoRPHine SULFATE 10 MG/ML CARP/VIAL IV STA (11:06)
--- NOTE | 2021-01-23 11:40 | History & Physical Report ---
Date of Service January 23, 2021 Assessment & Plan (1) Lumbar disc herniation: Plan: Patient presents with worsening lower back pain with developing right lower extremity focal weakness as well as bilateral sensory deficit in the feet, no bowel or bladder symptoms, do not suspect cauda equina syndrome With intractable lower back pain now improved with IV morphine in the ER CT lumbar spine shows large right L4-L5 disc herniation eccentric to the right, unchanged from 2017 He certainly has evidence of radiculopathy with focal weakness in right lower extremity as well as sensory deficits in the bilateral L4-L5 distribution -Bring in on observation for pain control and treatment with IV corticosteroids- start dexamethasone 8 mg IV once daily -Discussed his care with orthopedic surgery at the time of admission-recommends MRI of the lumbar spine which is pending -Continue pain control with IV morphine as needed, hydrocodone as needed, Tylenol as needed -Out of bed with assistance only -Appreciate orthopedic spine surgery consultation (2) Hypertension: Plan: Blood pressures quite elevated upon arrival with blood pressures 170s over 120s diastolic He did take his medications this morning, except for his Lasix, but was experiencing significant pain -Pain control -Continue home medications of metoprolol, lisinopril, verapamil, Lasix as needed -Give IV hydralazine 5 mg IV x1 now and then 10 mg hydralazine IV every 8 hours as needed systolic greater than 180 (3) History of smoking: Plan: Quit 20 years ago after [id number] history No no formal diagnosis of COPD (4) Leukocytosis: Plan: WBC count elevated at 20 upon arrival most likely secondary to taking Medrol Dosepak and last 2 days Follow CBC in the morning Expect this will likely continue given ongoing steroid use No evidence of infection seen on imaging Await MRI lumbar spine (5) Ambulatory dysfunction: Plan: Secondary to lumbar radiculopathy as above Out of bed with assistance only for now Await imaging and orthopedic spine consultation Plan: DVT prophylaxis-ANNA hose, hold off on Lovenox SQ at this time until plan known from a surgical standpoint Disposition-bring in on observation to medical/surgical floor Patient is a full code as discussed with him and his son at the bedside History of Present Illness Chief Complaint: Back pain Primary Care Provider: Lei De La Vega This patient is a 70-year-old male with a history of HTN, smoking, and chronic lower back pain, who presents to the ER with over 1 week of progressively worsening lower back pain causing inability to ambulate. He was turkey hunting a couple of weeks ago and feels like he overdid it at that point. The back pain started 10 days ago and has progressively worsened. He was seen at [facility] ER and placed on a steroid burst as well as hydrocodone without improvement. He denies any bowel or bladder symptoms, no fevers or recent trauma. He did have 2 falls in the last day as per his son at the bedside and the patient reports that at times when he stands up he feels like his knees are just going to buckle out from underneath him. He also reports that he has developed numbness in both his feet and great toes in the last 24 hours. In the ER, his blood pressure was elevated as he had not yet taken any of his blood pressure medicines for the day. He had a leukocytosis of 20 K which is most likely secondary to corticosteroid use. He had a CT of the abdomen/pelvis and lumbar spine which showed a large posterior disc bulge eccentric to the right at L4-L5 unchanged from CT 2017, moderate constipation, and chronic findings of bladder outlet obstruction, renal cysts, and bilateral fat- containing adrenal adenomas. In the ER, he was given 2 doses of IV morphine and a dose of IV Zofran but was still unable to get up and ambulate. He will be brought into the hospital in observation for pain control and further evaluation with MRI of the lumbar spine. Allergies Allergy/AdvReac Type Severity Reaction Status Date / Time No Known Allergies Allergy Unverified 01/23/21 08:31 Home Medications Medication Instructions Recorded Confirmed Type furosemide 20 mg tablet 20 mg PO DAILY PRN 01/23/21 01/23/21 History hydrocodone 5 mg-acetaminophen 325 1 tab PO TID PRN 01/23/21 01/23/21 History mg tablet lisinopril 20 mg tablet 20 mg PO BID 01/23/21 01/23/21 History methylprednisolone 4 mg tablets in 4 mg PO UD 01/23/21 01/23/21 History a dose pack metoprolol succinate 25 mg 25 mg PO DAILY 01/23/21 01/23/21 History tablet,extended release 24 hr potassium chloride 10 mEq 10 meq PO DAILY PRN 01/23/21 01/23/21 History tablet,extended release verapamil 180 mg tablet,extended 180 mg PO BID 01/23/21 01/23/21 History release Past Med/Surg History Medical History (Updated 01/23/21 @ 13:34 by Camille Glasgow MD) Chronic lower back pain History of smoking Hypertension Surgical History (Updated 01/23/21 @ 13:31 by Camille Glasgow MD) History of tibial fracture With surgical repair Family History Other Family history non-contributory Social History Smoking Status: Never smoker Feels Safe at Home: Yes Review of Systems Review of Systems: All systems reviewed & are unremarkable except as noted in HPI & below Physical Exam Constitutional: WD/WN, vitals as above Eyes: PERRL, conjunctivae normal, anicteric sclerae ENMT: external ear and nose normal, oropharynx normal Neck: trachea midline, no thyromegaly Respiratory: normal respiratory effort, lungs clear to auscultation Cardiovascular: RRR, no murmur, no edema Chest (Breasts): Chest: normal inspection of chest Gastrointestinal (Abdomen): normal bowel sounds, soft, nontender, no hepatosplenomegaly Musculoskeletal: Extremities: strength 5/5 throughout (Except 4/5 throughout right lower extremity); + extremities abnormal to inspection (2+ pitting edema legs and feet bilaterally-chronic), no cyanosis and no clubbing Skin: no rashes, warm and dry Neurologic: moves all extremities and awake 5/5 strength throughout lower extremities bilaterally except 4/5 throughout right lower extremity, as well as 4/5 strength with bilateral great toe dorsiflexion Sensation decreased to light touch and pinprick in left lateral leg as well as b ilateral great toes DTRs 1+ throughout lower extremities Negative straight leg raise bilaterally Psychiatric: A+Ox3, euthymic affect Results & Data Results & Data ([facility]) Vital Signs (Past 12 Hours) Vital Signs Temp Pulse Pulse Resp BP BP Pulse Ox 01/23/21 09:00 58 L 20 190/93 H 97 01/23/21 07:42 62 20 167/109 H 96 01/23/21 07:31 20 96 01/23/21 06:35 97 01/23/21 06:12 36.9 C 61 16 206/85 H 96 Laboratory Results 01/23/21 01/23/21 01/23/21 Range/Units 11:02 09:40 07:27 WBC (4.8-10.8) K/uL RBC (4.7-6.1) M/uL Hgb (14.0-18.0) g/dL Hct (42-52) % MCV (80-100) fL MCH (25-34) pg MCHC (32-36) g/dL RDW Std Deviation (36.4-46.3) fL RDW Coeff of Khushboo (11.5-14.5) % Plt Count (130-400) K/uL MPV (7.4-10.4) fL Immature Gran % (Auto) % Neut % (Auto) % Lymph % (Auto) % Shannon % (Auto) % Eos % (Auto) % Baso % (Auto) % Neut # (Auto) (1.4-6.5) K/uL Lymph # (Auto) (1.2-3.4) K/uL Shannon # (Auto) (0.11-0.59) K/uL Eos # (Auto) (0-0.5) K/uL Baso # (Auto) (0-0.2) K/uL Immature Gran # (Auto) (0.00-0.02) K/uL Sodium 138 (136-145) mmol/L Potassium (3.5-5.1) mmol/L Chloride 107 (98-107) mmol/L Carbon Dioxide 23 (21-32) mmol/L Anion Gap 9.0 (3-11) BUN 22 H (7-18) mg/dl Creatinine 0.96 (0.6-1.4) mg/dl Est Cr Clr Drug Dosing 91.3 ml/min Est GFR ( Amer) 93.1 ml/min Est GFR (Non-Af Amer) 80.3 ml/min BUN/Creatinine Ratio 23.0 H (10-20) Glucose 100 H (70-99) mg/dl Calcium 8.9 (8.5-10.1) mg/dl Total Bilirubin 0.4 (0.2-1) mg/dl AST (15-37) U/L ALT 21 (12-78) U/L Alkaline Phosphatase 75 (45-117) U/L Total Protein 8.8 H (6.4-8.2) gm/dl Albumin 3.6 (3.4-5.0) gm/dl Globulin 5.2 H (2.5-4.0) gm/dl Albumin/Globulin Ratio 0.7 L (0.9-2) Lipase 150 (73-393) U/L Urine Color Yellow Urine Appearance Clear (Clear) Urine pH 5.0 (4.5-7.5) Ur Specific [place] 1.030 (1.000-1.030) Urine Protein Trace H (Negative) Urine Glucose (UA) Negative (Negative) Urine Ketones Negative (Negative) Urine Blood 1+ H (Negative) Urine Nitrite Negative (Negative) Urine Bilirubin Negative (Negative) Urine Urobilinogen Negative (Negative) Ur Leukocyte Esterase Negative (Negative) Urine WBC (Auto) 1-5 (0-5) /hpf Urine RBC (Auto) 0-4 (0-4) /hpf U Hyaline Cast (Auto) 1-5 (0-5) /lpf U Epithel Cells (Auto) 5-10 H (0-5) /lpf Urine Bacteria (Auto) Negative (Negative) SARS-CoV-2, RNA, NAAT NEGATIVE (NEGATIVE) 01/23/21 Range/Units 07:27 WBC 20.96 H (4.8-10.8) K/uL RBC 4.63 L (4.7-6.1) M/uL Hgb 14.3 (14.0-18.0) g/dL Hct 42.6 (42-52) % MCV 92.0 (80-100) fL MCH 30.9 (25-34) pg MCHC 33.6 (32-36) g/dL RDW Std Deviation 45.1 (36.4-46.3) fL RDW Coeff of Khushboo 13.4 (11.5-14.5) % Plt Count 303 (130-400) K/uL MPV 10.4 (7.4-10.4) fL Immature Gran % (Auto) 0.6 % Neut % (Auto) 82.5 % Lymph % (Auto) 8.2 % Shannon % (Auto) 8.7 % Eos % (Auto) 0.0 % Baso % (Auto) 0.0 % Neut # (Auto) 17.28 H (1.4-6.5) K/uL Lymph # (Auto) 1.71 (1.2-3.4) K/uL Shannon # (Auto) 1.83 H (0.11-0.59) K/uL Eos # (Auto) 0.01 (0-0.5) K/uL Baso # (Auto) 0.01 (0-0.2) K/uL Immature Gran # (Auto) 0.12 H (0.00-0.02) K/uL Sodium (136-145) mmol/L Potassium (3.5-5.1) mmol/L Chloride (98-107) mmol/L Carbon Dioxide (21-32) mmol/L Anion Gap (3-11) BUN (7-18) mg/dl Creatinine (0.6-1.4) mg/dl Est Cr Clr Drug Dosing ml/min Est GFR ( Amer) ml/min Est GFR (Non-Af Amer) ml/min BUN/Creatinine Ratio (10-20) Glucose (70-99) mg/dl Calcium (8.5-10.1) mg/dl Total Bilirubin (0.2-1) mg/dl AST (15-37) U/L ALT (12-78) U/L Alkaline Phosphatase (45-117) U/L Total Protein (6.4-8.2) gm/dl Albumin (3.4-5.0) gm/dl Globulin (2.5-4.0) gm/dl Albumin/Globulin Ratio (0.9-2) Lipase (73-393) U/L Urine Color Urine Appearance (Clear) Urine pH (4.5-7.5) Ur Specific [place] (1.000-1.030) Urine Protein (Negative) Urine Glucose (UA) (Negative) Urine Ketones (Negative) Urine Blood (Negative) Urine Nitrite (Negative) Urine Bilirubin (Negative) Urine Urobilinogen (Negative) Ur Leukocyte Esterase (Negative) Urine WBC (Auto) (0-5) /hpf Urine RBC (Auto) (0-4) /hpf U Hyaline Cast (Auto) (0-5) /lpf U Epithel Cells (Auto) (0-5) /lpf Urine Bacteria (Auto) (Negative) SARS-CoV-2, RNA, NAAT (NEGATIVE) Diagnostic Findings Abdomen/Pelvis CT 01/23/21 06:59 CT SCAN OF THE ABDOMEN AND PELVIS WITHOUT IV CONTRAST; CT SCAN OF THE LUMBAR SPINE WITHOUT IV CONTRAST CLINICAL HISTORY: Generalized weakness. Low back pain. COMPARISON STUDY: Abdominal CT dated 04/08/2016. TECHNIQUE: CT scan of the abdomen and pelvis is performed from the lung bases to the proximal femora. Additionally, CT scan of the lumbar spine is performed from the lower thoracic spine to sacrum. Images for both examinations are reviewed in the axial, sagittal, and coronal planes. IV contrast was not administered for this examination. A dose lowering technique was utilized adhering to the principles of ALARA. CT DOSE: 1230.40 mGycm FINDINGS: Lung bases: The heart is normal in size and without pericardial effusion. There are coronary artery calcifications. There is no airspace consolidation or pleural effusion. Scarring/atelectasis is present at both lung bases. Peribronchial thickening is seen in the lower lobes with mucous plugging at the right lung base. There is a tiny hiatal hernia. Liver: The unenhanced liver is normal in size, contour, and attenuation. There is no intrahepatic biliary ductal dilatation. Gallbladder: Unremarkable. Spleen: Normal in size and attenuation. Pancreas: The unenhanced pancreas is grossly unremarkable. Adrenal glands: Small bilateral adrenal nodules measuring up to 1.[address] criteria for fat-containing adenomas. Kidneys: The unenhanced kidneys are normal in size and without hydronephrosis. There are no renal calculi identified. There are numerous bilateral simple and complex/hyperdense renal cyst which measure up to 3.3 cm. Abdominal vasculature: The abdominal aorta is normal in course and caliber noting moderate atherosclerotic calcification. Bowel: There is moderate colonic diverticulosis without CT evidence of acute diverticulitis. No bowel obstruction is seen. Moderate fecal retention is present throughout the colon. The appendix is well-visualized and normal. Peritoneum: There is no intraperitoneal free air or abdominal ascites. There is a small fat-containing umbilical hernia. Lymphadenopathy: None. Pelvic viscera: The prostate gland is enlarged and heterogeneous noting median lobe hypertrophy. The bladder is decompressed. The wall appears thickened/trabeculated suggesting chronic outlet obstruction. Skeletal structures: Supraclavicular dedicated discussion of the lumbar spine. The bony pelvis and proximal femora are maintained. No lytic or blastic lesions are seen. LUMBAR SPINE: Vertebral body height and alignment are maintained throughout the lumbar spine. There is no evidence of fracture or malalignment. Anterior and lateral marginal osteophytes are seen throughout. The transverse and spinous processes are intact. A Schmorl's node is seen in the superior endplate of L1. There is no evidence of spondylolysis. There is mild multilevel degenerative disc space narrowing and multilevel vacuum phenomenon. There is a large posterior disc bulge eccentric to the right at L4-L5. Mild disc bulges are seen at L2-L3, L3-L4, and L5-S1. The paraspinous soft tissues are within normal limits. IMPRESSION: 1. There are no acute infectious or inflammatory findings in the abdomen or pelvis. 2. Moderate constipation. 3. Moderate colonic diverticulosis without CT evidence of acute diverticulitis. 4. No acute bony abnormality is seen involving the lumbar spine. 5. There is a large posterior disc bulge eccentric to the right L4-L5 as above. This is similar to the 2017 examination. ACT 112: Negative or not required by law. Electronically signed by: Nick Laura M.D. 01/23/2021 8:[address] 01/23/21 06:59 CT SCAN OF THE ABDOMEN AND PELVIS WITHOUT IV CONTRAST; CT SCAN OF THE LUMBAR SPINE WITHOUT IV CONTRAST CLINICAL HISTORY: Generalized weakness. Low back pain. COMPARISON STUDY: Abdominal CT dated 04/08/2016. TECHNIQUE: CT scan of the abdomen and pelvis is performed from the lung bases to the proximal femora. Additionally, CT scan of the lumbar spine is performed from the lower thoracic spine to sacrum. Images for both examinations are reviewed in the axial, sagittal, and coronal planes. IV contrast was not administered for this examination. A dose lowering technique was utilized adhering to the principles of ALARA. CT DOSE: 1230.40 mGycm FINDINGS: Lung bases: The heart is normal in size and without pericardial effusion. There are coronary artery calcifications. There is no airspace consolidation or pleural effusion. Scarring/atelectasis is present at both lung bases. Peribronchial thickening is seen in the lower lobes with mucous plugging at the right lung base. There is a tiny hiatal hernia. Liver: The unenhanced liver is normal in size, contour, and attenuation. There is no intrahepatic biliary ductal dilatation. Gallbladder: Unremarkable. Spleen: Normal in size and attenuation. Pancreas: The unenhanced pancreas is grossly unremarkable. Adrenal glands: Small bilateral adrenal nodules measuring up to 1.[address] criteria for fat-containing adenomas. Kidneys: The unenhanced kidneys are normal in size and without hydronephrosis. There are no renal calculi identified. There are numerous bilateral simple and complex/hyperdense renal cyst which measure up to 3.3 cm. Abdominal vasculature: The abdominal aorta is normal in course and caliber noting moderate atherosclerotic calcification. Bowel: There is moderate colonic diverticulosis without CT evidence of acute diverticulitis. No bowel obstruction is seen. Moderate fecal retention is present throughout the colon. The appendix is well-visualized and normal. Peritoneum: There is no intraperitoneal free air or abdominal ascites. There is a small fat-containing umbilical hernia. Lymphadenopathy: None. Pelvic viscera: The prostate gland is enlarged and heterogeneous noting median lobe hypertrophy. The bladder is decompressed. The wall appears thickened/trabeculated suggesting chronic outlet obstruction. Skeletal structures: Supraclavicular dedicated discussion of the lumbar spine. The bony pelvis and proximal femora are maintained. No lytic or blastic lesions are seen. LUMBAR SPINE: Vertebral body height and alignment are maintained throughout the lumbar spine. There is no evidence of fracture or malalignment. Anterior and lateral marginal osteophytes are seen throughout. The transverse and spinous processes are intact. A Schmorl's node is seen in the superior endplate of L1. There is no evidence of spondylolysis. There is mild multilevel degenerative disc space narrowing and multilevel vacuum phenomenon. There is a large posterior disc bulge eccentric to the right at L4-L5. Mild disc bulges are seen at L2-L3, L3-L4, and L5-S1. The paraspinous soft tissues are within normal limits. IMPRESSION: 1. There are no acute infectious or inflammatory findings in the abdomen or pelvis. 2. Moderate constipation. 3. Moderate colonic diverticulosis without CT evidence of acute diverticulitis. 4. No acute bony abnormality is seen involving the lumbar spine. 5. There is a large posterior disc bulge eccentric to the right L4-L5 as above. This is similar to the 2017 examination. ACT 112: Negative or not required by law. Electronically signed by: Nick Laura M.D. 01/23/2021 8:41 AM Code Status & VTE Plan Code Status Full code VTE Prophylaxis Plan VTE Prophylaxis will be ordered: Yes PG Care Time/CCT Total # of Minutes Spent Total Time Spent with Patient: Total time spent is greater than 50% in coordination of care (as documented) at patient's floor/unit and/or counseling patient: Coding Level of Care Code INT OBSERVATION CARE 70M LVL 3 Diagnoses Hypertension I10 History of smoking Z87.891 Lumbar disc herniation M51.26 Leukocytosis D72.829 Leukocytosis type: unspecified Ambulatory dysfunction R26.2 (1) Leukocytosis Leukocytosis type: unspecified Qualified Code(s): D72.829 - Elevated white blood cell count, unspecified
--- NOTE | 2021-01-23 11:48 | XRay Report ---
BONY ORBITS 3 VIEWS CLINICAL HISTORY: MRI clearance. FINDINGS: 3 views of the bony orbits are obtained. No prior studies are available for comparison at t he time of dictation. There is no radiodense/metallic foreign body seen in the region of the bony orb its. The bony orbits are intact as imaged. The visualized paranasal sinuses and the mastoid air cells appear clear. The imaged calvarium appears intact. IMPRESSION: There is no radiodense/metallic foreign body seen in the region of the bony orbits. ACT 112: Negative or not required by law. Electronically signed by: Nick Laura M.D. 01/23/2021 11:46 AM
[2021-01-23] MEDS ORDERED: hydrALAZINE HCL 20 MG/ML VIAL IV ONE (12:12)
[2021-01-23] MEDS ORDERED: dexAMETHasone 8 MG in SYRINGE 0 ML IV ONE (12:12)
[2021-01-23] MEDS ORDERED: MoRPHine SULFATE 4 MG/ML 1 ML CARP\\VIAL IV PRN (13:25)
--- NOTE | 2021-01-23 13:34 | Magnetic Resonance Report ---
MRI OF THE LUMBAR SPINE WITHOUT IV CONTRAST CLINICAL HISTORY: Lower extremity weakness. Difficulty walking. COMPARISON STUDY: CT of the lumbar spine dated 01/23/2021. TECHNIQUE: MRI of the lumbar spine is performed utilizing various T1 and T2-weighted sequences in the axial and sagittal planes. IV contrast was not administered for this examination. FINDINGS: Lumbar spine: Vertebral body height and alignment are maintained throughout the lumbar spine. A Schmo rl's node is seen in the superior endplate of L1. Small anterior and lateral marginal osteophytes are seen throughout. The transverse and spinous processes appear intact. There is no spondylolysis. No d estructive bony lesion is identified. Intervertebral discs: Degenerative disc desiccation and minimal loss of height is seen throughout the lumbar spine. This is greatest at L1-L2. Spinal cord: The visualized spinal cord is normal in morphology and signal intensity. The conus medul galo terminates at the T12-L1 interspace. The nerve roots of the cauda equina are normal in morpholo gy. L1-L2: There is minimal posterior disc bulge. This abuts the transiting nerve roots. The central fiona l and neural foramina are patent. L2-L3: There is broad-based posterior disc bulge and annular fissure. This abuts the transiting nerve roots. There is no acquired compromise of the central canal. The neural foramina are patent. L3-L4: There is broad-based posterior disc bulge eccentric to the left. This abuts the transiting ner ve roots. No acquired compromise of the central canal is identified. Mild facet arthropathy is of no confluence. The neural foramina are patent. L4-L5: There is broad-based posterior disc bulge. This abuts the transiting nerve roots. There is no significant acquired compromise of the central canal. There is bilateral subarticular stenosis. This may abut the exiting bilateral L4 nerve roots. In conjunction with facet arthropathy there is mild bi lateral neural foraminal stenosis. L5-S1: There is a small posterior central disc protrusion. No significant acquired compromise of the central canal is identified. There is mild bilateral subarticular stenosis. A 7 mm synovial cyst is s uggested arising from the right facet joint, best seen on sagittal image #8. In conjunction with the facet arthropathy this causes at least moderate right neural foraminal narrowing. There is mild to mo derate neural foraminal narrowing seen on the left. Sacrum: The visualized sacrum is normal in morphology and signal intensity. Soft tissues: There is mild fatty atrophy of the paraspinous musculature. The retroperitoneal structu res are grossly unremarkable but incompletely evaluated. IMPRESSION: 1. There is no large disc herniation or significant acquired compromise of the central canal. 2. Multilevel lumbosacral spondylosis as above. See discussion for detailed level by level analysis. 3. No acute osseous abnormality is identified. Dictated: 01/23/2021 12:42 PM Transcribed: 01/23/2021 1:17 PM Margaret [id number] [facility] Electronically signed by: Nick Laura M.D. 01/23/2021 1:33 PM
[2021-01-23] MEDS: hydrALAZINE HCL 20 MG/ML VIAL IV PRN (13:58)
[2021-01-23] MEDS: lisinopril 20 MG TAB PO SCH (17:15)
[2021-01-23] MEDS: VERAPAMIL HCL 180 MG TABCR PO SCH (17:46)
[2021-01-23] MEDS: HYDROCODONE/ACETAMOPHEN 5/325MG TAB PO PRN (17:49)
[2021-01-23] MEDS ORDERED: hydrALAZINE HCL 20 MG/ML VIAL IV STA (18:57)
[2021-01-24 06:16] LABS: Basophils # (auto) 0.01 K/uL (0-0.2); Basophils % (auto) 0.1 %; Hematocrit (blood only) 40.7 % (42-52); Hemoglobin 13.8 g/dL (14.0-18.0); Immature Granulocytes % (auto) 1.2 %; Lymphocytes # (auto) 1.46 K/uL (1.2-3.4); Lymphocytes % (auto) 8.9 %; Mean Corpuscular Hemoglobin 30.9 pg (25-34); Mean Corpuscular Hgb Conc 33.9 g/dL (32-36); Mean Corpuscular Volume 91.3 fL (80-100); Mean Platelet Volume 9.7 fL (7.4-10.4); Monocytes % (auto) 4.9 %; Neutrophils # (auto) 13.94 K/uL (1.4-6.5); Neutrophils % (auto) 84.9 %; Platelet Count 385 K/uL (130-400); RDW Coefficient of Variation 13.3 % (11.5-14.5); RDW Standard Deviation 43.8 fL (36.4-46.3); Red Blood Count 4.46 M/uL (4.7-6.1); White Blood Count 16.41 K/uL (4.8-10.8)
[2021-01-24 06:44] LABS: BUN Creatinine Ratio 22.9 (10-20); Calcium 8.3 mg/dl (8.5-10.1); Creatinine Clr Calc Pharmacy 112.3 ml/min; Est GFR (African American) 106.7 ml/min; Est GFR (Non-African American) 92.1 ml/min; Potassium 4.3 mmol/L (3.5-5.1)
[2021-01-24] MEDS: METOPROLOL SUCC 25MG EXT REL TAB PO SCH (07:29)
[2021-01-24] MEDS: VERAPAMIL HCL 180 MG TABCR PO SCH ×2 (07:29→20:37)
[2021-01-24] MEDS: lisinopril 20 MG TAB PO SCH ×2 (07:29→20:37)
[2021-01-24] MEDS: dexAMETHasone 8 MG in SYRINGE 0 ML IV SCH (07:29)
[2021-01-24] MEDS: hydrALAZINE HCL 20 MG/ML VIAL IV PRN (08:19)
--- NOTE | 2021-01-24 10:09 | Orthopedic Consultation ---
Date of Consultation January 24, 2021 Assessment & Plan (1) Lumbar disc herniation: Assessment lumbar spinal stenosis. Plan MRI lumbar spine does demonstrate evidence of multilevel lumbar spinal stenosis with disc protrusions. Most impressive is a facet cyst at the L5-S1 level on the right with significant neural foraminal encroachment and vacuum phenomenon within the disc. This would certainly contribute to an L5 radiculopathy and may be the etiology of his symptom complex. I will reevaluate him tomorrow get a better assessment to his actual pain patterns and limitations. History of Present Illness Reason for Consultation: Back pain and leg weakness Attending Physician: Neil Bojorquez MD History of Present Illness This is a 70-year-old male who presents with decline in function and inability to ambulate secondary to right leg pain and weakness. This morning he seems somewhat confused. His history is inconsistent. He does not recall any trauma or fall or accident. Denies any acute leg pain during our discussion this morning. Allergies Allergy/AdvReac Type Severity Reaction Status Date / Time No Known Allergies Allergy Unverified 01/23/21 08:31 Home Medications Medication Instructions Recorded Confirmed Type furosemide 20 mg tablet 20 mg PO DAILY PRN 01/23/21 01/23/21 History hydrocodone 5 mg-acetaminophen 325 1 tab PO TID PRN 01/23/21 01/23/21 History mg tablet lisinopril 20 mg tablet 20 mg PO BID 01/23/21 01/23/21 History methylprednisolone 4 mg tablets in 4 mg PO UD 01/23/21 01/23/21 History a dose pack metoprolol succinate 25 mg 25 mg PO DAILY 01/23/21 01/23/21 History tablet,extended release 24 hr potassium chloride 10 mEq 10 meq PO DAILY PRN 01/23/21 01/23/21 History tablet,extended release verapamil 180 mg tablet,extended 180 mg PO BID 01/23/21 01/23/21 History release Patient History Medical History (Updated 01/23/21 @ 13:34 by Camille Glasgow MD) Chronic lower back pain History of smoking Hypertension Surgical History (Updated 01/23/21 @ 13:31 by Camille Glasgow MD) History of tibial fracture With surgical repair Family History Other Family history non-contributory Social History Smoking Status: Former smoker Do You Dip or Chew Tobacco: Yes; Tobacco Cessation Education Requested by Patient: No Hx Alcohol Use: Yes Alcohol type: beer Hx Substance Use: No Preferred Language: Latvian Communication Ability: Effective Fire Inspector Required: No Beliefs That Will Affect Care: None Current Living Situation: Alone Other Information That Helps Us Care for You: No Feels Safe at Home: Yes Safety Concerns: Feels Safe At This Time Assistive Devices: Glasses and Walker Physical Exam Physical Exam: On physical exam he again is somewhat disoriented. Was able to sit up in bed without difficulty. I did attempt to try to have him stand. This was a difficult for him to do so. He was clearly unsteady. Did not ask him to ambulate. He does have evidence of some weakness to dorsiflexion bilaterally. Sensory diminished. Results & Data ([facility]) Vital Signs (Past 12 Hours) Vital Signs Temp Pulse Resp BP Pulse Ox 01/24/21 07:33 36.4 C L 70 16 187/90 H 94
[2021-01-24] MEDS ORDERED: FILGRASTIM 480 MCG/1.6 ML VIAL SC ONE (12:28)
[2021-01-24] MEDS ORDERED: FILGRASTIM 300 MCG/ML VIAL SC ONE (12:30)
--- NOTE | 2021-01-24 18:08 | Hospitalist Progress Note ---
Date of Service January 24, 2021 Assessment & Plan (1) Low back pain: Plan: Patient with a longstanding history of low back pain that has been progressively worse and subsequently leading to ambulatory dysfunction Presented to the ED yesterday given inability to walk CT scan showed large bulging disc at the level of L4-L5 MRI subsequently obtained showing no evidence of large disc herniation or central cord compromise of the central canal. Multilevel lumbosacral spondylosis without central canal compromise Did have radiculopathy down the right lower extremity Started on steroids with significant adequate response Hydrocodone on board for pain control with morphine as needed for breakthrough Do not see any significant indication for surgery at this time. Would advise adequate pain control along with PT/OT If patient tolerating pain medication, pain is controlled and he is able to ambulate (including three steps) would proceed with discharge to home with outpatient PT/OT Dr. Frias consulted. This was briefly discussed with him who agrees with the plan as outlined above. He will see him in the morning as well and further review MRI (2) Ambulatory dysfunction: Plan: See above (3) Leukocytosis: Plan: Likely steroid-induced. Patient was on Medrol Dosepak prior to presentation to the ED He is without fever and there is no obvious source of infection (4) Hypertension: Plan: BP elevated at 206/85 upon presentation into the ED Currently 166/95 He has been continued on his verapamil, lisinopril, and metoprolol Would consider up titration of one of these medications if needed. Accelerated BP may be pain related Plan: Plan of care discussed with Dr. Bojorquez and Dr. Frias Admission and Anticipated Discharge Date Admission Date: January 23, 2021 Subjective Patient seen on daily rounds today. Admitted yesterday with low back pain and radiculopathy down the right lower extremity (not extending below the knee). Did not have loss of bowel or bladder function. Apparently ongoing issue. Had worsening pain causing ambulatory dysfunction. Seen by PCP and started on a Medrol Dosepak without improvement. Did have a CT of the lumbar spine showing large L4-L5 disc bulge. MRI subsequently done showing no evidence of disc herniation but multilevel disc bulge. Subsequently hospitalized for further evaluation and care. Started on Decadron and reports that his pain is significantly improved. Has yet to get out of bed to determine if he is able to ambulate. Does have three steps leading into the home. Lives in a one-story home otherwise. Lives alone but has family that lives close by. Review of Systems Review of Systems: All systems reviewed and are unremarkable except as noted in HPI and below Denies fevers, chills, headache, nasal congestion, sore throat, cough, chest pain, shortness of breath, palpitations, orthopnea, PND, abdominal pain, nausea, vomiting, diarrhea, constipation, dysuria, hematuria, frequency, back pain, swelling, easy bruising or bleeding, skin lesions or rashes. Physical Exam Physical Exam: General: Resting comfortably in his hospital bed. NAD. HEENT: Head is AT/NC buccal mucosa is moist and pink Neck: No JVD. Negative hepatojugular reflex Cardiac: RRR without M/G/R Lungs: CTA without W/R/R Abdomen: Normoactive X4. Soft and nontender in all quadrants. Extremities: Negative straight leg raise. No tenderness to palpation along the lower spine. Able to flex and extend at the hips. Distal pulses the lower extremities are intact symmetrical bilaterally. Neuro: A&O X4 cranial nerves II through XII are grossly intact no focal neuro deficits Skin: No obvious skin lesions or rashes Psych: Appropriate affect pleasant and cooperative Results & Data Results & Data ([facility]) Vital Signs (Past 12 Hours) Vital Signs Temp Pulse Resp BP BP Pulse Ox 01/24/21 14:49 36.9 C 64 16 166/95 H 92 01/24/21 12:06 167/92 H 01/24/21 07:33 36.4 C L 70 16 187/90 H 94 Laboratory Results 01/24/21 05:53 01/24/21 05:53 PG Care Time/CCT Total # of Minutes Spent Total Time Spent with Patient: Total time spent is greater than 50% in coordination of care (as documented) at patient's floor/unit and/or counseling patient: Coding Level of Care Code 65072 Subseq Hosp Care Lvl 2 Diagnoses Low back pain M54.50 Ambulatory dysfunction R26.2 Leukocytosis D72.829 Hypertension I10
[2021-01-25] MEDS: HYDROCODONE/ACETAMOPHEN 5/325MG TAB PO PRN ×2 (05:09→20:25)
[2021-01-25] MEDS: hydrALAZINE HCL 20 MG/ML VIAL IV PRN ×2 (06:19→07:00)
[2021-01-25] MEDS: lisinopril 20 MG TAB PO SCH ×2 (08:15→20:25)
[2021-01-25] MEDS: dexAMETHasone 8 MG in SYRINGE 0 ML IV SCH (08:15)
[2021-01-25] MEDS: METOPROLOL SUCC 25MG EXT REL TAB PO SCH (08:15)
[2021-01-25] MEDS: VERAPAMIL HCL 180 MG TABCR PO SCH ×2 (08:15→20:28)
--- NOTE | 2021-01-25 08:18 | Hospitalist Progress Note ---
Date of Service January 25, 2021 Assessment & Plan (1) Low back pain: Plan: Patient with a longstanding history of low back pain that has been progressively worse and subsequently leading to ambulatory dysfunction Presented to the ED yesterday given inability to walk CT scan showed large bulging disc at the level of L4-L5 MRI subsequently obtained showing no evidence of large disc herniation or central cord compromise of the central canal. Multilevel lumbosacral spondylosis without central canal compromise Did have radiculopathy down the right lower extremity Started on steroids with significant adequate response Hydrocodone on board for pain control with morphine as needed for breakthrough (only required 1 dose today) Do not see any significant indication for surgery at this time. Would advise adequate pain control along with PT/OT If patient tolerating pain medication, pain is controlled and he is able to ambulate (including three steps) would proceed with discharge to home with outpatient PT/OT Dr. Frias consulted. This was briefly discussed with him who agrees with the plan as outlined above. He will see him in the morning as well and further review MRI 01/25 Patient with improvement in symptoms but still with some weakness to RLE reported. Had not been up out of bed walking yet. PT/OT consults pending to see mobility now that steroids on board and symptoms improving --> REC FOR REHAB. Continues on Dexamethasone 8mg IV daily Per discussion with Dr. Frias, if does ok with therapy, would prefer holding off surgery and d/c on steroid taper and can see in office for follow up or sooner if worsens to indicate need for surgery -- would give 8mg IV again tomorrow prior to d/c. BP elevated and utilizing hydralzine prn -- has been asymptomatic by may need hydralazine prn at d/c if BPs elevated Continue to monitor (2) Ambulatory dysfunction: Plan: See above PT/OT consults pending -- recs for rehab. CM following and to provide with list of facilities Will ask Dr Frias to stop by again tomorrow to discuss plan but hopeful for rehab prior to surgical intervention (3) Leukocytosis: Plan: Likely steroid-induced. Patient was on Medrol Dosepak prior to presentation to the ED He is without fever and there is no obvious source of infection (4) Hypertension: Plan: BP elevated at 206/85 upon presentation into the ED Continues on his verapamil, lisinopril, and metoprolol BP elevated again this morning, likely 2nd to steroid use. Given dose of hydralazine and BP currently 162/79 Consider prn hydralazine at home if able to monitor BPs however hopefully improvement with tapering steroids at d/c as above Continue to monitor Plan: Continued inpatient stay, dexamethasone in AM If improvement/stable with therapy, possible d/c to rehab per recs by therapy vs need for surgery. Dr Frias to see tomorrow Admission and Anticipated Discharge Date Admission Date: January 23, 2021 Subjective eval this morning symptoms on left improving but still present on right has not yet seen Dr Frias or been up walking out of bed yet -- therapy arriving upon leaving the room to see how he does his main wish is to get out of the hospital, but is willing to consider surgery if needed. will see how he does with therapy and eval by ortho, as still on dexa IV 8mg and not decreased yet. Will keep current dose for now, possible see how he does with decreased dose tomorrow as far as symptoms if wanting to hold off on surgery. no fever, chill, cp, sob, abd pain, nausea, vomiting or dysuria reported. BPs elevated but no symptoms. no headache and notes since on BP medications he "doesn't know what a headache is anymore". Review of Systems Review of Systems: All systems reviewed & are unremarkable except as noted in HPI & below Physical Exam Physical Exam: General: Resting comfortably in his hospital bed. NAD. HEENT: Head is AT/NC buccal mucosa is moist and pink Neck: No JVD. Negative hepatojugular reflex Cardiac: RRR without M/G/R Lungs: CTA without W/R/R Abdomen: Normoactive X4. Soft and nontender in all quadrants. MSK/Extremities: Negative straight leg raise. No tenderness to palpation along the lower spine. Able to flex and extend at the hips (some decreased strength RLE with extension against resistance). Distal pulses the lower extremities are intact symmetrical bilaterally. Neuro: A&O X4 cranial nerves II through XII are grossly intact, decreased sensation to light touch L4-L5 region Skin: No obvious skin lesions or rashes Psych: Appropriate affect pleasant and cooperative Results & Data Results & Data ([facility]) Vital Signs (Past 12 Hours) Vital Signs Temp Pulse Pulse Resp BP Pulse Ox 01/25/21 08:14 62 162/79 H 01/25/21 06:13 213/110 H 01/25/21 05:58 36.9 C 69 16 196/95 H 96 01/24/21 22:44 37.1 C 74 16 158/84 H 95 Laboratory Results 01/25/21 Range/Units 08:53 Sodium 135 L (136-145) mmol/L Potassium 4.1 (3.5-5.1) mmol/L Chloride 102 (98-107) mmol/L Carbon Dioxide 24 (21-32) mmol/L Anion Gap 9.0 (3-11) BUN 25 H (7-18) mg/dl Creatinine 1.23 D (0.6-1.4) mg/dl Est Cr Clr Drug Dosing 71.2 ml/min Est GFR ( Amer) 69.0 ml/min Est GFR (Non-Af Amer) 59.5 ml/min BUN/Creatinine Ratio 20.0 (10-20) Glucose 135 H (70-99) mg/dl Calcium 8.9 (8.5-10.1) mg/dl PG Care Time/CCT Total # of Minutes Spent Total Time Spent with Patient: Total time spent is greater than 50% in coordination of care (as documented) at patient's floor/unit and/or counseling patient: Coding Level of Care Code 97478 Subseq Obs Care Lvl 2 Diagnoses Low back pain M54.50 Ambulatory dysfunction R26.2 Leukocytosis D72.829 Hypertension I10
[2021-01-25 09:28] LABS: Calcium 8.9 mg/dl (8.5-10.1); Creatinine Clr Calc Pharmacy 71.2 ml/min; Est GFR (Non-African American) 59.5 ml/min; Potassium 4.1 mmol/L (3.5-5.1)
[2021-01-26] MEDS: HYDROCODONE/ACETAMOPHEN 5/325MG TAB PO PRN ×2 (00:59→08:00)
[2021-01-26] MEDS: hydrALAZINE HCL 20 MG/ML VIAL IV PRN (01:00)
[2021-01-26 06:42] LABS: Hemoglobin 14.1 g/dL (14.0-18.0); Mean Corpuscular Hemoglobin 30.7 pg (25-34); Mean Corpuscular Hgb Conc 34.4 g/dL (32-36); Mean Corpuscular Volume 89.3 fL (80-100); Mean Platelet Volume 10.1 fL (7.4-10.4); Platelet Count 419 K/uL (130-400); RDW Coefficient of Variation 13.4 % (11.5-14.5); RDW Standard Deviation 43.5 fL (36.4-46.3); Red Blood Count 4.59 M/uL (4.7-6.1); White Blood Count 18.21 K/uL (4.8-10.8)
[2021-01-26 07:12] LABS: BUN Creatinine Ratio 33.1 (10-20); Calcium 8.7 mg/dl (8.5-10.1); Creatinine Clr Calc Pharmacy 101.9 ml/min; Est GFR (African American) 102.5 ml/min; Est GFR (Non-African American) 88.5 ml/min; Potassium 4.2 mmol/L (3.5-5.1)
[2021-01-26 07:26] LABS: Thyroid Stimulating Hormone 0.582 uIu/ml (0.300-4.500)
[2021-01-26] MEDS: dexAMETHasone 8 MG in SYRINGE 0 ML IV SCH (08:00)
[2021-01-26] MEDS: METOPROLOL SUCC 25MG EXT REL TAB PO SCH (08:00)
[2021-01-26] MEDS: VERAPAMIL HCL 180 MG TABCR PO SCH ×2 (08:01→20:28)
[2021-01-26] MEDS: lisinopril 20 MG TAB PO SCH ×2 (08:01→20:27)
--- NOTE | 2021-01-26 08:25 | Hospitalist Progress Note ---
Date of Service January 26, 2021 Assessment & Plan (1) Low back pain: Plan: Patient with a longstanding history of low back pain that has been progressively worse and subsequently leading to ambulatory dysfunction (had been walking/hiking 2 weeks ago) Presented to the ED yesterday given inability to walk CT scan showed large bulging disc at the level of L4-L5 MRI subsequently obtained showing no evidence of large disc herniation or central cord compromise of the central canal. Multilevel lumbosacral spondylosis without central canal compromise. Did have radiculopathy down the right lower extremity Started on steroids with significant adequate response, however no further improvement Pain control prn PT/OT continued -- rec for rehab at d/c 01/25 Patient with improvement in symptoms but still with some weakness B/L LE, worse on RLE reported. Had not been up out of bed walking yet at that time PT/OT consults pending to see mobility now that steroids on board and symptoms improving --> REC FOR REHAB. Continued on Dexamethasone 8mg IV daily Per discussion with Dr. Frias, if does ok with therapy, would prefer holding off surgery and d/c on steroid taper and can see in office for follow up or sooner if worsens to indicate need for surgery -- would give 8mg IV again tomorrow prior to d/c. BP elevated and utilizing hydralzine prn -- has been asymptomatic by may need hydralazine prn at d/c if BPs elevated 01/26 Still with weakness. dexamethasone continued but will decrease to see how symptoms are in hopes for titration towards d/c Discussion with Dr. Frias not explaining weakness of quads/hip flexors and rec additional testing and consultation with Neurology. No clonus to suggest thoracic issue at this time. No plans for surgery at this time Adding Lyme as well -- daughter reports patient was hiking in [place] and able to climb multiple stairs 2 weeks prior Will also repeat UA, however noted blood but no RBC. Will check CK, aldolase, LDH, consult Neurology Continued PT/OT, possible rehab at discharge. --> Lyme IgM, IgG positive. Patient never treated for Lyme in past --> started Doxy 100mg BID. GEOCHEMIST findings on exam to indicate need for Rocephin at this time but will await Neuro input (2) Lyme disease: Plan: + on initial testing, WB pending Doxy as above (3) Leg weakness: Plan: continues despite IV steroids per ortho spine, would investigate other causes Lyme + as above -- started doxy Aldolase, CK, repeat UA pending (4) Ambulatory dysfunction: Plan: See above PT/OT consults pending -- recs for rehab. CM following and to provide with list of facilities Additional lab testing as above Neurology on consult as well +Lyme as above, likely contributing (5) Leukocytosis: Plan: Likely steroid-induced. Patient was on Medrol Dosepak prior to presentation to the ED He is without fever +Lyme as above -- WB pending. Started Doxy evening 01/26 (6) Hypertension: Plan: BP elevated at 206/85 upon presentation into the ED Continues on his verapamil, lisinopril, and metoprolol BPs elevated but improved today, likely 2nd to steroid use Lasix 20mg x1 today, as he takes prn at home and with some edema in b/l LE today Hydralazine prn Continue to monitor Plan: continued inpatient stay Admission and Anticipated Discharge Date Admission Date: January 23, 2021 Subjective patient evaluated this morning still with continued issues with weakness in his left leg and giving out when he stands up radiating weakness from back through groin and down through legs. no fever, chills, chest pain, shortness of breath, abdominal pain, nausea or vomiting. Does have some LE edema. Now w stockings on. Will given 20mg PO lasix as takes prn at home as swelling likely from steroids. He would like to discuss with Dr Frias about proceeding with surgical correction of issue given lack of continued improvement. Would like daughter Anamaria involved with decision making as he has a hard time remembering all new information. Will pass along to Dr Frias who will see him today. Discussion with Dr Frias and patients symptoms on the right fitting however weakness of quads/hip flexors and left sided weakness not likely related to findings on imaging and suggest additional testing and consultation with Neurology. Review of Systems Review of Systems: All systems reviewed & are unremarkable except as noted in HPI & below Physical Exam Physical Exam: General: Resting comfortably up in chair looking out the window, NAD. HEENT: Head is AT/NC buccal mucosa is moist and pink Neck: No JVD. Negative hepatojugular reflex Cardiac: RRR without M/G/R Lungs: CTA without W/R/R Abdomen: Normoactive X4. Soft and nontender in all quadrants. MSK/Neuro: + straight leg raise. No tenderness to palpation along the lower spine. 4/5 R dorsiflexion, 5/5 L dorsiflexion, sensation intact with exception decreased to light touch L4-L5. quadriceps strength decreased but equal bilaterally Patient unable to stand without assistance due to weakness in hip extensors/quadriceps but without increased pain when doing so Skin: No obvious skin lesions or rashes Psych: Appropriate affect pleasant and cooperative Results & Data Results & Data ([facility]) Vital Signs (Past 12 Hours) Vital Signs Temp Pulse Pulse Resp BP BP Pulse Ox 01/26/21 08:07 66 01/26/21 07:51 36.7 C 59 L 16 159/74 H 96 01/25/21 22:35 36.7 C 65 16 181/86 H 97 Laboratory Results 01/26/21 01/26/21 01/26/21 Range/Units Unknown 14:59 14:59 WBC (4.8-10.8) K/uL RBC (4.7-6.1) M/uL Hgb (14.0-18.0) g/dL Hct (42-52) % MCV (80-100) fL MCH (25-34) pg MCHC (32-36) g/dL RDW Std Deviation (36.4-46.3) fL RDW Coeff of Khushboo (11.5-14.5) % Plt Count (130-400) K/uL MPV (7.4-10.4) fL Sodium (136-145) mmol/L Potassium (3.5-5.1) mmol/L Chloride (98-107) mmol/L Carbon Dioxide (21-32) mmol/L Anion Gap (3-11) BUN (7-18) mg/dl Creatinine (0.6-1.4) mg/dl Est Cr Clr Drug Dosing ml/min Est GFR ( Amer) ml/min Est GFR (Non-Af Amer) ml/min BUN/Creatinine Ratio (10-20) Glucose (70-99) mg/dl Calcium (8.5-10.1) mg/dl Lactate Dehydrogenase (87-241) U/L Total Creatine Kinase (39-308) U/L Aldolase Pending TSH (0.300-4.500) uIu/ml Urine Color Yellow Urine Appearance Clear (Clear) Urine pH 5.0 (4.5-7.5) Ur Specific [place] 1.010 (1.000-1.030) Urine Protein Negative (Negative) Urine Glucose (UA) Negative (Negative) Urine Ketones Negative (Negative) Urine Blood Negative (Negative) Urine Nitrite Negative (Negative) Urine Bilirubin Negative (Negative) Urine Urobilinogen Negative (Negative) Ur Leukocyte Esterase Negative (Negative) Lyme Disease IgG Ab (Negative) Lyme IgG (Western Blot) Pending Lyme IgG 18 kDa Band Pending Lyme IgG 23 kDa Band Pending Lyme IgG 28 kDa Band Pending Lyme IgG 30 kDa Band Pending Lyme IgG 39 kDa Band Pending Lyme IgG 41 kDa Band Pending Lyme IgG 45 kDa Band Pending Lyme IgG 58 kDa Band Pending Lyme IgG 66 kDa Band Pending Lyme IgG 93 kDa Band Pending Lyme IgM Ab (WB) Pending Lyme Disease IgM Ab (Negative) Lyme IgM 23 kDa Band Pending Lyme IgM 39 kDa Band Pending Lyme IgM 41 kDa Band Pending 01/26/21 01/26/21 01/26/21 Range/Units 14:59 14:59 14:59 WBC (4.8-10.8) K/uL RBC (4.7-6.1) M/uL Hgb (14.0-18.0) g/dL Hct (42-52) % MCV (80-100) fL MCH (25-34) pg MCHC (32-36) g/dL RDW Std Deviation (36.4-46.3) fL RDW Coeff of Khushboo (11.5-14.5) % Plt Count (130-400) K/uL MPV (7.4-10.4) fL Sodium (136-145) mmol/L Potassium (3.5-5.1) mmol/L Chloride (98-107) mmol/L Carbon Dioxide (21-32) mmol/L Anion Gap (3-11) BUN (7-18) mg/dl Creatinine (0.6-1.4) mg/dl Est Cr Clr Drug Dosing ml/min Est GFR ( Amer) ml/min Est GFR (Non-Af Amer) ml/min BUN/Creatinine Ratio (10-20) Glucose (70-99) mg/dl Calcium (8.5-10.1) mg/dl Lactate Dehydrogenase 244 H (87-241) U/L Total Creatine Kinase 94 (39-308) U/L Aldolase TSH (0.300-4.500) uIu/ml Urine Color Urine Appearance (Clear) Urine pH (4.5-7.5) Ur Specific [place] (1.000-1.030) Urine Protein (Negative) Urine Glucose (UA) (Negative) Urine Ketones (Negative) Urine Blood (Negative) Urine Nitrite (Negative) Urine Bilirubin (Negative) Urine Urobilinogen (Negative) Ur Leukocyte Esterase (Negative) Lyme Disease IgG Ab Positive A (Negative) Lyme IgG (Western Blot) Lyme IgG 18 kDa Band Lyme IgG 23 kDa Band Lyme IgG 28 kDa Band Lyme IgG 30 kDa Band Lyme IgG 39 kDa Band Lyme IgG 41 kDa Band Lyme IgG 45 kDa Band Lyme IgG 58 kDa Band Lyme IgG 66 kDa Band Lyme IgG 93 kDa Band Lyme IgM Ab (WB) Lyme Disease IgM Ab Positive A (Negative) Lyme IgM 23 kDa Band Lyme IgM 39 kDa Band Lyme IgM 41 kDa Band 01/26/21 01/26/21 Range/Units 05:38 05:38 WBC 18.21 H (4.8-10.8) K/uL RBC 4.59 L (4.7-6.1) M/uL Hgb 14.1 (14.0-18.0) g/dL Hct 41.0 L (42-52) % MCV 89.3 (80-100) fL MCH 30.7 (25-34) pg MCHC 34.4 (32-36) g/dL RDW Std Deviation 43.5 (36.4-46.3) fL RDW Coeff of Khushboo 13.4 (11.5-14.5) % Plt Count 419 H (130-400) K/uL MPV 10.1 (7.4-10.4) fL Sodium 133 L (136-145) mmol/L Potassium 4.2 (3.5-5.1) mmol/L Chloride 103 (98-107) mmol/L Carbon Dioxide 23 (21-32) mmol/L Anion Gap 7.0 (3-11) BUN 28 H (7-18) mg/dl Creatinine 0.86 D (0.6-1.4) mg/dl Est Cr Clr Drug Dosing 101.9 ml/min Est GFR ( Amer) 102.5 ml/min Est GFR (Non-Af Amer) 88.5 ml/min BUN/Creatinine Ratio 33.1 H (10-20) Glucose 111 H (70-99) mg/dl Calcium 8.7 (8.5-10.1) mg/dl Lactate Dehydrogenase (87-241) U/L Total Creatine Kinase (39-308) U/L Aldolase TSH 0.582 (0.300-4.500) uIu/ml Urine Color Urine Appearance (Clear) Urine pH (4.5-7.5) Ur Specific [place] (1.000-1.030) Urine Protein (Negative) Urine Glucose (UA) (Negative) Urine Ketones (Negative) Urine Blood (Negative) Urine Nitrite (Negative) Urine Bilirubin (Negative) Urine Urobilinogen (Negative) Ur Leukocyte Esterase (Negative) Lyme Disease IgG Ab (Negative) Lyme IgG (Western Blot) Lyme IgG 18 kDa Band Lyme IgG 23 kDa Band Lyme IgG 28 kDa Band Lyme IgG 30 kDa Band Lyme IgG 39 kDa Band Lyme IgG 41 kDa Band Lyme IgG 45 kDa Band Lyme IgG 58 kDa Band Lyme IgG 66 kDa Band Lyme IgG 93 kDa Band Lyme IgM Ab (WB) Lyme Disease IgM Ab (Negative) Lyme IgM 23 kDa Band Lyme IgM 39 kDa Band Lyme IgM 41 kDa Band PG Care Time/CCT Total # of Minutes Spent Total Time Spent with Patient: Total time spent is greater than 50% in coordination of care (as documented) at patient's floor/unit and/or counseling patient: Coding Level of Care Code 00564 Subseq Hosp Care Lvl 3 Diagnoses Low back pain M54.50 Ambulatory dysfunction R26.2 Leukocytosis D72.829 Hypertension I10 Leg weakness R29.898 Laterality: unspecified laterality Lyme disease A69.20 (1) Leg weakness Laterality: unspecified laterality Qualified Code(s): R29.898 - Other symptoms and signs involving the musculoskeletal system
[2021-01-26] MEDS: DOCUSATE SODIUM/SENNA 50/8.6MG TAB PO SCH (09:53)
[2021-01-26] MEDS: POLYETHYLENE (MIRALAX) 17 GM PACK PO SCH (09:53)
[2021-01-26] MEDS ORDERED: FUROSEMIDE 20 MG TAB PO ONE (10:31)
--- NOTE | 2021-01-26 14:41 | Orthopedic Progress Note ---
Date of Service January 26, 2021 Assessment & Plan (1) Leg weakness: Plan: I discussed today with the patient and his daughter reviewing his presentation. 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 This may account for some back pain and weakness to dorsiflexion extensor pollicis longus on the right but not to the bilateral proximal muscular weakness. I cannot quite explain the etiology of his weakness. Recommend further work-up possible neurology consultation. I would not recommend any surgery and his current presentation. Admission and Anticipated Discharge Date Admission Date: January 26, 2021 Subjective Patient continues to have marked difficulty standing. He is unable to walk. Denies any significant radiculopathy during our discussion today. Denies any numbness or tingling in the legs. This does describe intermittent back pain but not limiting at this time. Physical Exam Physical Exam: On physical exam he does demonstrate evidence of a 4/5 right dorsiflexion extensor hallucis longus compared to 5 5 on the left. Quadriceps appear to be symmetric and intact. Sensory symmetric and intact. However when I had the patient stand he was unable to do so without significant assistance. He appears to have deficits to the hip extensors and quadriceps. He is not in any acute distress or pain when standing. Results & Data ([facility]) Vital Signs (Past 12 Hours) Vital Signs Temp Pulse Pulse Resp BP Pulse Ox 01/26/21 08:07 66 01/26/21 07:51 36.7 C 59 L 16 159/74 H 96 (1) Leg weakness Laterality: unspecified laterality Qualified Code(s): R29.898 - Other symptoms and signs involving the musculoskeletal system
[2021-01-26 15:11] LABS: Appearance Urine Clear (Clear); Bilirubin Urine Negative (Negative); Blood Urine Negative (Negative); Color Urine Yellow; Glucose Urine UA Negative (Negative); Ketones Urine Negative (Negative); Leukocyte Esterase Urine Negative (Negative); Nitrite Urine Negative (Negative); Protein Urine Negative (Negative); Urobilinogen Urine Negative (Negative)
[2021-01-26 15:53] LABS: Lyme Ab IgG w/WB Rflx Positive (Negative); Lyme Ab IgM w/WB Rflx Positive (Negative)
[2021-01-26] MEDS: DOXYCYCLINE HYCLATE 100 MG CAP PO SCH (20:30)
[2021-01-27 06:31] LABS: Hematocrit (blood only) 42.3 % (42-52); Hemoglobin 14.5 g/dL (14.0-18.0); Mean Corpuscular Hemoglobin 30.7 pg (25-34); Mean Corpuscular Hgb Conc 34.3 g/dL (32-36); Mean Corpuscular Volume 89.6 fL (80-100); Platelet Count 383 K/uL (130-400); RDW Coefficient of Variation 13.3 % (11.5-14.5); RDW Standard Deviation 43.4 fL (36.4-46.3); Red Blood Count 4.72 M/uL (4.7-6.1)
[2021-01-27] MEDS: HYDROCODONE/ACETAMOPHEN 5/325MG TAB PO PRN ×2 (06:41→20:51)
[2021-01-27 07:03] LABS: Basophils # (auto) 0.01 K/uL (0-0.2); Echinocytes 1+; Immature Granulocytes # (auto) 0.14 K/uL (0.00-0.02); Immature Granulocytes % (auto) 0.6 %; Lymphocytes # (auto) 1.16 K/uL (1.2-3.4); Lymphocytes % (auto) 4.6 %; Monocytes # (auto) 1.29 K/uL (0.11-0.59); Monocytes % (auto) 5.1 %; Neutrophils % (auto) 89.7 %
[2021-01-27 07:17] LABS: Albumin Globulin Ratio 0.7 (0.9-2); Albumin Level 2.8 gm/dl (3.4-5.0); BUN Creatinine Ratio 33.3 (10-20); Bilirubin,Total 0.7 mg/dl (0.2-1); Calcium 8.7 mg/dl (8.5-10.1); Creatinine Clr Calc Pharmacy 92.2 ml/min; Est GFR (African American) 94.3 ml/min; Est GFR (Non-African American) 81.3 ml/min; Globulin 4.3 gm/dl (2.5-4.0); Magnesium 2.5 mg/dl (1.8-2.4); Potassium 4.3 mmol/L (3.5-5.1); Total Protein 7.1 gm/dl (6.4-8.2)
[2021-01-27] MEDS: dexAMETHasone 4 MG in SYRINGE 0 ML IV SCH (08:13)
[2021-01-27] MEDS: VERAPAMIL HCL 180 MG TABCR PO SCH ×2 (08:13→20:49)
[2021-01-27] MEDS: DOCUSATE SODIUM/SENNA 50/8.6MG TAB PO SCH (08:13)
[2021-01-27] MEDS: DOXYCYCLINE HYCLATE 100 MG CAP PO SCH ×2 (08:13→20:49)
[2021-01-27] MEDS: POLYETHYLENE (MIRALAX) 17 GM PACK PO SCH (08:13)
[2021-01-27] MEDS: METOPROLOL SUCC 25MG EXT REL TAB PO SCH (08:13)
[2021-01-27] MEDS: lisinopril 20 MG TAB PO SCH ×2 (08:13→20:49)
--- NOTE | 2021-01-27 08:29 | Hospitalist Progress Note ---
Date of Service January 27, 2021 Assessment & Plan (1) Low back pain: Plan: Patient with a longstanding history of low back pain that has been progressively worse and subsequently leading to ambulatory dysfunction (had been walking/hiking 2 weeks ago) Presented to the ED yesterday given inability to walk CT scan showed large bulging disc at the level of L4-L5 MRI subsequently obtained showing no evidence of large disc herniation or central cord compromise of the central canal. Multilevel lumbosacral spondylosis without central canal compromise. Did have radiculopathy down the right lower extremity Started on steroids with significant adequate response, however no further improvement Pain control prn PT/OT continued -- rec for rehab at d/c 01/25 Patient with improvement in symptoms but still with some weakness B/L LE, worse on RLE reported. Had not been up out of bed walking yet at that time PT/OT consults pending to see mobility now that steroids on board and symptoms improving --> REC FOR REHAB. Continued on Dexamethasone 8mg IV daily Per discussion with Dr. Frias, if does ok with therapy, would prefer holding off surgery and d/c on steroid taper and can see in office for follow up or sooner if worsens to indicate need for surgery -- would give 8mg IV again tomorrow prior to d/c. BP elevated and utilizing hydralzine prn -- has been asymptomatic by may need hydralazine prn at d/c if BPs elevated 01/26 Still with weakness. dexamethasone continued but will decrease to see how symptoms are in hopes for titration towards d/c Discussion with Dr. Frias not explaining weakness of quads/hip flexors and rec additional testing and consultation with Neurology. No clonus to suggest thoracic issue at this time. No plans for surgery at this time Adding Lyme as well -- daughter reports patient was hiking in [place] and able to climb multiple stairs 2 weeks prior Will also repeat UA, however noted blood but no RBC. Will check CK, aldolase, LDH, consult Neurology Continued PT/OT, possible rehab at discharge. --> Lyme IgM, IgG positive. Patient never treated for Lyme in past --> started Doxy 100mg BID. DENSITY CONTROL PUNCHER findings on exam to indicate need for Rocephin at this time but will await Neuro input 01/27 -- Worsening LE weakness, now with absent DTR and ascending weakness. Did have recent URI and received his COVID vaccine days prior to admission ([facility]) Neurology consulted -- concerns for GBS. Continue doxy for lyme and await WB, however doesn't fit classic lyme picture CT head w/o as not able to obtain MRI prior to LP -- ok'd with Neurology. Spoke with anesthesia as no one able to complete and LP tablet broken in radiology --> thankfully Dr Muse able to assist No respiratory issues at this time. Additional lab testing per Neurology. Will also need outpatient EMG testing --> obtaining MRI Thoracic and Cervical Spine for further investigation CSF studies pending --> initially WBC 0, elevated glucose 74 and protein significantly elevated 143 leaning more towards GBS Initiated IVIG x 5 days, first dose 01/27 If not responding to IVIG will need to consider transfer for plasmapheresis but hopefully will have response Continue to monitor response (2) Lyme disease: Plan: + on initial testing, WB pending Doxy as above (3) Leg weakness: Plan: continues despite IV steroids per ortho spine, would investigate other causes Lyme + as above -- started doxy Aldolase, CK wnl repeat UA without infxn (4) Ambulatory dysfunction: Plan: See above PT/OT consults pending -- recs for rehab. CM following and to provide with list of facilities Additional lab testing as above Neurology on consult as well +Lyme as above, likely contributing but not fitting primary issue (5) Leukocytosis: Plan: Likely steroid-induced. Patient was on Medrol Dosepak prior to presentation to the ED He is without fever +Lyme as above -- WB pending. Started Doxy evening 01/26 (6) Hypertension: Plan: BP elevated at 206/85 upon presentation into the ED Continues on his verapamil, lisinopril, and metoprolol BPs elevated but improved today, likely 2nd to steroid use Lasix 20mg x1 today, as he takes prn at home and with some edema in b/l LE today Hydralazine prn Continue to monitor Plan: Continue doxy for Lyme -- monitor WB Neuro on consult IVIG MRIs pending of spine Continue to monitor Admission and Anticipated Discharge Date Admission Date: January 26, 2021 Subjective patient evaluated this morning doing about the same continued weakness seen by neurology and discussed possible GBS from recent covid vaccination which he received before becoming hospitalized and will obtain MRI and LP study as well as additional lab testing. Discussed if + would tx with IVIG and if no improvement would need to consider tx for plasmaphoresis however will monitor response if positive to IVIG first. continuing tx for Lyme as well while awaiting WB. no fever, chills, chest pain, shortness of breath, abdominal pain, nausea or vomiting at this time. Review of Systems Review of Systems: All systems reviewed & are unremarkable except as noted in HPI & below Physical Exam Physical Exam: General: Resting comfortably in bed, NAD HEENT: atraumatic, normocephalic, no meningeal signs, EOMI, pupils equal and reactive, no ptosis Neck: trachea midline without deviation Resp: CTAB, no w/c/r, on room air, no accessory muscle use, not tachypneic CV: RRR, no m/r/g, 1+ b/l LE edema ABd: +BS, non-tender MSK/Neuro: moves all extremities however decreased strength b/l LE , decreased DTRs, on the right, absent R patella/L patella, b/l ankle. negative babinski not able to stand by self due to weakness Skin: no obvious rashes or lesions Psych: Alert, oriented to person, place, time but occasionally forgetful Results & Data Results & Data ([facility]) Vital Signs (Past 12 Hours) Vital Signs Temp Pulse Resp BP Pulse Ox 01/27/21 07:47 36.6 C 66 16 162/70 H 96 01/26/21 22:21 36.9 C 73 18 151/91 H 92 Laboratory Results 01/27/21 01/27/21 01/27/21 Range/Units Unknown Unknown Unknown WBC (4.8-10.8) K/uL RBC (4.7-6.1) M/uL Hgb (14.0-18.0) g/dL Hct (42-52) % MCV (80-100) fL MCH (25-34) pg MCHC (32-36) g/dL RDW Std Deviation (36.4-46.3) fL RDW Coeff of Khushboo (11.5-14.5) % Plt Count (130-400) K/uL MPV (7.4-10.4) fL Immature Gran % (Auto) % Neut % (Auto) % Lymph % (Auto) % Hartley % (Auto) % Eos % (Auto) % Baso % (Auto) % Neut # (Auto) (1.4-6.5) K/uL Lymph # (Auto) (1.2-3.4) K/uL Hartley # (Auto) (0.11-0.59) K/uL Eos # (Auto) (0-0.5) K/uL Baso # (Auto) (0-0.2) K/uL Immature Gran # (Auto) (0.00-0.02) K/uL Echinocytes Sodium (136-145) mmol/L Potassium (3.5-5.1) mmol/L Chloride (98-107) mmol/L Carbon Dioxide (21-32) mmol/L Anion Gap (3-11) BUN (7-18) mg/dl Creatinine (0.6-1.4) mg/dl Est Cr Clr Drug Dosing ml/min Est GFR ( Amer) ml/min Est GFR (Non-Af Amer) ml/min BUN/Creatinine Ratio (10-20) Glucose (70-99) mg/dl Calcium (8.5-10.1) mg/dl Magnesium (1.8-2.4) mg/dl Total Bilirubin (0.2-1) mg/dl AST (15-37) U/L ALT (12-78) U/L Alkaline Phosphatase (45-117) U/L Total Protein (6.4-8.2) gm/dl Albumin (3.4-5.0) gm/dl Globulin (2.5-4.0) gm/dl Albumin/Globulin Ratio (0.9-2) Fld Lyme DNA (PCR) Cancelled Fluid Comment CSF Appearance Clear CSF Color Colorless Xanthrochromic No xanthochromia CSF WBC 0 (0-5) /uL CSF RBC 0 (0-) /uL CSF Cell Count Tube # 3 CSF Chemistry Tube # CSF Glucose (40-70) mg/dl CSF Lactate CSF Total Protein CSF Albumin CSF IgG CSF IgG Index CSF IgG Synthesis Rate CSF Myelin Basic Protein CSF IgG Oligoclonal Bnd CSF VDRL Cancelled IgG Albumin (KATERIN) Acetylchol Rcpt Bind Ab Lyme Specimen Source Cancelled CMV Specimen Source CMV Qnt PCR IU/mL CMV Qnt PCR log IU/mL Enterovirus Source Enterovirus RNA RT-PCR Herpes Virus Source HSV I DNA PCR HSV II DNA PCR Herpesvirus 6 Source HHV-6 DNA (PCR) Varicella-Zoster Source VZV DNA (PCR) 01/27/21 01/27/21 01/27/21 Range/Units Unknown Unknown Unknown WBC (4.8-10.8) K/uL RBC (4.7-6.1) M/uL Hgb (14.0-18.0) g/dL Hct (42-52) % MCV (80-100) fL MCH (25-34) pg MCHC (32-36) g/dL RDW Std Deviation (36.4-46.3) fL RDW Coeff of Khushboo (11.5-14.5) % Plt Count (130-400) K/uL MPV (7.4-10.4) fL Immature Gran % (Auto) % Neut % (Auto) % Lymph % (Auto) % Hartley % (Auto) % Eos % (Auto) % Baso % (Auto) % Neut # (Auto) (1.4-6.5) K/uL Lymph # (Auto) (1.2-3.4) K/uL Hartley # (Auto) (0.11-0.59) K/uL Eos # (Auto) (0-0.5) K/uL Baso # (Auto) (0-0.2) K/uL Immature Gran # (Auto) (0.00-0.02) K/uL Echinocytes Sodium (136-145) mmol/L Potassium (3.5-5.1) mmol/L Chloride (98-107) mmol/L Carbon Dioxide (21-32) mmol/L Anion Gap (3-11) BUN (7-18) mg/dl Creatinine (0.6-1.4) mg/dl Est Cr Clr Drug Dosing ml/min Est GFR ( Amer) ml/min Est GFR (Non-Af Amer) ml/min BUN/Creatinine Ratio (10-20) Glucose (70-99) mg/dl Calcium (8.5-10.1) mg/dl Magnesium (1.8-2.4) mg/dl Total Bilirubin (0.2-1) mg/dl AST (15-37) U/L ALT (12-78) U/L Alkaline Phosphatase (45-117) U/L Total Protein (6.4-8.2) gm/dl Albumin (3.4-5.0) gm/dl Globulin (2.5-4.0) gm/dl Albumin/Globulin Ratio (0.9-2) Fld Lyme DNA (PCR) Fluid Comment CSF Appearance CSF Color Xanthrochromic CSF WBC (0-5) /uL CSF RBC (0-) /uL CSF Cell Count Tube # CSF Chemistry Tube # 1 CSF Glucose 74 H (40-70) mg/dl CSF Lactate Cancelled CSF Total Protein 143.9 H Cancelled CSF Albumin CSF IgG CSF IgG Index CSF IgG Synthesis Rate CSF Myelin Basic Protein CSF IgG Oligoclonal Bnd CSF VDRL IgG Albumin (KATERIN) Acetylchol Rcpt Bind Ab Lyme Specimen Source CMV Specimen Source CMV Qnt PCR IU/mL CMV Qnt PCR log IU/mL Enterovirus Source Enterovirus RNA RT-PCR Herpes Virus Source HSV I DNA PCR HSV II DNA PCR Herpesvirus 6 Source HHV-6 DNA (PCR) Varicella-Zoster Source VZV DNA (PCR) 01/27/21 01/27/21 01/27/21 Range/Units 14:44 14:44 05:44 WBC (4.8-10.8) K/uL RBC (4.7-6.1) M/uL Hgb (14.0-18.0) g/dL Hct (42-52) % MCV (80-100) fL MCH (25-34) pg MCHC (32-36) g/dL RDW Std Deviation (36.4-46.3) fL RDW Coeff of Khushboo (11.5-14.5) % Plt Count (130-400) K/uL MPV (7.4-10.4) fL Immature Gran % (Auto) % Neut % (Auto) % Lymph % (Auto) % Hartley % (Auto) % Eos % (Auto) % Baso % (Auto) % Neut # (Auto) (1.4-6.5) K/uL Lymph # (Auto) (1.2-3.4) K/uL Hartley # (Auto) (0.11-0.59) K/uL Eos # (Auto) (0-0.5) K/uL Baso # (Auto) (0-0.2) K/uL Immature Gran # (Auto) (0.00-0.02) K/uL Echinocytes Sodium 135 L (136-145) mmol/L Potassium 4.3 (3.5-5.1) mmol/L Chloride 104 (98-107) mmol/L Carbon Dioxide 23 (21-32) mmol/L Anion Gap 8.0 (3-11) BUN 32 H (7-18) mg/dl Creatinine 0.95 (0.6-1.4) mg/dl Est Cr Clr Drug Dosing 92.2 ml/min Est GFR ( Amer) 94.3 ml/min Est GFR (Non-Af Amer) 81.3 ml/min BUN/Creatinine Ratio 33.3 H (10-20) Glucose 106 H (70-99) mg/dl Calcium 8.7 (8.5-10.1) mg/dl Magnesium 2.5 H (1.8-2.4) mg/dl Total Bilirubin 0.7 (0.2-1) mg/dl AST 14 L (15-37) U/L ALT 29 (12-78) U/L Alkaline Phosphatase 65 (45-117) U/L Total Protein 7.1 (6.4-8.2) gm/dl Albumin 2.8 L (3.4-5.0) gm/dl Globulin 4.3 H (2.5-4.0) gm/dl Albumin/Globulin Ratio 0.7 L (0.9-2) Fld Lyme DNA (PCR) Pending Fluid Comment CSF Appearance CSF Color Xanthrochromic CSF WBC (0-5) /uL CSF RBC (0-) /uL CSF Cell Count Tube # CSF Chemistry Tube # CSF Glucose (40-70) mg/dl CSF Lactate CSF Total Protein CSF Albumin Pending CSF IgG Pending CSF IgG Index Pending CSF IgG Synthesis Rate Pending CSF Myelin Basic Protein Pending CSF IgG Oligoclonal Bnd Pending CSF VDRL Pending IgG Pending Albumin (KATERIN) Pending Acetylchol Rcpt Bind Ab Pending Lyme Specimen Source Pending CMV Specimen Source Pending CMV Qnt PCR IU/mL Pending CMV Qnt PCR log IU/mL Pending Enterovirus Source Pending Enterovirus RNA RT-PCR Pending Herpes Virus Source Pending HSV I DNA PCR Pending HSV II DNA PCR Pending Herpesvirus 6 Source Pending HHV-6 DNA (PCR) Pending Varicella-Zoster Source Pending VZV DNA (PCR) Pending 01/27/21 Range/Units 05:44 WBC 25.30 H (4.8-10.8) K/uL RBC 4.72 (4.7-6.1) M/uL Hgb 14.5 (14.0-18.0) g/dL Hct 42.3 (42-52) % MCV 89.6 (80-100) fL MCH 30.7 (25-34) pg MCHC 34.3 (32-36) g/dL RDW Std Deviation 43.4 (36.4-46.3) fL RDW Coeff of Khushboo 13.3 (11.5-14.5) % Plt Count 383 (130-400) K/uL MPV 10.0 (7.4-10.4) fL Immature Gran % (Auto) 0.6 % Neut % (Auto) 89.7 % Lymph % (Auto) 4.6 % Hartley % (Auto) 5.1 % Eos % (Auto) 0.0 % Baso % (Auto) 0.0 % Neut # (Auto) 22.70 H (1.4-6.5) K/uL Lymph # (Auto) 1.16 L (1.2-3.4) K/uL Hartley # (Auto) 1.29 H (0.11-0.59) K/uL Eos # (Auto) 0.00 (0-0.5) K/uL Baso # (Auto) 0.01 (0-0.2) K/uL Immature Gran # (Auto) 0.14 H (0.00-0.02) K/uL Echinocytes 1+ Sodium (136-145) mmol/L Potassium (3.5-5.1) mmol/L Chloride (98-107) mmol/L Carbon Dioxide (21-32) mmol/L Anion Gap (3-11) BUN (7-18) mg/dl Creatinine (0.6-1.4) mg/dl Est Cr Clr Drug Dosing ml/min Est GFR ( Amer) ml/min Est GFR (Non-Af Amer) ml/min BUN/Creatinine Ratio (10-20) Glucose (70-99) mg/dl Calcium (8.5-10.1) mg/dl Magnesium (1.8-2.4) mg/dl Total Bilirubin (0.2-1) mg/dl AST (15-37) U/L ALT (12-78) U/L Alkaline Phosphatase (45-117) U/L Total Protein (6.4-8.2) gm/dl Albumin (3.4-5.0) gm/dl Globulin (2.5-4.0) gm/dl Albumin/Globulin Ratio (0.9-2) Fld Lyme DNA (PCR) Fluid Comment CSF Appearance CSF Color Xanthrochromic CSF WBC (0-5) /uL CSF RBC (0-) /uL CSF Cell Count Tube # CSF Chemistry Tube # CSF Glucose (40-70) mg/dl CSF Lactate CSF Total Protein CSF Albumin CSF IgG CSF IgG Index CSF IgG Synthesis Rate CSF Myelin Basic Protein CSF IgG Oligoclonal Bnd CSF VDRL IgG Albumin (KATERIN) Acetylchol Rcpt Bind Ab Lyme Specimen Source CMV Specimen Source CMV Qnt PCR IU/mL CMV Qnt PCR log IU/mL Enterovirus Source Enterovirus RNA RT-PCR Herpes Virus Source HSV I DNA PCR HSV II DNA PCR Herpesvirus 6 Source HHV-6 DNA (PCR) Varicella-Zoster Source VZV DNA (PCR) Diagnostic Findings Head CT 01/27/21 11:00 CT OF THE HEAD WITHOUT CONTRAST CLINICAL HISTORY: concerns for GBS, LE weakness COMPARISON STUDY: No previous studies for comparison. CT DOSE: 1400.53 mGy.cm TECHNIQUE: Helical axial images of the head were obtained without IV contrast. Automated exposure control was utilized for the study. A dose lowering technique was utilized adhering to the principles of ALARA. FINDINGS: No acute intracranial hemorrhage, midline shift or mass effect is present. Ventricular system is unremarkable. Basal cisterns are patent. There are no extra-axial collections. White matter hypodensities suggest moderate small vessel disease. There are no findings to suggest acute dural sinus thrombosis or acute territorial infarct. There are no significant calvarial abnormalities. There is mild polypoid mucosal thickening of the bilateral maxillary sinuses. IMPRESSION: No acute intracranial findings. ACT 112: Negative or not required by law. Electronically signed by: Sanjiv Faith M.D. 01/27/2021 12:25 PM PG Care Time/CCT Total # of Minutes Spent Total Time Spent with Patient: Total time spent is greater than 50% in coordination of care (as documented) at patient's floor/unit and/or counseling patient: Prolonged Care Time 120 minutes coordinating and reviewing with neurology, ortho spine, radiology, coordination to find available person to perform LP and additional trips to patients room for review of plan and updating son at bedside Coding Level of Care Code 12366 Subseq Hosp Care Lvl 3 (25 - SIGNIFICANT, SEPARATELY IDENTIFIABLE ) Diagnoses Low back pain M54.50 Lyme disease A69.20 Leg weakness R29.898 Laterality: unspecified laterality Ambulatory dysfunction R26.2 Leukocytosis D72.829 Hypertension I10 (1) Leg weakness Laterality: unspecified laterality Qualified Code(s): R29.898 - Other symptoms and signs involving the musculoskeletal system
[2021-01-27] MEDS ORDERED: FUROSEMIDE 40 MG TAB PO ONE (09:43)
--- NOTE | 2021-01-27 10:48 | Neurology Consultation ---
Date of Consultation January 27, 2021 Assessment & Plan (1) Weakness: Profound subacute symmetric lower extremity weakness with associated loss of deep tendon reflexes, mild associated distal paresthesias. 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 Potential triggering events for this patient include receiving the Pfizer COVID-19 booster vaccination prior to symptom onset as well as a nonspecific upper respiratory infection. I agree that his degree of lower extremity weakness is not consistent with the mild spinal stenosis observed on recent MRI. The significance of the positive Lyme screen at this point in time is unclear. His presentation would be atypical for Lyme disease. Patient will need further evaluation for suspected Guillain-Evans syndrome. Would recommend cranial imaging, MRI of the brain, followed by lumbar puncture, evaluate for albuminocytologic dissociation. Note, however, the patient has been receiving corticosteroids which may have some influence on CSF analysis. Consideration of other neuromuscular disorder should also be made including inflammatory myopathy, neuromuscular junction disorder (Lambert-Eaton myasthenic syndrome?) or toxic or metabolic myopathy. I doubt he has a corticosteroid induced myopathy due to his recent exposure to a Medrol Dosepak. I doubt he has myasthenia gravis as he does not have ptosis or diplopia although LEMS as above may not be completely excluded. If patient's CSF analysis reveals albuminocytologic dissociation would recommend treatment with IVIG. IVIG given at 0.4 g/kg/day for 5 days. Would also recommend outpatient EMG with repetitive stimulation. Check acetylcholine receptor antibodies as well as LEMS antibody (P/Q-type VGCC). Again, please obtain brain MRI prior to obtaining lumbar puncture. Also include gadolinium enhanced MRI of the cervical and thoracic spine. Also, would continue with doxycycline for possible Lyme disease, follow-up with results of Western blot when available. Patient's clinical presentation would be atypical for Lyme disease, however. History of Present Illness Reason for Consultation: weakness Requesting Physician: HANY Sanchez Attending Physician: Gerardo Mcdonald History of Present Illness The patient is a 70-year-old male who presented to the emergency department on January 23 with chief complaint of low back pain which began about 1 week prior. He also complains of an associated feeling of weakness, especially the legs. He does endorse a history of chronic low back pain. He did have a lumbar spine MRI completed as well as a consultation with orthopedics, Dr. Frias. Although he does have multilevel lumbar spinal stenosis and disc protrusions with a probable right L5 radiculopathy, his degree of weakness was felt to be significantly out of proportion to any objective abnormalities on his imaging. In fact, during the course of this hospitalization, his weakness has progressed to the point that he is unable to get up out of bed on his own. He has significant proximal bilateral lower extremity weakness. He also complains of some distal paresthesias, fingertips and toes. Lyme screening completed yesterday was positive for IgG and IgM, Western blot pending. He does spend a significant amount of time outdoors in wooded areas and suspects that he is at increased risk for Lyme disease. However, he denies experiencing obvious tick bite, bull's-eye rash, diffuse arthralgias, or facial weakness. He has been started on doxycycline. Upon further questioning, patient remarks that he received the [employer] COVID-19 booster vaccination a few days prior to symptom onset. He also remarks that he had a nonspecific upper respiratory/flulike illness that persisted for about 5 days, prior to symptom onset. Allergies Allergy/AdvReac Type Severity Reaction Status Date / Time No Known Allergies Allergy Unverified 01/23/21 08:31 Home Medications Medication Instructions Recorded Confirmed Type furosemide 20 mg tablet 20 mg PO DAILY PRN 01/23/21 01/23/21 History hydrocodone 5 mg-acetaminophen 325 1 tab PO TID PRN 01/23/21 01/23/21 History mg tablet lisinopril 20 mg tablet 20 mg PO BID 01/23/21 01/23/21 History methylprednisolone 4 mg tablets in 4 mg PO UD 01/23/21 01/23/21 History a dose pack metoprolol succinate 25 mg 25 mg PO DAILY 01/23/21 01/23/21 History tablet,extended release 24 hr potassium chloride 10 mEq 10 meq PO DAILY PRN 01/23/21 01/23/21 History tablet,extended release verapamil 180 mg tablet,extended 180 mg PO BID 01/23/21 01/23/21 History release Patient History Medical History Chronic lower back pain History of smoking Hypertension Surgical History History of tibial fracture With surgical repair Family History Other Family history non-contributory Social History Smoking Status: Former smoker Do You Dip or Chew Tobacco: Yes; Tobacco Cessation Education Requested by Patient: No Hx Alcohol Use: Yes Alcohol type: beer Hx Substance Use: No Preferred Language: Albanian Communication Ability: Effective Net Technical Architect Required: No Beliefs That Will Affect Care: None marital status: Current Living Situation: Alone How many Children do You have: 4 Other Information That Helps Us Care for You: No Feels Safe at Home: No Is there a partner from a previous relationship who is making you feel unsafe now?: No Any Concerns about Your Family Situation: No Would You Like to Speak to Someone About Your Situation: No Safety Concerns: Feels Safe At This Time Assistive Devices: Glasses and Walker Review of Systems Constitutional: + body aches, + fatigue and + weakness; no fever and no chills Eyes: no blind spots and no diplopia Ear, Nose, Mouth, Throat: no ear pain and no hearing loss Respiratory: no cough and no dyspnea Cardiovascular: no chest pain and no palpitations Gastrointestinal: no constipation and no diarrhea/loose stools Genitourinary: no urinary incontinence or no urinary urgency Musculoskeletal: + back pain and + joint pain; no myalgia, no muscle weakness and no muscle atrophy Integumentary: no rash and no lesions Neurologic: as per Subjective / HPI, + gait abnormality, + localized weakness and + paresthesia; no headache(s) and no confusion Psychiatric: no behavioral changes, no depression, no abnormal sleep pattern and no anxiety Hematologic / Lymphatic: no easy bruising and no lymphadenopathy Exam (Neuro) Constitutional: well developed and well nourished; no acute distress Eyes: normal visual lewis by confrontation, PERRL, normal accommodation and EOM intact bilaterally; no fundoscopic abnormality, no nystagmus and no papilledema Cardiovascular: Vessels: normal carotid upstroke; no carotid bruit Neurologic: Oriented to:: Person, Place and Time Memory: Short Term Intact and Remote Intact Attention: Span Intact and Concentration Intact Language: Naming Objects and Repeating Phrases Speech Fluency: negative Dysarthria Speech Aphasia: negative Aphasia Fund of Knowledge: Current Macey nts, Past History and Vocabulary Cranial Nerves: Normal II (Visual lewis full to confrontation, visual acuity normal), III, IV, (Pupils equal round reactive to light and accommodation, eye movements normal), V (Facial sensation intact), VII (There is no facial droop or weakness), VIII (Hearing intact), IX, X (Palate elevates to midline), XI (Shoulder shrug intact) and XII (Tongue protrudes to midline) Motor Strength: negative Normal Lower Extremities, Normal Upper Extremities or Pronator Drift Motor Tone: Normal Lower Extremities and Normal Upper Extremities Muscle Bulk/Involuntary Movements: No Involuntary Movements; negative Muscle Atrophy Sensation: Light Touch Intact, Pain/Temperature Intact and Proprioception Intact; negative Vibration Intact Coordination: Limited Balance and Heel-Rush Abnormal; negative Dysdiadochokinesia or Finger-Nose Abnormal Deep Tendon Reflexes: Rt Triceps: 1+, Lt Triceps: 1+, Rt Biceps: 1+, Lt Biceps: 1+, Rt Brachioradialis: 1+, Lt Brachioradialis: 1+, Rt Patellar: 0, Lt Patellar: 0, Rt Ankle: 0 and Lt Ankle: 0 Special Tests: negative Babinski Present Details: Patient unable to stand up out of bed due to significant bilateral proximal lower extremity weakness. Gait cannot be evaluated due to profound lower extremity weakness. Results & Data ([facility]) Vital Signs (Past 12 Hours) Vital Signs Temp Pulse Resp BP Pulse Ox 01/27/21 07:47 36.6 C 66 16 162/70 H 96 Laboratory Results WBC 25.30, hemoglobin 14.5, hematocrit 42.3, platelet count 383, sodium 135, potassium 4.3, BUN 32, creatinine 0.95, glucose 106, calcium 8.7, magnesium 2.5, AST 14, ALT 29, total CK 94, TSH 0.582, Lyme IgG and IgM positive, Western blot pending Diagnostic Findings Lumbar spine MRI completed January 23 without IV contrast reviewed. No large disc herniations or significant compromise of the central canal. There is multilevel lumbosacral spondylosis. I reviewed the images as well as the radiologist's interpretation of this test. Coding Level of Care Code 18299 Initial Inpt Care Lvl 3 Diagnoses Weakness R53.1
[2021-01-27] MEDS ORDERED: cefTRIAXone SODIUM 2,000 MG in DEXTROSE 5% 50 ML IV SCH (11:00)
--- NOTE | 2021-01-27 12:26 | CT Scan Report ---
CT OF THE HEAD WITHOUT CONTRAST CLINICAL HISTORY: concerns for GBS, LE weakness COMPARISON STUDY: No previous studies for comparison. CT DOSE: 1400.53 mGy.cm TECHNIQUE: Helical axial images of the head were obtained without IV contrast. Automated exposure con trol was utilized for the study. A dose lowering technique was utilized adhering to the principles o f ALARA. FINDINGS: No acute intracranial hemorrhage, midline shift or mass effect is present. Ventricular syst em is unremarkable. Basal cisterns are patent. There are no extra-axial collections. White matter hyp odensities suggest moderate small vessel disease. There are no findings to suggest acute dural sinus thrombosis or acute territorial infarct. There are no significant calvarial abnormalities. There is m ild polypoid mucosal thickening of the bilateral maxillary sinuses. IMPRESSION: No acute intracranial findings. ACT 112: Negative or not required by law. Electronically signed by: Sanjiv Faith M.D. 01/27/2021 12:25 PM
--- NOTE | 2021-01-27 15:17 | Communication Note ---
Date of Service: January 27, 2021 Asked by medical staff to do diagnostic LP in pt with acute onset LE weakness, unexplained by other testing. CT head was done revealing no mass effect, or sign of elevated ICP. Medical history otherwise non-contributory. Discussed risk vs benefit with pt. Questions answered and he signed informed consent. In sitting position, lumbar skin prepped with Duraprep and draped sterile. Local 1% lido to skin. 20g Quinke needle advanced til +CSF at L3-4 after unable at L4-5. 2cc clear fluid collected into each of 4 test tubes in sterile manner and labeled for transport to lab. Discussed with Hospitalist staff who agreed to order appropriate testing and follow-up on results. Pt tolerated well and was returned to recumbent position. Left in care of med-surg staff.
[2021-01-27 15:18] LABS: Appearance CSF Clear; CSF Count Tube # 3; CSF Xanthrochromic No xanthochromia; Color CSF Colorless; Red Blood Cell CSF (A) 0 /uL (0-); White Blood Cell CSF (A) 0 /uL (0-5)
[2021-01-27 15:31] LABS: Total Protein CSF 143.9 mg/dl (15-45)
[2021-01-27] MEDS ORDERED: IMMUNE GLOBULIN (HUMAN) SOLN IV SCH (16:30)
[2021-01-27] MEDS ORDERED: GADOBUTROL 65ML VIAL IV ONE (19:24)
--- NOTE | 2021-01-27 20:08 | Magnetic Resonance Report ---
MR cervical spine wo/w con CLINICAL HISTORY: 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 Back pain and bilateral leg weakness COMPARISON: None. TECHNIQUE: Multiplanar multisequence images of the Cervical Spine were performed were performed with and without IV contrast. Contrast Volume: 10.9 ml of Gadavist FINDINGS: There is no evidence for vertebral body fracture. The heights of the vertebral bodies are maintained. The vertebral bodies are in anatomic alignment. Homogeneous marrow signal seen without evidence for marrow edema or marrow replacement. The odontoid is intact and the atlantoaxial articulation is withi n normal limits. The craniocervical junction is within normal limits. Homogeneous signal is seen with in the spinal cord. There is no abnormal enhancement following contrast administration. C2-3: The disc space height is maintained. There are no focal disc protrusions or extrusions identi fied. The spinal canal is patent with no encroachment upon the spinal cord. The neural foramen are p atent bilaterally. There is no evidence for nerve root encroachment. The apophyseal joints are within normal limits. C3-4: The disc space height is maintained. There are no focal disc protrusions or extrusions identi fied. The spinal canal is patent with no encroachment upon the spinal cord. The neural foramen are p atent bilaterally. There is no evidence for nerve root encroachment. The apophyseal joints are within normal limits. C4-5: There is moderate disc space narrowing with disc/osteophyte complex present. There are no foc al disc protrusions or extrusions identified. There is minimal encroachment upon the spinal canal an teriorly without compression upon the spinal cord. There is decreased CSF surrounding the spinal cord with the findings characteristic of mild central canal stenosis. The neural foramen are patent bilat erally. There is no evidence for nerve root encroachment. The apophyseal joints are within normal arce its. C5-6: There is moderate disc space narrowing with central bulging of the annulus present. There are no focal disc protrusions or extrusions identified. The spinal canal is patent with no encroachment upon the spinal cord. The neural foramen are patent bilaterally. There is no evidence for nerve root encroachment. The apophyseal joints are within normal limits. C6-7: There is moderate disc space narrowing with mild bulging of the annulus present. There are no focal disc protrusions or extrusions identified. The spinal canal is patent with no encroachment up on the spinal cord. The neural foramen are patent bilaterally. There is no evidence for nerve root en croachment. The apophyseal joints are within normal limits. C7-T1: The disc space height is maintained. There are no focal disc protrusions or extrusions ident ified. The spinal canal is patent with no encroachment upon the spinal cord. The neural foramen are patent bilaterally. There is no evidence for nerve root encroachment. The apophyseal joints are withi n normal limits. IMPRESSION: 1. Bulging annuli at C4-5, C5-6 and C6-7 with evidence for mild central canal stenosis at C4-5. 2. No disc protrusion/herniation or focal nerve root impingement. 3. No abnormal enhancement following contrast administration. ACT 112: Negative or not required by law. Electronically signed by: Pastor Serrano M.D. 01/27/2021 8:07 PM
[2021-01-27] MEDS: MoRPHine SULFATE 4 MG/ML 1 ML CARP\\VIAL IV PRN (20:13)
--- NOTE | 2021-01-27 20:38 | Magnetic Resonance Report ---
MR thoracic spine wo/w con CLINICAL HISTORY: concerns for GBS post-vaccine. Back pain and bilateral leg weakness COMPARISON: None. TECHNIQUE: Multiplanar multisequence images of the Thoracic Spine were performed with and without IV contrast. Contrast Volume: 10.9 ml of Gadavist FINDINGS: Bones: There is no evidence for an acute vertebral body fracture. Minimal old anterior wedg e deformities are present from T7 through T11. The heights of the remaining thoracic vertebral bodies are maintained. The vertebral bodies are in anatomic alignment. Homogeneous marrow signal is seen wi thout evidence for marrow edema or marrow replacement. There is no abnormal marrow enhancement. Disc spaces: There is mild to moderate disc space narrowing present from T6 through T12 There are no focal disc protrusions or herniations identified. There is no significant spinal canal stenosis or ne ural foraminal narrowing present. Soft tissues: The thoracic spinal cord appears normal. There are no paraspinal fluid collections or s oft tissue masses identified. No abnormal enhancement is identified. IMPRESSION: Minimal old anterior wedge deformities and degenerative disc disease. No acute pathology or evidence for abnormal spinal cord enhancement. Electronically signed by: Pastor Serrano M.D. 01/27/2021 8:37 PM
[2021-01-27] MEDS: IMMUN GLOBG(IGG)/MALT/IGA OV50 100 ML IV SCH ×2 (20:40→22:20)
[2021-01-27] MEDS: ENOXAPARIN INJ 40 MG/0.4 ML SYR SQ SCH (20:51)
[2021-01-28] MEDS: MoRPHine SULFATE 4 MG/ML 1 ML CARP\\VIAL IV PRN ×2 (00:06→03:29)
[2021-01-28] MEDS: IMMUN GLOBG(IGG)/MALT/IGA OV50 100 ML IV SCH ×6 (00:20→23:43)
[2021-01-28] MEDS: HYDROCODONE/ACETAMOPHEN 5/325MG TAB PO PRN ×2 (02:28→13:06)
[2021-01-28 06:55] LABS: Hematocrit (blood only) 43.3 % (42-52); Hemoglobin 14.7 g/dL (14.0-18.0); Mean Corpuscular Hemoglobin 30.8 pg (25-34); Mean Corpuscular Hgb Conc 33.9 g/dL (32-36); Mean Corpuscular Volume 90.6 fL (80-100); Platelet Count 338 K/uL (130-400); RDW Coefficient of Variation 13.4 % (11.5-14.5); RDW Standard Deviation 44.1 fL (36.4-46.3); Red Blood Count 4.78 M/uL (4.7-6.1); White Blood Count 11.95 K/uL (4.8-10.8)
[2021-01-28 07:24] LABS: Albumin Level 2.6 gm/dl (3.4-5.0); BUN Creatinine Ratio 30.4 (10-20); Calcium 8.4 mg/dl (8.5-10.1); Creatinine Clr Calc Pharmacy 92.2 ml/min; Est GFR (African American) 94.3 ml/min; Est GFR (Non-African American) 81.3 ml/min; Magnesium 2.4 mg/dl (1.8-2.4); Potassium 4.6 mmol/L (3.5-5.1)
[2021-01-28 07:36] LABS: Albumin Globulin Ratio 0.5 (0.9-2); Bilirubin,Total 0.9 mg/dl (0.2-1); Globulin 5.5 gm/dl (2.5-4.0); Total Protein 8.1 gm/dl (6.4-8.2)
--- NOTE | 2021-01-28 08:15 | Hospitalist Progress Note ---
Date of Service January 28, 2021 Assessment & Plan (1) Weakness: Plan: Patient with a longstanding history of low back pain that has been progressively worse and subsequently leading to ambulatory dysfunction (had been walking/hiking 2 weeks ago) Presented to the ED yesterday given inability to walk. UA negative. CT scan showed large bulging disc at the level of L4-L5 --> however, MRI subsequently obtained showing no evidence of large disc herniation or central cord compromise of the central canal. Multilevel lumbosacral spondylosis without central canal compromise. Did have radiculopathy down the right lower extremity 01/25 -- Cont'd on dexamethasone 8mg IV daily. Had improvement of symptoms but with continued b/l LE weakness R>L but not yet up out of bed walking. PT/OT consults placed. 01/26--> progressive weakness in b/l LE not fitting imaging findings. Had Dr Altagracia awan, also not explaining symptoms. 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 --> recent URI but also had Pfizer vaccine shortly before requiring hospitalization CT head without acute abn. --> s/p LP with elevated protein 143, glucose 74. No WBC or cells, leaning away from Lyme per discussion with Neuro --> continue Doxy BID for now (cont 3-4 weeks), await CSF MRI of lumbar, cervical, thoracic spines with degenerative changes and mild spinal stenosis but no surgical lesions Started IVIG 0.4 g/kg/day over 5 days. CSF studies pending as rec'd by Neuro 01/28-- > now with progression of weakness to UE. Thankfully no respiratory compromise at this time. Neurochecks Q4H. Will also have respiratory therapy obtain NIF Qshift to ensure stable from respiratory standpoint as well Continued therapy --> will alert to see if able to work with him several times daily. Also discussed rehab with daughter at bedside this evening moving forward as they were initially not on board with patient going to any kind of facility. 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 never treated for such in past. no bulls-eye rash/lesions appreciated Doxy as above for now unless CSF +, then switch Ceftriaxone as above (4) Low back pain: Plan: pain control tx for above (5) Leg weakness: Plan: 2nd to above additional labs pending per neuro recs (6) Ambulatory dysfunction: Plan: 2nd to above Continue PT/OT and will need intensive rehab at d/c (7) Leukocytosis: Plan: Likely steroid-induced. Patient was on Medrol Dosepak prior to presentation to the ED He is without fever +Lyme as above -- WB pending. Started Doxy evening 01/26 WBC resolving and also tapered steroids, now d/c'd (8) Hypertension: Plan: elevations 2nd to pain/steroids Continue verapamil, lisinopril, and metoprolol steroids now d/c'd. lasix 40mg PO x 1 on 01/27 (takes prn edema at home) and usual 20mg dose provided today for decreased edema on exam Hydralazine prn BP currently 143/79 Plan: Continue doxy for Lyme -- monitor WB and change to ceftriaxone if needed Neuro on consult and following continue IVIG (day 2 of 5, to be completed Monday) D/c Steroids Continue PT/OT -- rehab at d/c. CM following. --> I did complete appeal for insurance denial on the phone evening 01/27 as stay was denied. Approved. Continue to monitor Admission and Anticipated Discharge Date Admission Date: January 26, 2021 Supervising Physician Co-Signing Physician Notes PA Supervision Note: I did not personally see or examine the patient today, but I verified all dominique points of BEATA Presley's assessment and plan with the following exceptions/additions: None Subjective patient evaluated around noon. had been trying to sit up at side of bed but having difficulty getting his legs back up into bed -- assisted patient with such and repositioned in bed. He endorses getting better sleep and does have back pain but controlled with medications. 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 Discussed IVIG and continued therapy and to alert staff of any difficulty breathing or continued progression of weakness , which he denies at this time. No fever, chills, chest pain, shortness of breath, abdominal pain , nausea or vomiting. Passing gas and has had 1 BM since admission -- will add Dulcolax 1 one and continue to monitor. Revisited and updated daughter Anamaria at bedside this evening along with felix ent for plan of care. Rec continued therapy and strongly encourage rehab at d/c. Review of Systems Review of Systems: All systems reviewed & are unremarkable except as noted in HPI & below Physical Exam Physical Exam: General: laying across bed with legs flopped over the side of the bed and assisted patient to get back in bed and boosted up eyes anicteria , pupils equal and reactive, EOMI trachea midline without deviation resp: CTAB, diminished in bases, no w/c/r, no accessory muscle use,on room air CV: RRR, no m/r/g, 1+ edema b/l LE GI: +BS throughout, +distended, non-tender, no guarding or rigidity : no talamantes Psych: AOx3, occasional forgetfulness Neuro/MSK: speech clear, answers questions appropriately, no facial droop, facial strength intact. no meningeal signs. not able to test gait as unable to stand. No pronator drift or tremor noted. 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 4/5 hip flexors/extensors but 3/5 distally sensation intact to light touch ABSENT DTR to biceps/triceps/Achilles Decreased ability to deal cards with daughter at bedside this evening Results & Data Results & Data ([facility]) Vital Signs (Past 12 Hours) Vital Signs Temp Pulse Resp BP BP Pulse Ox 01/28/21 07:47 36.9 C 59 L 16 182/85 H 95 01/28/21 04:16 36.5 C 62 16 164/62 H 94 01/28/21 03:15 59 L 20 161/78 H 94 01/28/21 02:20 36.6 C 61 18 166/84 H 95 01/28/21 01:25 60 20 160/82 H 94 01/28/21 00:35 36.5 C 61 18 151/90 H 95 01/28/21 00:20 36.3 C L 60 20 162/93 H 95 01/27/21 23:13 63 20 137/81 95 01/27/21 22:36 36.3 C L 64 18 156/81 H 94 01/27/21 21:27 36.9 C 69 16 131/76 97 01/27/21 21:00 68 20 164/89 H 96 01/27/21 20:40 36.5 C 64 22 157/91 H 96 Laboratory Results 01/28/21 01/28/21 01/27/21 Range/Units 05:49 05:49 Unknown WBC 11.95 H (4.8-10.8) K/uL RBC 4.78 (4.7-6.1) M/uL Hgb 14.7 (14.0-18.0) g/dL Hct 43.3 (42-52) % MCV 90.6 (80-100) fL MCH 30.8 (25-34) pg MCHC 33.9 (32-36) g/dL RDW Std Deviation 44.1 (36.4-46.3) fL RDW Coeff of Khushboo 13.4 (11.5-14.5) % Plt Count 338 (130-400) K/uL MPV 10.0 (7.4-10.4) fL Sodium 132 L (136-145) mmol/L Potassium 4.6 (3.5-5.1) mmol/L Chloride 101 (98-107) mmol/L Carbon Dioxide 26 (21-32) mmol/L Anion Gap 5.0 (3-11) BUN 29 H (7-18) mg/dl Creatinine 0.95 (0.6-1.4) mg/dl Est Cr Clr Drug Dosing 92.2 ml/min Est GFR ( Amer) 94.3 ml/min Est GFR (Non-Af Amer) 81.3 ml/min BUN/Creatinine Ratio 30.4 H (10-20) Glucose 94 (70-99) mg/dl Calcium 8.4 L (8.5-10.1) mg/dl Magnesium 2.4 (1.8-2.4) mg/dl Total Bilirubin 0.9 (0.2-1) mg/dl AST 14 L (15-37) U/L ALT 29 (12-78) U/L Alkaline Phosphatase 61 (45-117) U/L Total Protein 8.1 (6.4-8.2) gm/dl Albumin 2.6 L (3.4-5.0) gm/dl Globulin 5.5 H (2.5-4.0) gm/dl Albumin/Globulin Ratio 0.5 L (0.9-2) Fld Lyme DNA (PCR) Fluid Comment CSF Appearance CSF Color Xanthrochromic CSF WBC (0-5) /uL CSF RBC (0-) /uL CSF Cell Count Tube # CSF Chemistry Tube # CSF Glucose (40-70) mg/dl CSF Lactate CSF Total Protein CSF Albumin CSF IgG CSF IgG Index CSF IgG Synthesis Rate CSF Myelin Basic Protein CSF IgG Oligoclonal Bnd CSF VDRL Cancelled IgG Albumin (KATERIN) [place] Channel Ab Striated Muscle Ab Ttr Striated Muscle Ab Acetylchol Rcpt Bind Ab Acetylchol Rcpt Modu Ab Lyme Specimen Source CMV Specimen Source CMV Qnt PCR IU/mL CMV Qnt PCR log IU/mL Enterovirus Source Enterovirus RNA RT-PCR Herpes Virus Source HSV I DNA PCR HSV II DNA PCR Herpesvirus 6 Source HHV-6 DNA (PCR) Varicella-Zoster Source VZV DNA (PCR) 01/27/21 01/27/21 01/27/21 Range/Units Unknown Unknown Unknown WBC (4.8-10.8) K/uL RBC (4.7-6.1) M/uL Hgb (14.0-18.0) g/dL Hct (42-52) % MCV (80-100) fL MCH (25-34) pg MCHC (32-36) g/dL RDW Std Deviation (36.4-46.3) fL RDW Coeff of Khushboo (11.5-14.5) % Plt Count (130-400) K/uL MPV (7.4-10.4) fL Sodium (136-145) mmol/L Potassium (3.5-5.1) mmol/L Chloride (98-107) mmol/L Carbon Dioxide (21-32) mmol/L Anion Gap (3-11) BUN (7-18) mg/dl Creatinine (0.6-1.4) mg/dl Est Cr Clr Drug Dosing ml/min Est GFR ( Amer) ml/min Est GFR (Non-Af Amer) ml/min BUN/Creatinine Ratio (10-20) Glucose (70-99) mg/dl Calcium (8.5-10.1) mg/dl Magnesium (1.8-2.4) mg/dl Total Bilirubin (0.2-1) mg/dl AST (15-37) U/L ALT (12-78) U/L Alkaline Phosphatase (45-117) U/L Total Protein (6.4-8.2) gm/dl Albumin (3.4-5.0) gm/dl Globulin (2.5-4.0) gm/dl Albumin/Globulin Ratio (0.9-2) Fld Lyme DNA (PCR) Cancelled Fluid Comment CSF Appearance Clear CSF Color Colorless Xanthrochromic No xanthochromia CSF WBC 0 (0-5) /uL CSF RBC 0 (0-) /uL CSF Cell Count Tube # 3 CSF Chemistry Tube # 1 CSF Glucose 74 H (40-70) mg/dl CSF Lactate CSF Total Protein 143.9 H CSF Albumin CSF IgG CSF IgG Index CSF IgG Synthesis Rate CSF Myelin Basic Protein CSF IgG Oligoclonal Bnd CSF VDRL IgG Albumin (KATERIN) [place] Ca Channel Ab Striated Muscle Ab Ttr Striated Muscle Ab Acetylchol Rcpt Bind Ab Acetylchol Rcpt Modu Ab Lyme Specimen Source Cancelled CMV Specimen Source CMV Qnt PCR IU/mL CMV Qnt PCR log IU/mL Enterovirus Source Enterovirus RNA RT-PCR Herpes Virus Source HSV I DNA PCR HSV II DNA PCR Herpesvirus 6 Source HHV-6 DNA (PCR) Varicella-Zoster Source VZV DNA (PCR) 01/27/21 01/27/21 01/27/21 Range/Units Unknown Unknown 21:15 WBC (4.8-10.8) K/uL RBC (4.7-6.1) M/uL Hgb (14.0-18.0) g/dL Hct (42-52) % MCV (80-100) fL MCH (25-34) pg MCHC (32-36) g/dL RDW Std Deviation (36.4-46.3) fL RDW Coeff of Khushboo (11.5-14.5) % Plt Count (130-400) K/uL MPV (7.4-10.4) fL Sodium (136-145) mmol/L Potassium (3.5-5.1) mmol/L Chloride (98-107) mmol/L Carbon Dioxide (21-32) mmol/L Anion Gap (3-11) BUN (7-18) mg/dl Creatinine (0.6-1.4) mg/dl Est Cr Clr Drug Dosing ml/min Est GFR ( Amer) ml/min Est GFR (Non-Af Amer) ml/min BUN/Creatinine Ratio (10-20) Glucose (70-99) mg/dl Calcium (8.5-10.1) mg/dl Magnesium (1.8-2.4) mg/dl Total Bilirubin (0.2-1) mg/dl AST (15-37) U/L ALT (12-78) U/L Alkaline Phosphatase (45-117) U/L Total Protein (6.4-8.2) gm/dl Albumin (3.4-5.0) gm/dl Globulin (2.5-4.0) gm/dl Albumin/Globulin Ratio (0.9-2) Fld Lyme DNA (PCR) Fluid Comment CSF Appearance CSF Color Xanthrochromic CSF WBC (0-5) /uL CSF RBC (0-) /uL CSF Cell Count Tube # CSF Chemistry Tube # CSF Glucose (40-70) mg/dl CSF Lactate Cancelled CSF Total Protein Cancelled CSF Albumin CSF IgG CSF IgG Index CSF IgG Synthesis Rate CSF Myelin Basic Protein CSF IgG Oligoclonal Bnd CSF VDRL IgG Albumin (KATERIN) [place] Channel Ab Pending Striated Muscle Ab Ttr Pending Striated Muscle Ab Pending Acetylchol Rcpt Bind Ab Pending Acetylchol Rcpt Modu Ab Pending Lyme Specimen Source CMV Specimen Source CMV Qnt PCR IU/mL CMV Qnt PCR log IU/mL Enterovirus Source Enterovirus RNA RT-PCR Herpes Virus Source HSV I DNA PCR HSV II DNA PCR Herpesvirus 6 Source HHV-6 DNA (PCR) Varicella-Zoster Source VZV DNA (PCR) 01/27/21 01/27/21 01/27/21 Range/Units 21:15 14:44 14:44 WBC (4.8-10.8) K/uL RBC (4.7-6.1) M/uL Hgb (14.0-18.0) g/dL Hct (42-52) % MCV (80-100) fL MCH (25-34) pg MCHC (32-36) g/dL RDW Std Deviation (36.4-46.3) fL RDW Coeff of Khushboo (11.5-14.5) % Plt Count (130-400) K/uL MPV (7.4-10.4) fL Sodium (136-145) mmol/L Potassium (3.5-5.1) mmol/L Chloride (98-107) mmol/L Carbon Dioxide (21-32) mmol/L Anion Gap (3-11) BUN (7-18) mg/dl Creatinine (0.6-1.4) mg/dl Est Cr Clr Drug Dosing ml/min Est GFR ( Amer) ml/min Est GFR (Non-Af Amer) ml/min BUN/Creatinine Ratio (10-20) Glucose 171 H (70-99) mg/dl Calcium (8.5-10.1) mg/dl Magnesium (1.8-2.4) mg/dl Total Bilirubin (0.2-1) mg/dl AST (15-37) U/L ALT (12-78) U/L Alkaline Phosphatase (45-117) U/L Total Protein (6.4-8.2) gm/dl Albumin (3.4-5.0) gm/dl Globulin (2.5-4.0) gm/dl Albumin/Globulin Ratio (0.9-2) Fld Lyme DNA (PCR) Pending Fluid Comment CSF Appearance CSF Color Xanthrochromic CSF WBC (0-5) /uL CSF RBC (0-) /uL CSF Cell Count Tube # CSF Chemistry Tube # CSF Glucose (40-70) mg/dl CSF Lactate CSF Total Protein CSF Albumin Pending CSF IgG Pending CSF IgG Index Pending CSF IgG Synthesis Rate Pending CSF Myelin Basic Protein Pending CSF IgG Oligoclonal Bnd Pending CSF VDRL Pending IgG Pending Albumin (KATERIN) Pending [place] Channel Ab Striated Muscle Ab Ttr Striated Muscle Ab Acetylchol Rcpt Bind Ab Pending Acetylchol Rcpt Modu Ab Lyme Specimen Source Pending CMV Specimen Source Pending CMV Qnt PCR IU/mL Pending CMV Qnt PCR log IU/mL Pending Enterovirus Source Pending Enterovirus RNA RT-PCR Pending Herpes Virus Source Pending HSV I DNA PCR Pending HSV II DNA PCR Pending Herpesvirus 6 Source Pending HHV-6 DNA (PCR) Pending Varicella-Zoster Source Pending VZV DNA (PCR) Pending Diagnostic Findings Cervical Spine MRI 01/27/21 10:45 MR cervical spine wo/w con CLINICAL HISTORY: 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 Back pain and bilateral leg weakness COMPARISON: None. TECHNIQUE: Multiplanar multisequence images of the Cervical Spine were performed were performed with and without IV contrast. Contrast Volume: 10.9 ml of Gadavist FINDINGS: There is no evidence for vertebral body fracture. The heights of the vertebral bodies are maintained. The vertebral bodies are in anatomic alignment. Homogeneous marrow signal seen without evidence for marrow edema or marrow replacement. The odontoid is intact and the atlantoaxial articulation is within normal limits. The craniocervical junction is within normal limits. Homogeneous signal is seen within the spinal cord. There is no abnormal enhancement following contrast administration. C2-3: The disc space height is maintained. There are no focal disc protrusions or extrusions identified. The spinal canal is patent with no encroachment upon the spinal cord. The neural foramen are patent bilaterally. There is no evidence for nerve root encroachment. The apophyseal joints are within normal limits. C3-4: The disc space height is maintained. There are no focal disc protrusions or extrusions identified. The spinal canal is patent with no encroachment upon the spinal cord. The neural foramen are patent bilaterally. There is no evidence for nerve root encroachment. The apophyseal joints are within normal limits. C4-5: There is moderate disc space narrowing with disc/osteophyte complex present. There are no focal disc protrusions or extrusions identified. There is minimal encroachment upon the spinal canal anteriorly without compression upon the spinal cord. There is decreased CSF surrounding the spinal cord with the findings characteristic of mild central canal stenosis. The neural foramen are patent bilaterally. There is no evidence for nerve root encroachment. The apophyseal joints are within normal limits. C5-6: There is moderate disc space narrowing with central bulging of the annulus present. There are no focal disc protrusions or extrusions identified. The spinal canal is patent with no encroachment upon the spinal cord. The neural foramen are patent bilaterally. There is no evidence for nerve root encroachment. The apophyseal joints are within normal limits. C6-7: There is moderate disc space narrowing with mild bulging of the annulus present. There are no focal disc protrusions or extrusions identified. The spinal canal is patent with no encroachment upon the spinal cord. The neural foramen are patent bilaterally. There is no evidence for nerve root encroachment. The apophyseal joints are within normal limits. C7-T1: The disc space height is maintained. There are no focal disc protrusions or extrusions identified. The spinal canal is patent with no encroachment upon the spinal cord. The neural foramen are patent bilaterally. There is no evidence for nerve root encroachment. The apophyseal joints are within normal limits. IMPRESSION: 1. Bulging annuli at C4-5, C5-6 and C6-7 with evidence for mild central canal stenosis at C4-5. 2. No disc protrusion/herniation or focal nerve root impingement. 3. No abnormal enhancement following contrast administration. ACT 112: Negative or not required by law. Electronically signed by: Pastor Serrano M.D. 01/27/2021 8:07 PM Thoracic Spine MRI 01/27/21 10:51 MR thoracic spine wo/w con CLINICAL HISTORY: concerns for GBS post-vaccine. Back pain and bilateral leg weakness COMPARISON: None. TECHNIQUE: Multiplanar multisequence images of the Thoracic Spine were performed with and without IV contrast. Contrast Volume: 10.9 ml of Gadavist FINDINGS: Bones: There is no evidence for an acute vertebral body fracture. Minimal old anterior wedge deformities are present from T7 through T11. The heights of the remaining thoracic vertebral bodies are maintained. The vertebral bodies are in anatomic alignment. Homogeneous marrow signal is seen without evidence for marrow edema or marrow replacement. There is no abnormal marrow enhancement. Disc spaces: There is mild to moderate disc space narrowing present from T6 through T12 There are no focal disc protrusions or herniations identified. There is no significant spinal canal stenosis or neural foraminal narrowing present. Soft tissues: The thoracic spinal cord appears normal. There are no paraspinal fluid collections or soft tissue masses identified. No abnormal enhancement is identified. IMPRESSION: Minimal old anterior wedge deformities and degenerative disc disease. No acute pathology or evidence for abnormal spinal cord enhancement. Electronically signed by: Pastor Serrano M.D. 01/27/2021 8:[address] 01/27/21 11:00 CT OF THE HEAD WITHOUT CONTRAST CLINICAL HISTORY: concerns for GBS, LE weakness COMPARISON STUDY: No previous studies for comparison. CT DOSE: 1400.53 mGy.cm TECHNIQUE: Helical axial images of the head were obtained without IV contrast. Automated exposure control was utilized for the study. A dose lowering technique was utilized adhering to the principles of ALARA. FINDINGS: No acute intracranial hemorrhage, midline shift or mass effect is present. Ventricular system is unremarkable. Basal cisterns are patent. There are no extra-axial collections. White matter hypodensities suggest moderate small vessel disease. There are no findings to suggest acute dural sinus thrombosis or acute territorial infarct. There are no significant calvarial abnormalities. There is mild polypoid mucosal thickening of the bilateral maxillary sinuses. IMPRESSION: No acute intracranial findings. ACT 112: Negative or not required by law. Electronically signed by: Sanjiv Faith M.D. 01/27/2021 12:25 PM PG Care Time/CCT Total # of Minutes Spent Total Time Spent with Patient: Total time spent is greater than 50% in coordination of care (as documented) at patient's floor/unit and/or counseling patient: Coding Level of Care Code 01066 Subseq Hosp Care Lvl 3 Diagnoses Low back pain M54.50 Lyme disease A69.20 Leg weakness R29.898 Laterality: unspecified laterality Ambulatory dysfunction R26.2 Leukocytosis D72.829 Hypertension I10 Guillain-Heilwood syndrome G61.0 Weakness R53.1 (1) Leg weakness Laterality: unspecified laterality Qualified Code(s): R29.898 - Other symptoms and signs involving the musculoskeletal system
[2021-01-28] MEDS: METOPROLOL SUCC 25MG EXT REL TAB PO SCH (08:17)
[2021-01-28] MEDS: POLYETHYLENE (MIRALAX) 17 GM PACK PO SCH (08:17)
[2021-01-28] MEDS: DOCUSATE SODIUM/SENNA 50/8.6MG TAB PO SCH (08:17)
[2021-01-28] MEDS: dexAMETHasone 4 MG in SYRINGE 0 ML IV SCH (08:17)
[2021-01-28] MEDS: DOXYCYCLINE HYCLATE 100 MG CAP PO SCH ×2 (08:17→20:15)
--- NOTE | 2021-01-28 08:48 | Neurology Progress Note ---
Date of Service January 28, 2021 Assessment & Plan (1) Weakness: (2) Lyme disease: (3) Guillain-Topanga syndrome: Plan: this patient has significant bilaterally, symmetrical lower extremity weakness with absent deep tendon reflexes. He does not have any sensory deficits. His arms have mild weakness left greater than right side and decreased reflexes as well. He has no cranial nerve issues.There is significant low back pain without radicular symptoms. His symptoms started shortly after a Pfizer Covid-19 booster vaccination. His symptoms have progressed over time. A Lyme antibody titer is positive for IgG and IgM ( Western blot pending ). MRI of the lumbar, cervical, thoracic spines showed degenerative changes and some spondylosis and mild spinal stenosis only but no surgical lesions. lumbar puncture showed no cells and protein of 143. 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 I cannot exclude central Lyme disease. Recommendations: 1. continue treatment with IVIG. IVIG given at 0.4 g/kg/day over 5 days. 2. physical and occupational therapy consult, increasing activity as able. He actually may not have peak yet with his weakness and this can take up to several weeks. 3. Continue doxycycline 100 milligrams p.o. twice daily for 3-4 weeks. If his CSF Lyme titer is positive I might switch to Rocephin IV 3-4 weeks via PICC line 4. I will follow Overall, I spent a total of 75 minutes with this case including review of records, review of MRI and CT films, direct evaluation the patient at bedside, and discussing the case with the patient at bedside, RN at bedside, and BEATA logan, including differential diagnosis and treatment options. Admission and Anticipated Discharge Date Admission Date: January 26, 2021 Subjective The patient feels that he is weak in both legs equally. He also feels that his arms are weak as well. He has low back pain of a "Jaggy" nature". He does not have radicular pain in the legs. His history is that he had the 5 her vaccine the day before and th en had low back pain a day or 2 later. He began getting weak in the legs at that time. His arm started a couple of days later. The patient is positive Lyme IgG and IgM but the Western blot is pending. CBC and Chem profile are unremarkable though he has an elevated white count ( but is on steroids ). LP was performed and had 0 white cells and a protein of 143. There is no gross so far. MRI of the lumbar spine showed multilevel spondylosis without stenosis of significant nature. MRI of the thoracic spine showed some degenerative changes only. MRI of the cervical spine showed multiple level spondylosis with some mild spinal stenosis at C4-5. Again there was no surgical lesion present. CT scan of the head was unremarkable. Results & Data ([facility]) Vital Signs (Past 12 Hours) Vital Signs Temp Pulse Resp BP BP Pulse Ox 01/28/21 07:47 36.9 C 59 L 16 182/85 H 95 01/28/21 04:16 36.5 C 62 16 164/62 H 94 01/28/21 03:15 59 L 20 161/78 H 94 01/28/21 02:20 36.6 C 61 18 166/84 H 95 01/28/21 01:25 60 20 160/82 H 94 01/28/21 00:35 36.5 C 61 18 151/90 H 95 01/28/21 00:20 36.3 C L 60 20 162/93 H 95 01/27/21 23:13 63 20 137/81 95 01/27/21 22:36 36.3 C L 64 18 156/81 H 94 01/27/21 21:27 36.9 C 69 16 131/76 97 01/27/21 21:00 68 20 164/89 H 96 01/27/21 20:40 36.5 C 64 22 157/91 H 96 Exam (Neuro) Physical Exam: The patient is awake, alert, and attentive. Speech is normal without any aphasia or dysarthria. The patient can name objects, repeat phrases, and has normal spontaneous speech. Mentation and thought processes are intact, with orientation to person, place and time, and normal fund of knowledge. Attention and concentration are normal. Mood and affect are normal and appropriate. General appearance and grooming are normal. Short and long-term memory are intact. Pupils are 3 mm bilaterally and reactive to light. Extraocular eye muscles are intact without nystagmus. Visual acuity and visual lewis seem normal grossly to confrontation. There are no deficits to sensation in the face in all 3 distributions of the fifth cranial nerve bilaterally. Corneal reflexes are positive bilaterally. Facial strength and symmetry was normal bilaterally. Hearing seems normal bilaterally. Palate moves well without asymmetry. There is normal sternocleidomastoid and trapezius (shoulder shrug) strength bilaterally. Tongue is midline with good strength bilaterally. Neck has a full range of motion without discomfort. There are no cervical bruits bilaterally. There are no cranial or ocular bruits. gait was not tested. Stance is poor sitting. With outstretched arms there is no drift. There are no resting, postural, or action tremors. There is no ataxia with finger to nose testing , however there is some dysmetria bilaterally.. There is Decreased facility in the hands. No other abnormal involuntary movements are noted. Motor strength is 4/5 diffusely in the left upper extremity both proximally distally. The right upper extremity was mildly weak at 4+/ 5 (a little better than the left ), diffusely. Leg strength is 4/5 Proximally in the hip flexors and quadriceps bilaterally. Tibialis anterior is 3/4 bilaterally and gastrocnemius are 4/5. Sensory examination is intact to touch and pin throughout all 4 limbs diffusely. Reflexes are One/for the brachioradialis tendons bilaterally. Biceps, triceps, quadriceps, and Achilles tendon reflexes are absent bilaterally. PG Care Time/CCT Total # of Minutes Spent Total Time Spent with Patient: Total time spent is greater than 50% in coordination of care (as documented) at patient's floor/unit and/or counseling patient: Coding Level of Care Code 95088 Subseq Hosp Care Lvl 3 Diagnoses Weakness R53.1 Lyme disease A69.20 Guillain-Topanga syndrome G61.0 Time Spent (min) 75
[2021-01-28] MEDS: lisinopril 20 MG TAB PO SCH ×2 (09:22→20:15)
[2021-01-28] MEDS: VERAPAMIL HCL 180 MG TABCR PO SCH ×2 (09:23→20:15)
[2021-01-28] MEDS ORDERED: bisacodyL 5 MG TABEC PO ONE (12:20)
[2021-01-28] MEDS ORDERED: FUROSEMIDE 20 MG TAB PO ONE (18:32)
[2021-01-28] MEDS: ENOXAPARIN INJ 40 MG/0.4 ML SYR SQ SCH (20:15)
[2021-01-29 03:41] LABS: 18KDIGG Band REACTIVE; 23KDIGG Band REACTIVE; 23KDIGM Band REACTIVE; 28KDIGG Band REACTIVE; 30KDIGG Band NON-REACTIVE; 39KDIGG Band REACTIVE; 39KDIGM Band REACTIVE; 41KDIGG Band REACTIVE; 41KDIGM Band REACTIVE; 45KDIGG Band NON-REACTIVE; 58KDIGG Band REACTIVE; 66KDIGG Band NON-REACTIVE; 93KDIGG Band REACTIVE; Lyme Antibodies, WB IgG POSITIVE (NEGATIVE); Lyme Antibodies, WB IgM POSITIVE (NEGATIVE)
--- NOTE | 2021-01-29 07:58 | XRay Report ---
XR chest 1V portable HISTORY: chest congestion COMPARISON: Chest 04/08/2016. FINDINGS: Small hazy density within the left lateral lung base likely represents prominent mediastina l fat. Small linear density within the right medial lung base consistent with subsegmental atelectasi s. No focal lung consolidations to suggest pneumonia. No evidence for pulmonary edema. The heart is t op normal in size. No pleural effusions. No pneumothorax. IMPRESSION: No acute process. ACT 112: Negative or not required by law. Electronically signed by: Merrick Baca M.D. 01/29/2021 7:57 AM
[2021-01-29] MEDS: DOXYCYCLINE HYCLATE 100 MG CAP PO SCH (08:35)
[2021-01-29] MEDS: VERAPAMIL HCL 180 MG TABCR PO SCH ×2 (08:35→20:20)
[2021-01-29] MEDS: METOPROLOL SUCC 25MG EXT REL TAB PO SCH (08:36)
[2021-01-29] MEDS: lisinopril 20 MG TAB PO SCH ×2 (08:36→20:20)
[2021-01-29] MEDS: POLYETHYLENE (MIRALAX) 17 GM PACK PO SCH (08:36)
[2021-01-29] MEDS: DOCUSATE SODIUM/SENNA 50/8.6MG TAB PO SCH (08:36)
[2021-01-29] MEDS ORDERED: predniSONE 20 MG TAB PO SCH (09:00)
--- NOTE | 2021-01-29 10:14 | Hospitalist Progress Note ---
Date of Service January 29, 2021 Assessment & Plan (1) Weakness: Plan: Patient with a longstanding history of low back pain that has been progressively worse and subsequently leading to ambulatory dysfunction (had been walking/hiking 2 weeks ago) Presented to the ED yesterday given inability to walk. UA negative. CT scan showed large bulging disc at the level of L4-L5 --> however, MRI subsequently obtained showing no evidence of large disc herniation or central cord compromise of the central canal. Multilevel lumbosacral spondylosis without central canal compromise. Did have radiculopathy down the right lower extremity 01/25 -- Cont'd on dexamethasone 8mg IV daily. Had improvement of symptoms but with continued b/l LE weakness R>L but not yet up out of bed walking. PT/OT consults placed. 01/26--> progressive weakness in b/l LE not fitting imaging findings. Had Dr Altagracia awan, also not explaining symptoms. Checked Lyme (see below), but also consulted Neuro for AM CK wnl, LDH elevated, Aldolase pending 01/27 --> Neuro consult undertaken, concerns for possible Guillain Concord Syndrome. --> recent URI but also had Pfizer vaccine shortly before requiring hospitalization CT head without acute abn. --> s/p LP with elevated protein 143, glucose 74. No WBC or cells, leaning away from Lyme per discussion with Neuro --> continue Doxy BID for now (cont 3-4 weeks), await CSF MRI of lumbar, cervical, thoracic spines with degenerative changes and mild spinal stenosis but no surgical lesions Started IVIG 0.4 g/kg/day over 5 days. CSF studies pending as rec'd by Neuro 01/28-- > now with progression of weakness to UE. Thankfully no respiratory compromise at this time. Neurochecks Q4H. Will also have respiratory therapy obtain NIF Qshift to ensure stable from respiratory standpoint as well Continued therapy --> will alert to see if able to work with him several times daily. Also discussed rehab with daughter at bedside this evening moving forward as they were initially not on board with patient going to any kind of facility. Worried about not being able to visit him as well Continue Doxy BID (started evening 01/26) unless CSF + then would switch to Ceftriaxone and continue 28days IV, US guided IV would be req'd D/c Steroids as no role 01/29 -->Slight improvement, but thankfully no further decline, raising suspicion for more of Lyme picture given would expect 2 wks prior to improvement? Continue IVIG Western Blot SIGNIFICANTLY POSITIVE --> SWITCHED TO ROCEPHIN 01/29, CONTINUE FOR NOW UNTIL CSF RETURNED. IF POSITIVE CONTINUE 28 DAYS WITH US GUIDED IV Continue therapy -- rec rehab at d/c Per Neuro continue course for now. Will need EMG testing outpt to determine demyelinating vs axonal and determine prognosis for patient Continue to monitor (2) Guillain-Concord syndrome: Plan: suspected as above however WB significantly positive and tx with Ceftriaxone as above (3) Lyme disease: Plan: + on initial testing, WB pending. never treated for such in past. no bulls-eye rash/lesions appreciated Doxy as above for now unless CSF +, then switch Ceftriaxone as above Given degree on WB, switched to Rocephin IV 01/29 and will monitor CSF results (4) Low back pain: Plan: pain control tx for above -- decrease pain reported 01/29 (5) Leg weakness: Plan: 2nd to above additional labs pending per neuro recs PT/OT tx as above (6) Ambulatory dysfunction: Plan: 2nd to above Continue PT/OT and will need INTENSIVE rehab at d/c (7) Leukocytosis: Plan: Likely steroid-induced. Patient was on Medrol Dosepak prior to presentation to the ED He is without fever +Lyme as above on initial screen -- WB as above, Was on doxy starting 01/26--> ceftriaxone 01/29 continue to monitor, no fevers. steroids d/c'd 01/28 (8) Hypertension: Plan: elevations 2nd to pain/steroids, now improving Continue verapamil, lisinopril, and metoprolol lasix to be ordered prn -- no further today Hydralazine prn BP currently 142/78 Plan: Switched to Ceftriaxone IV as above for WB --> monitor CSF Lyme as well as other studies per Neuro Neuro continuing to follow --> will need outpatient EMGs IVIG (day 3 of 5, to be completed Monday) Continue PT/OT -- rehab at d/c. CM following. --> I did complete appeal for insurance denial on the phone evening 01/27 as stay was denied--> Approved. Continue to monitor Admission and Anticipated Discharge Date Admission Date: January 26, 2021 Supervising Physician Co-Signing Physician Notes PA Supervision Note: I did not personally see or examine the patient today, but I verified all dominique points of BEATA Presley's assessment and plan with the following exceptions/additions: None Subjective patient evaluated this afternoon doing well no worsening of weakness and things maybe slightly improvement discussed Lyme WB and transition to IV ceftriaxone while awaiting CSF but would rec 28days if positive still with weakness in legs but thinks some strength coming back, has been doing exercises as instructed by PT updated daughter on phone this evening -- plans on visiting tomorrow eating/drinking no issues no fever, chills, chest pain, shortness of breath,abdominal pain. No nausea. Passing lots of gas but no BM. Review of Systems Review of Systems: All systems reviewed & are unremarkable except as noted in HPI & below Physical Exam Physical Exam: General: WD/WN, sitting at side of bed, NAD eyes anicteric , pupils equal and reactive, EOMI trachea midline without deviation resp: CTAB, diminished in bases, no w/c/r, no accessory muscle use,on room air 94% CV: RRR, no m/r/g, trace-1+ LE edema GI: +BS throughout, +distended, non-tender, no guarding or rigidity : no talamantes Psych: AOx3, occasional forgetfulness (improved but states chronic issue) Neuro/MSK: speech clear, answers questions appropriately, no facial droop, facial strength intact. no meningeal signs. not able to test gait as unable to stand. No pronator drift or tremor noted. 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 4/5 hip flexors/extensors but 3/5 distally sensation intact to light touch ABSENT DTR to biceps/triceps/Achilles and LE Results & Data Results & Data ([facility]) Vital Signs (Past 12 Hours) Vital Signs Temp Pulse Resp BP Pulse Ox 01/29/21 07:33 36.8 C 70 16 152/90 H 95 01/29/21 01:45 36.7 C 70 18 158/65 H 95 01/29/21 00:15 36.7 C 63 20 175/88 H 96 01/28/21 23:48 36.6 C 63 20 159/91 H 96 01/28/21 22:45 36.7 C 59 L 16 155/91 H 97 01/28/21 22:16 36.8 C 65 18 151/97 H 95 Laboratory Results 01/29/21 01/29/21 01/29/21 Range/Units 10:22 10:22 10:22 WBC 14.52 H (4.8-10.8) K/uL RBC 4.62 L (4.7-6.1) M/uL Hgb 14.1 (14.0-18.0) g/dL Hct 41.6 L (42-52) % MCV 90.0 (80-100) fL MCH 30.5 (25-34) pg MCHC 33.9 (32-36) g/dL RDW Std Deviation 44.9 (36.4-46.3) fL RDW Coeff of Khushboo 13.7 (11.5-14.5) % Plt Count 336 (130-400) K/uL MPV 9.8 (7.4-10.4) fL ESR 36 H (0-20) mm/hr Sodium 132 L (136-145) mmol/L Potassium 4.3 (3.5-5.1) mmol/L Chloride 102 (98-107) mmol/L Carbon Dioxide 24 (21-32) mmol/L Anion Gap 6.0 (3-11) BUN 30 H (7-18) mg/dl Creatinine 0.98 (0.6-1.4) mg/dl Est Cr Clr Drug Dosing 89.4 ml/min Est GFR ( Amer) 90.8 ml/min Est GFR (Non-Af Amer) 78.4 ml/min BUN/Creatinine Ratio 30.8 H (10-20) Glucose 149 H (70-99) mg/dl Calcium 8.4 L (8.5-10.1) mg/dl Total Bilirubin 0.7 (0.2-1) mg/dl AST 15 (15-37) U/L ALT 32 (12-78) U/L Alkaline Phosphatase 59 (45-117) U/L C-Reactive Protein 1.25 H (0-0.29) mg/dl Total Protein 7.3 (6.4-8.2) gm/dl Albumin 2.5 L (3.4-5.0) gm/dl Globulin 4.8 H (2.5-4.0) gm/dl Albumin/Globulin Ratio 0.5 L (0.9-2) Lyme IgG (Western Blot) (NEGATIVE) Lyme IgG 18 kDa Band Lyme IgG 23 kDa Band Lyme IgG 28 kDa Band Lyme IgG 30 kDa Band Lyme IgG 39 kDa Band Lyme IgG 41 kDa Band Lyme IgG 45 kDa Band Lyme IgG 58 kDa Band Lyme IgG 66 kDa Band Lyme IgG 93 kDa Band Lyme IgM Ab (WB) (NEGATIVE) Lyme IgM 23 kDa Band Lyme IgM 39 kDa Band Lyme IgM 41 kDa Band 11/30/21 Range/Units 14:59 WBC (4.8-10.8) K/uL RBC (4.7-6.1) M/uL Hgb (14.0-18.0) g/dL Hct (42-52) % MCV (80-100) fL MCH (25-34) pg MCHC (32-36) g/dL RDW Std Deviation (36.4-46.3) fL RDW Coeff of Khushboo (11.5-14.5) % Plt Count (130-400) K/uL MPV (7.4-10.4) fL ESR (0-20) mm/hr Sodium (136-145) mmol/L Potassium (3.5-5.1) mmol/L Chloride (98-107) mmol/L Carbon Dioxide (21-32) mmol/L Anion Gap (3-11) BUN (7-18) mg/dl Creatinine (0.6-1.4) mg/dl Est Cr Clr Drug Dosing ml/min Est GFR ( Amer) ml/min Est GFR (Non-Af Amer) ml/min BUN/Creatinine Ratio (10-20) Glucose (70-99) mg/dl Calcium (8.5-10.1) mg/dl Total Bilirubin (0.2-1) mg/dl AST (15-37) U/L ALT (12-78) U/L Alkaline Phosphatase (45-117) U/L C-Reactive Protein (0-0.29) mg/dl Total Protein (6.4-8.2) gm/dl Albumin (3.4-5.0) gm/dl Globulin (2.5-4.0) gm/dl Albumin/Globulin Ratio (0.9-2) Lyme IgG (Western Blot) POSITIVE A (NEGATIVE) Lyme IgG 18 kDa Band REACTIVE A Lyme IgG 23 kDa Band REACTIVE A Lyme IgG 28 kDa Band REACTIVE A Lyme IgG 30 kDa Band NON-REACTIVE Lyme IgG 39 kDa Band REACTIVE A Lyme IgG 41 kDa Band REACTIVE A Lyme IgG 45 kDa Band NON-REACTIVE Lyme IgG 58 kDa Band REACTIVE A Lyme IgG 66 kDa Band NON-REACTIVE Lyme IgG 93 kDa Band REACTIVE A Lyme IgM Ab (WB) POSITIVE A (NEGATIVE) Lyme IgM 23 kDa Band REACTIVE A Lyme IgM 39 kDa Band REACTIVE A Lyme IgM 41 kDa Band REACTIVE A PG Care Time/CCT Total # of Minutes Spent Total Time Spent with Patient: Total time spent is greater than 50% in coordination of care (as documented) at patient's floor/unit and/or counseling patient: Coding Level of Care Code 50747 Subseq Hosp Care Lvl 3 Diagnoses Weakness R53.1 Guillain-Concord syndrome G61.0 Lyme disease A69.20 Low back pain M54.50 Leg weakness R29.898 Laterality: unspecified laterality Ambulatory dysfunction R26.2 Leukocytosis D72.829 Hypertension I10 (1) Leg weakness Laterality: unspecified laterality Qualified Code(s): R29.898 - Other symptoms and signs involving the musculoskeletal system
--- NOTE | 2021-01-29 10:17 | Neurology Progress Note ---
Date of Service January 29, 2021 Assessment & Plan (1) Weakness: (2) Lyme disease: (3) Guillain-Lothian syndrome: Plan: This patient has significant bilaterally, symmetrical lower extremity weakness with absent deep tendon reflexes. He does not have any sensory deficits. His arms have mild weakness left greater than right side and decreased reflexes as well. He has no cranial nerve issues.There is significant low back pain without radicular symptoms. Today he is slightly stronger the arms than he was yesterday. His symptoms started shortly after a Pfizer Covid-19 booster vaccination. His symptoms have progressed over time (Although he does not have any progression over the last 24 hours (ease Lyme Western blot was positive for multiple bands and IgG and IgM. MRI of the lumbar, cervical, thoracic spines showed degenerative changes and some spondylosis and mild spinal stenosis only but no surgical lesions. lumbar puncture showed no cells and protein of 143. Overall, I believe his clinical picture is consistent with a Guillain-Lothian syndrome, likely autoimmune reaction from his vaccine , as well as an active Lyme infection.. I cannot exclude central Lyme disease , and CSF Lyme PCR is pending. Recommendations: 1. continue IVIG 40 grams per day. This is day 2 and he has 3 more days. 2. physical and occupational therapy consult, increasing activity as able. He actually may not have peak yet with his weakness and this can take up to several weeks. 3. IV Rocephin until the CSF live result 4. EMG nerve conduction study as an outpatient, which will help with prognosis ( demyelination versus axonopathy). Ideally this should be 2-3 weeks after the onset of symptoms. Overall, I spent a total of 35 minutes with this case including review of records, direct evaluation the patient at bedside, and discussing the case with the patient at bedside, RN at bedside, and BEATA Sanchez, including differential diagnosis and treatment options. Admission and Anticipated Discharge Date Admission Date: January 26, 2021 Subjective patient feels a little better today. He is feels that he is "more alert" today than he was yesterday. He wonders if his strength is a little better also. He is not in pain. Blood pressure is 152/90. He is receiving day 2 of 5 of his IVIG ( 40 grams per day ) CSF Lyme titers are pending hand. Special CSF studies are pending as well. Results & Data ([facility]) Vital Signs (Past 12 Hours) Vital Signs Temp Pulse Resp BP Pulse Ox 01/29/21 07:33 36.8 C 70 16 152/90 H 95 01/29/21 01:45 36.7 C 70 18 158/65 H 95 01/29/21 00:15 36.7 C 63 20 175/88 H 96 01/28/21 23:48 36.6 C 63 20 159/91 H 96 01/28/21 22:45 36.7 C 59 L 16 155/91 H 97 01/28/21 22:16 36.8 C 65 18 151/97 H 95 Exam (Neuro) Physical Exam: Patient is awake and alert. Speech is without aphasia or dysarthria. Mood and affect seem normal appropriate and thought processes are reasonably intact to conversation. Extraocular eye muscles are intact without nystagmus. There is no facial droop and tongue and palate move well. Shoulder shrug is normal bilaterally. With outstretched arms there is no drift and there is no tremor or ataxia with [id number] testing. Strength is 4/5 in the arms diffusely with the left deltoid being 4- compared to the right. Leg strength is 3/5 proximally and 4/5 distally with the gastrocnemius muscles being stronger than the tibialis anterior muscles. Reflexes are absent in all 4 limbs PG Care Time/CCT Total # of Minutes Spent Total Time Spent with Patient: Total time spent is greater than 50% in coordination of care (as documented) at patient's floor/unit and/or counseling patient: Coding Level of Care Code 68837 Subseq Hosp Care Lvl 3 Diagnoses Weakness R53.1 Lyme disease A69.20 Guillain-Lothian syndrome G61.0 Time Spent (min) 35
[2021-01-29 10:49] LABS: Hematocrit (blood only) 41.6 % (42-52); Hemoglobin 14.1 g/dL (14.0-18.0); Mean Corpuscular Hemoglobin 30.5 pg (25-34); Mean Corpuscular Hgb Conc 33.9 g/dL (32-36); Mean Platelet Volume 9.8 fL (7.4-10.4); Platelet Count 336 K/uL (130-400); RDW Coefficient of Variation 13.7 % (11.5-14.5); RDW Standard Deviation 44.9 fL (36.4-46.3); Red Blood Count 4.62 M/uL (4.7-6.1); White Blood Count 14.52 K/uL (4.8-10.8)
[2021-01-29] MEDS: cefTRIAXone SODIUM 2,000 MG in DEXTROSE 5% 50 ML IV SCH (10:58)
[2021-01-29 11:07] LABS: Albumin Level 2.5 gm/dl (3.4-5.0); BUN Creatinine Ratio 30.8 (10-20); Calcium 8.4 mg/dl (8.5-10.1); Creatinine Clr Calc Pharmacy 89.4 ml/min; Est GFR (African American) 90.8 ml/min; Est GFR (Non-African American) 78.4 ml/min; Potassium 4.3 mmol/L (3.5-5.1)
[2021-01-29 11:09] LABS: Albumin Globulin Ratio 0.5 (0.9-2); Bilirubin,Total 0.7 mg/dl (0.2-1); C Reactive Protein 1.25 mg/dl (0-0.29); Globulin 4.8 gm/dl (2.5-4.0); Total Protein 7.3 gm/dl (6.4-8.2)
--- NOTE | 2021-01-29 13:07 | XCELERA ---
[id number]
[2021-01-29] MEDS: HYDROCODONE/ACETAMOPHEN 5/325MG TAB PO PRN (14:20)
[2021-01-29] MEDS ORDERED: bisacodyL 5 MG TABEC PO ONE (14:31)
[2021-01-29] MEDS: IMMUN GLOBG(IGG)/MALT/IGA OV50 100 ML IV SCH ×4 (17:32→21:24)
[2021-01-29] MEDS ORDERED: bisacodyL 5 MG TABEC PO PRN (18:32)
--- NOTE | 2021-01-29 20:19 | Communication Note ---
Date of Service: January 29, 2021 Night team made aware that patient's IgG infusion had extravasated from his peripheral IV line to his left forearm. The skin was cleaned and heat was mony lied per pharmacy recs. I asked nursing to notify me if forearm became red or swollen or if patient reported new pruritus, burning or tingling, which could be suggestive of developing reaction/necrosis.
[2021-01-29] MEDS: ENOXAPARIN INJ 40 MG/0.4 ML SYR SQ SCH (20:20)
[2021-01-30] MEDS: HYDROCODONE/ACETAMOPHEN 5/325MG TAB PO PRN ×2 (00:23→07:33)
[2021-01-30 06:38] LABS: Basophils # (auto) 0.01 K/uL (0-0.2); Basophils % (auto) 0.1 %; Eosinophils # (auto) 0.04 K/uL (0-0.5); Eosinophils % (auto) 0.3 %; Hematocrit (blood only) 44.3 % (42-52); Hemoglobin 14.7 g/dL (14.0-18.0); Immature Granulocytes # (auto) 0.12 K/uL (0.00-0.02); Immature Granulocytes % (auto) 0.9 %; Lymphocytes # (auto) 2.15 K/uL (1.2-3.4); Lymphocytes % (auto) 15.5 %; Mean Corpuscular Hemoglobin 30.2 pg (25-34); Mean Corpuscular Hgb Conc 33.2 g/dL (32-36); Mean Corpuscular Volume 91.2 fL (80-100); Mean Platelet Volume 9.8 fL (7.4-10.4); Monocytes # (auto) 1.61 K/uL (0.11-0.59); Monocytes % (auto) 11.6 %; Neutrophils # (auto) 9.93 K/uL (1.4-6.5); Neutrophils % (auto) 71.6 %; Platelet Count 303 K/uL (130-400); RDW Coefficient of Variation 13.6 % (11.5-14.5); RDW Standard Deviation 44.9 fL (36.4-46.3); Red Blood Count 4.86 M/uL (4.7-6.1); White Blood Count 13.86 K/uL (4.8-10.8)
[2021-01-30 07:07] LABS: Albumin Level 2.4 gm/dl (3.4-5.0); Calcium 8.2 mg/dl (8.5-10.1); Creatinine Clr Calc Pharmacy 105.6 ml/min; Est GFR (African American) 104.1 ml/min; Est GFR (Non-African American) 89.8 ml/min; Potassium 4.5 mmol/L (3.5-5.1)
[2021-01-30 07:10] LABS: Albumin Globulin Ratio 0.5 (0.9-2); Bilirubin,Total 0.8 mg/dl (0.2-1); Globulin 5.3 gm/dl (2.5-4.0); Total Protein 7.7 gm/dl (6.4-8.2)
--- NOTE | 2021-01-30 07:50 | Neurology Progress Note ---
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 He does not have any sensory deficits. His arms have mild weakness left greater than right side and decreased reflexes as well. He has no cranial nerve issues. There is significant low back pain without radicular symptoms. Today he is moving his legs better than he did yesterday. He has received 3 doses of IVIG so far and has also received IV Rocephin. His symptoms started shortly after a Pfizer Covid-19 booster vaccination and had progressed over time. He certainly does not seem to be progressing over the last 48 hours however. Lyme Western blot was positive for multiple bands and IgG and IgM. MRI of the lumbar, cervical, thoracic spines showed degenerative changes and some spondylosis and mild spinal stenosis only but no surgical lesions. lumbar puncture showed no cells and protein of 143. 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 I cannot exclude Central nervous system Lyme disease, and CSF Lyme PCR is pending. Recommendations: 1. continue IVIG 40 grams per day. This is day 3 and he has 2 more days. 2. physical and occupational therapy consult, increasing activity as able. 3. IV Rocephin until the CSF lyme result 4. EMG nerve conduction study as an outpatient, which will help with prognosis ( demyelination versus axonopathy). Ideally this should be 2-3 weeks after the onset of symptoms. Overall, I spent a total of 25 minutes with this case including review of records, direct evaluation the patient at bedside, and discussion the case with the patient at bedside and RN at bedside Admission and Anticipated Discharge Date Admission Date: January 26, 2021 Subjective patient has no complaint of pain or headache it is not dizzy. He believes he is moving his legs better today than he did yesterday. Laboratory studies revealed a white count of 13.8 with normal hemoglobin and hematocrit. Chest x-ray was unremarkable and Chem profile is unremarkable. He is afebrile. Blood pressure is 163/80. Results & Data ([facility]) Vital Signs (Past 12 Hours) Vital Signs Temp Pulse Resp BP Pulse Ox 01/30/21 07:22 36.3 C L 63 20 163/80 H 96 12/03/21 23:37 36.9 C 79 19 161/88 H 96 01/29/21 21:29 37.2 C 68 18 135/85 96 Exam (Neuro) Physical Exam: He is awake and alert with normal speech and mentation. Mood and affect seem normal appropriate. Thought processes are intact to conversation. Extraocular muscles are intact without nystagmus. There is no facial droop. Coordination and strength seems symmetrical in the arms and the legs strength seems a bit stronger as he can move his legs in the bed and lift up against gravity better than yesterday PG Care Time/CCT Total # of Minutes Spent Total Time Spent with Patient: Total time spent is greater than 50% in coordination of care (as documented) at patient's floor/unit and/or counseling patient: Coding Level of Care Code 66096 Subseq Hosp Care Lvl 2 Diagnoses Weakness R53.1 Lyme disease A69.20 Guillain-[place] syndrome G61.0 Time Spent (min) 25
[2021-01-30] MEDS: lisinopril 20 MG TAB PO SCH ×2 (08:41→20:31)
[2021-01-30] MEDS: METOPROLOL SUCC 25MG EXT REL TAB PO SCH (08:41)
[2021-01-30] MEDS: DOCUSATE SODIUM/SENNA 50/8.6MG TAB PO SCH (08:41)
[2021-01-30] MEDS: POLYETHYLENE (MIRALAX) 17 GM PACK PO SCH (08:42)
[2021-01-30] MEDS: VERAPAMIL HCL 180 MG TABCR PO SCH ×2 (08:42→20:32)
--- NOTE | 2021-01-30 09:08 | Hospitalist Progress Note ---
Date of Service January 30, 2021 Assessment & Plan (1) Weakness: Plan: Patient with a longstanding history of low back pain that has been progressively worse and subsequently leading to ambulatory dysfunction (had been walking/hiking 2 weeks ago) Presented to the ED yesterday given inability to walk. UA negative. CT scan showed large bulging disc at the level of L4-L5 --> however, MRI subsequently obtained showing no evidence of large disc herniation or central cord compromise of the central canal. Multilevel lumbosacral spondylosis without central canal compromise. Did have radiculopathy down the right lower extremity 01/25 -- Cont'd on dexamethasone 8mg IV daily. Had improvement of symptoms but with continued b/l LE weakness R>L but not yet up out of bed walking. PT/OT consults placed. 01/26--> progressive weakness in b/l LE not fitting imaging findings. Had Dr Altagracia awan, also not explaining symptoms. Checked Lyme (see below), but also consulted Neuro for AM CK wnl, LDH elevated, Aldolase pending 01/27 --> Neuro consult undertaken, concerns for possible Guillain [place] Syndrome. --> recent URI but also had Pfizer vaccine shortly before requiring hospitalization CT head without acute abn. --> s/p LP with elevated protein 143, glucose 74. No WBC or cells, leaning away from Lyme per discussion with Neuro --> continue Doxy BID for now (cont 3-4 weeks), await CSF MRI of lumbar, cervical, thoracic spines with degenerative changes and mild spinal stenosis but no surgical lesions Started IVIG 0.4 g/kg/day over 5 days. CSF studies pending as rec'd by Neuro 01/28-- > now with progression of weakness to UE. Thankfully no respiratory compromise at this time. Neurochecks Q4H. Will also have respiratory therapy obtain NIF Qshift to ensure stable from respiratory standpoint as well Continued therapy --> will alert to see if able to work with him several times daily. Also discussed rehab with daughter at bedside this evening moving forward as they were initially not on board with patient going to any kind of facility. Worried about not being able to visit him as well Continue Doxy BID (started evening 01/26) unless CSF + then would switch to Ceftriaxone and continue 28days IV, US guided IV would be req'd D/c Steroids as no role 01/29 -->Slight improvement, but thankfully no further decline, raising suspicion for more of Lyme picture given would expect 2 wks prior to improvement? Continue IVIG Western Blot SIGNIFICANTLY POSITIVE --> SWITCHED TO ROCEPHIN 01/29. Monitor CSF 01/30 IMPROVING movement to b/l LE and improved dextreity and sterile processing manager strength today Day 4 of 5 IVIG (some extravasation noted 01/29) Continue Ceftriaxone -- CSF Lyme still pending but if + tx [id number], US guided IV Per Neuro continue course for now -- believed clinical picture c/w Guillain- [place] Syndrome, likely autoimmune reaction from vaccine, as well as active Lyme infection. 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 never treated for such in past. no bulls-eye rash/lesions appreciated Doxy as above for now unless CSF +, then switch Ceftriaxone as above Given degree on WB, switched to Rocephin IV 01/29 and will monitor CSF results (4) Low back pain: Plan: pain control tx for above -- decrease pain reported 01/29 (5) Leg weakness: Plan: 2nd to above additional labs pending per neuro recs PT/OT tx as above (6) Ambulatory dysfunction: Plan: 2nd to above Continue PT/OT and will need INTENSIVE rehab at d/c (7) Leukocytosis: Plan: Likely steroid-induced. Patient was on Medrol Dosepak prior to presentation to the ED He is without fever +Lyme as above on initial screen -- WB as above, Was on doxy starting 01/26--> ceftriaxone 01/29 continue to monitor, no fevers. steroids d/c'd 01/28 (8) Hypertension: Plan: elevations 2nd to pain/steroids Continue verapamil, lisinopril, and metoprolol lasix to be ordered prn -- no further today Hydralazine prn BP currently 163/80 Plan: Switched to Ceftriaxone IV as above for WB --> monitor CSF Lyme as well as other studies per Neuro Neuro continuing to follow --> will need outpatient EMGs IVIG (day 4 of 5, to be completed Monday) Continue PT/OT -- rehab at d/c. CM following. --> I did complete appeal for insurance denial on the phone evening 01/27 as stay was denied--> Approved. Continue to monitor Admission and Anticipated Discharge Date Admission Date: January 26, 2021 Supervising Physician Co-Signing Physician Notes chart reviewed and case d/w L Fernandez PAC. agree w above Subjective Patient evaluated this afternoon. Improved leg strength but still weaker on the left but able to lift up in bed better today. Improved dexterity to hands and sterile processing manager strength and not dropping things today. No fever, chills, chest pain, abdominal pain, nausea or vomiting. Decreased back discomfort but managed with ordered medications. Passing lots of gas but no BM -- will order mag citrate and monitor response. Updated daughter marcelino on phone last night regarding plan. Updated son today this afternoon while in the hospital. Review of Systems Review of Systems: All systems reviewed & are unremarkable except as noted in HPI & below Physical Exam Physical Exam: General: WD/WN, sitting up in bed, NAD eyes anicteric , pupils equal and reactive, EOMI trachea midline without deviation resp: CTAB, diminished in bases, no w/c/r, no accessory muscle use,on room air 94% CV: RRR, no m/r/g, trace-1+ LE edema GI: +BS throughout, +distended, non-tender, no guarding or rigidity : no talamantes Psych: AOx3, occasional forgetfulness (improved but states chronic issue) Neuro/MSK: speech clear, answers questions appropriately, no facial droop, facial strength intact. no meningeal signs. not able to test gait as unable to stand. No pronator drift or tremor noted. UE sterile processing manager strength b/l today SLIGHTLY IMPROVED, R>L . 4/5 hip flexors/extensors but 3/5 distally. However, moving legs a lot better. Still with weakness R>L LE today however able to push against resistance and lift legs up in beg (change from days prior) sensation intact to light touch ABSENT DTR to biceps/triceps/Achilles and LE Results & Data Results & Data ([facility]) Vital Signs (Past 12 Hours) Vital Signs Temp Pulse Resp BP Pulse Ox 01/30/21 07:22 36.3 C L 63 20 163/80 H 96 01/29/21 23:37 36.9 C 79 19 161/88 H 96 01/29/21 21:29 37.2 C 68 18 135/85 96 Laboratory Results 01/30/21 01/30/21 01/29/21 Range/Units 05:55 05:55 10:22 WBC 13.86 H 14.52 H (4.8-10.8) K/uL RBC 4.86 4.62 L (4.7-6.1) M/uL Hgb 14.7 14.1 (14.0-18.0) g/dL Hct 44.3 41.6 L (42-52) % MCV 91.2 90.0 (80-100) fL MCH 30.2 30.5 (25-34) pg MCHC 33.2 33.9 (32-36) g/dL RDW Std Deviation 44.9 44.9 (36.4-46.3) fL RDW Coeff of Khushboo 13.6 13.7 (11.5-14.5) % Plt Count 303 336 (130-400) K/uL MPV 9.8 9.8 (7.4-10.4) fL Immature Gran % (Auto) 0.9 % Neut % (Auto) 71.6 % Lymph % (Auto) 15.5 % [place] % (Auto) 11.6 % Eos % (Auto) 0.3 % Baso % (Auto) 0.1 % Neut # (Auto) 9.93 H (1.4-6.5) K/uL Lymph # (Auto) 2.15 (1.2-3.4) K/uL [place] # (Auto) 1.61 H (0.11-0.59) K/uL Eos # (Auto) 0.04 (0-0.5) K/uL Baso # (Auto) 0.01 (0-0.2) K/uL Immature Gran # (Auto) 0.12 H (0.00-0.02) K/uL ESR (0-20) mm/hr Sodium 133 L (136-145) mmol/L Potassium 4.5 (3.5-5.1) mmol/L Chloride 102 (98-107) mmol/L Carbon Dioxide 24 (21-32) mmol/L Anion Gap 7.0 (3-11) BUN 24 H (7-18) mg/dl Creatinine 0.83 (0.6-1.4) mg/dl Est Cr Clr Drug Dosing 105.6 ml/min Est GFR ( Amer) 104.1 ml/min Est GFR (Non-Af Amer) 89.8 ml/min BUN/Creatinine Ratio 29.0 H (10-20) Glucose 99 (70-99) mg/dl Calcium 8.2 L (8.5-10.1) mg/dl Total Bilirubin 0.8 (0.2-1) mg/dl AST 17 (15-37) U/L ALT 34 (12-78) U/L Alkaline Phosphatase 60 (45-117) U/L C-Reactive Protein (0-0.29) mg/dl Total Protein 7.7 (6.4-8.2) gm/dl Albumin 2.4 L (3.4-5.0) gm/dl Globulin 5.3 H (2.5-4.0) gm/dl Albumin/Globulin Ratio 0.5 L (0.9-2) 01/29/21 01/29/21 Range/Units 10:22 10:22 WBC (4.8-10.8) K/uL RBC (4.7-6.1) M/uL Hgb (14.0-18.0) g/dL Hct (42-52) % MCV (80-100) fL MCH (25-34) pg MCHC (32-36) g/dL RDW Std Deviation (36.4-46.3) fL RDW Coeff of Khushboo (11.5-14.5) % Plt Count (130-400) K/uL MPV (7.4-10.4) fL Immature Gran % (Auto) % Neut % (Auto) % Lymph % (Auto) % [place] % (Auto) % Eos % (Auto) % Baso % (Auto) % Neut # (Auto) (1.4-6.5) K/uL Lymph # (Auto) (1.2-3.4) K/uL [place] # (Auto) (0.11-0.59) K/uL Eos # (Auto) (0-0.5) K/uL Baso # (Auto) (0-0.2) K/uL Immature Gran # (Auto) (0.00-0.02) K/uL ESR 36 H (0-20) mm/hr Sodium 132 L (136-145) mmol/L Potassium 4.3 (3.5-5.1) mmol/L Chloride 102 (98-107) mmol/L Carbon Dioxide 24 (21-32) mmol/L Anion Gap 6.0 (3-11) BUN 30 H (7-18) mg/dl Creatinine 0.98 (0.6-1.4) mg/dl Est Cr Clr Drug Dosing 89.4 ml/min Est GFR ( Amer) 90.8 ml/min Est GFR (Non-Af Amer) 78.4 ml/min BUN/Creatinine Ratio 30.8 H (10-20) Glucose 149 H (70-99) mg/dl Calcium 8.4 L (8.5-10.1) mg/dl Total Bilirubin 0.7 (0.2-1) mg/dl AST 15 (15-37) U/L ALT 32 (12-78) U/L Alkaline Phosphatase 59 (45-117) U/L C-Reactive Protein 1.25 H (0-0.29) mg/dl Total Protein 7.3 (6.4-8.2) gm/dl Albumin 2.5 L (3.4-5.0) gm/dl Globulin 4.8 H (2.5-4.0) gm/dl Albumin/Globulin Ratio 0.5 L (0.9-2) PG Care Time/CCT Total # of Minutes Spent Total Time Spent with Patient: Total time spent is greater than 50% in coordination of care (as documented) at patient's floor/unit and/or counseling patient: Coding Level of Care Code 71552 Subseq Hosp Care Lvl 3 Diagnoses Weakness R53.1 Guillain-Odin syndrome G61.0 Lyme disease A69.20 Low back pain M54.50 Leg weakness R29.898 Laterality: unspecified laterality Ambulatory dysfunction R26.2 Leukocytosis D72.829 Hypertension I10 (1) Leg weakness Laterality: unspecified laterality Qualified Code(s): R29.898 - Other symptoms and signs involving the musculoskeletal system
[2021-01-30] MEDS: cefTRIAXone SODIUM 2,000 MG in DEXTROSE 5% 50 ML IV SCH (09:11)
[2021-01-30] MEDS ORDERED: MAGNESIUM CITRATE 296 ML/BTL PO STA (13:15)
[2021-01-30] MEDS: IMMUN GLOBG(IGG)/MALT/IGA OV50 100 ML IV SCH ×3 (18:02→22:41)
[2021-01-30] MEDS: ENOXAPARIN INJ 40 MG/0.4 ML SYR SQ SCH (20:31)
[2021-01-30 22:21] LABS: CMV DNA Qnt Real Time PCR Not Detected; CMV DNA Quant PCR Not Detected log IU/mL; HSV Type 1 DNA Not Detected (Not Detected); HSV Type 1&2 DNA Source CSF; HSV Type 2 DNA Not Detected (Not Detected)
[2021-01-31] MEDS: IMMUN GLOBG(IGG)/MALT/IGA OV50 100 ML IV SCH ×5 (01:08→23:30)
[2021-01-31 07:03] LABS: Hemoglobin 14.5 g/dL (14.0-18.0); Mean Corpuscular Hgb Conc 33.7 g/dL (32-36); Mean Corpuscular Volume 92.1 fL (80-100); Mean Platelet Volume 9.9 fL (7.4-10.4); Platelet Count 298 K/uL (130-400); RDW Coefficient of Variation 13.9 % (11.5-14.5); RDW Standard Deviation 46.3 fL (36.4-46.3); Red Blood Count 4.67 M/uL (4.7-6.1); White Blood Count 12.72 K/uL (4.8-10.8)
[2021-01-31 07:32] LABS: BUN Creatinine Ratio 27.3 (10-20); Calcium 8.3 mg/dl (8.5-10.1); Creatinine Clr Calc Pharmacy 99.6 ml/min; Est GFR (African American) 101.6 ml/min; Est GFR (Non-African American) 87.6 ml/min; Potassium 4.7 mmol/L (3.5-5.1)
[2021-01-31] MEDS: cefTRIAXone SODIUM 2,000 MG in DEXTROSE 5% 50 ML IV SCH (07:46)
--- NOTE | 2021-01-31 08:07 | Hospitalist Progress Note ---
Date of Service January 31, 2021 Assessment & Plan (1) Weakness: Plan: SUSPECTED 2nd to possible Guillain-[place], Lyme, B12 deficiency on top of longstanding degenerative disc disease/ambulatory dysfunction Patient with a longstanding history of low back pain that has been progressively worse and subsequently leading to ambulatory dysfunction (had been walking/hiking 2 weeks ago) Presented to the ED yesterday given inability to walk. UA negative. CT scan showed large bulging disc at the level of L4-L5 --> however, MRI subsequently obtained showing no evidence of large disc herniation or central cord compromise of the central canal. Multilevel lumbosacral spondylosis without central canal compromise. Did have radiculopathy down the right lower extremity 01/25 -- Cont'd on dexamethasone 8mg IV daily. Had improvement of symptoms but with continued b/l LE weakness R>L but not yet up out of bed walking. PT/OT consults placed. 01/26-> progressive weakness in b/l LE not fitting imaging findings. Had Dr Frias re-eval, also not explaining symptoms. Checked Lyme (see below), but also consulted Neuro for AM CK wnl, LDH elevated, Aldolase elevated 01/27 --> Neuro consult undertaken, concerns for possible Guillain [place] Syndrome. --> recent URI but also had Pfizer vaccine shortly before requiring hospitalization. CT head negative. S/p LP with protein 143/glucose 74, no WBC or cells, leaning away from Lyme per discussion with Neuro. Continued Doxy at that time while awaiting WB/CSF and started IVIG x 5 days 01/28 --> progressive UE weakness, no resp compromise. Continue IVIG/doxy/PT/OT MRI lumbar, cervical, thoracic spines with degenerative changes and mild spinal stenosis but no surgical lesions 01/29 --> continue NIF Qshift to assess resp reserve -- continued to do well. Continued IVIG WB SIGNIFICANTLY POSITIVE --> switched to Ceftriaxone, monitor CSF 01/30--> Improvements made to b/l LE and dexterity, day 45 IVIG (had some extravasation --see comm notes). Continue Ceftriaxone Per Neuro continue course for now -- believed clinical picture c/w Guillain- [place] Syndrome, likely autoimmune reaction from vaccine, as well as active Lyme infection. 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 Discussed etoh -- reported couple beers/week but admitting RN prsjuan ramon and stated he admitted to couple/day on admission * --> B12/folate checked * --> B12 low at 177 and placed on IM daily 1000mcg. Given folic acid and thiamine replacement as well * day 5 IVIG, Ceftriaxone continued --> CSF without results for Lyme PCR yet but wouldn't be surprised if also positive. If positive patient will need US guided IV and 28days rocephin. * Will also need outpatient EMG w/ Neuro to determine demyelinating vs axonal and determine prognosis for patient. CONTINUE intensive PT/OT and recs for rehab at d/c. Discussed with patient and family multiple times. Daughter and son on board but inquiring about visitations. Discussed status changes daily. (2) Guillain-[place] syndrome: Plan: suspected as above however WB significantly positive and tx with Ceftriaxone as above. Also w/ B12 deficiency (3) Lyme disease: Plan: + on initial testing, WB pending. never treated for such in past. no bulls-eye rash/lesions appreciated Doxy as above for now unless CSF +, then switch Ceftriaxone as above Given degree on WB, switched to Rocephin IV 01/29 and will monitor CSF results (4) B12 deficiency: Plan: contributing to weakness/neuropathy and confusion hx etoh use as reported today -- several times weekly. no evidence of seizure activity IM daily while inpatient, continue supplementation at d/c Also placed on thiamine (B1 to am labs if possible for blood already drawn), and folic acid (5) Low back pain: Plan: pain control tx for above -- decrease pain reported and utilizing less pain medication (6) Leg weakness: Plan: 2nd to above additional labs pending per neuro recs PT/OT tx as above NOW W/ B12 DEFICIENCY WELL ABOVE, REPLACEMENT ORDERED (7) Ambulatory dysfunction: Plan: 2nd to above Continue PT/OT and will need INTENSIVE rehab at d/c (8) Leukocytosis: Plan: Likely steroid-induced. Patient was on Medrol Dosepak prior to presentation to the ED He is without fever +Lyme as above on initial screen -- WB as above, Was on doxy starting 01/26--> ceftriaxone 01/29 continue to monitor, no fevers. steroids d/c'd 01/28. wbc TRENDING DOWN (9) Hypertension: Plan: elevations 2nd to pain/steroids Continue verapamil, lisinopril, and metoprolol lasix to be ordered prn -- no further at this time Hydralazine prn BP currently 167/82 Plan: Switched to Ceftriaxone IV as above for WB --> monitor CSF Lyme as well as other studies per Neuro IVIG (day 5 of 5 today) B12 deficiency --> replacement as above Continue to monitor progress and strongly encourage rehab at d/c per PT/OT and Neuro. Outpt EMGs with Neuro for prognosis. Neuro back on service tomorrow Admission and Anticipated Discharge Date Admission Date: January 26, 2021 Supervising Physician Co-Signing Physician Notes chart reviewed and case d/w L Fernandez PAC. agree w above Subjective patient evaluated this morning had eventful night and was reported to be confused this morning -- asked patient and he does not remember being confused. 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 Continued UE weakness, but LE weakness slightly worse today. Has not yet been up out of bed. No fever, chills, chest pain, shortness of breath, abdominal pain, nausea or vomiting. Had a LARRGGGE bowel movement overnight, reportedly filling "half a bucket" per nursing. He states he does feel much better with that regard after the mag citrate. Currently utilizing snuff on tray -- asked about alcohol use. He endorses he does have a couple of beers couple times a week --> per nurse Elbert who had on admission he stated the patient had reported couple of beers daily. Will place on thiamine/folate empirically and check B12/folate. Add B1 to labs if able. Review of Systems Review of Systems: All systems reviewed & are unremarkable except as noted in HPI & below Physical Exam Physical Exam: General: WD/WN, sitting up in bed, sleepy today and stated d idn't get good rest, NAD eyes anicteric , pupils equal and reactive, EOMI trachea midline without deviation resp: CTAB, diminished in bases, no w/c/r, no accessory muscle use,on room air 99% CV: RRR, no m/r/g, trace-1+ LE edema GI: +BS throughout,soft, non-tender, no guarding or rigidity : no talamantes Psych: AOx3, occasional forgetfulness (improved but states chronic issue -- stated 2020, in [place], January and wondering if he will be stuck here forever) Neuro/MSK: speech clear, answers questions appropriately, no facial droop, facial strength intact. no meningeal signs. not able to test gait as unable to stand. No pronator drift or tremor noted. 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 4/5 hip flexors/extensors but 3/5 distally. Worsening LE weakness and not able to lift legs off of bed today, active strength with dorsiflexion/plantar flexion but unable to assess gait as still with profound weakness and inability to stand sensation intact to light touch, slightly decreased ABSENT DTR to biceps/triceps/Achilles and LE Results & Data Results & [facility] ([facility]) Vital Signs (Past 12 Hours) Vital Signs Temp Pulse Pulse Resp BP Pulse Ox 01/31/21 06:36 36.4 C L 66 16 167/82 H 99 01/30/21 22:31 36.7 C 67 18 127/79 97 Laboratory Results 01/31/21 01/31/21 01/31/21 Range/Units 11:36 06:33 06:33 WBC 12.72 H (4.8-10.8) K/uL RBC 4.67 L (4.7-6.1) M/uL Hgb 14.5 (14.0-18.0) g/dL Hct 43.0 (42-52) % MCV 92.1 (80-100) fL MCH 31.0 (25-34) pg MCHC 33.7 (32-36) g/dL RDW Std Deviation 46.3 (36.4-46.3) fL RDW Coeff of Khushboo 13.9 (11.5-14.5) % Plt Count 298 (130-400) K/uL MPV 9.9 (7.4-10.4) fL Sodium 133 L (136-145) mmol/L Potassium 4.7 (3.5-5.1) mmol/L Chloride 101 (98-107) mmol/L Carbon Dioxide 25 (21-32) mmol/L Anion Gap 7.0 (3-11) BUN 24 H (7-18) mg/dl Creatinine 0.88 (0.6-1.4) mg/dl Est Cr Clr Drug Dosing 99.6 ml/min Est GFR ( Amer) 101.6 ml/min Est GFR (Non-Af Amer) 87.6 ml/min BUN/Creatinine Ratio 27.3 H (10-20) Glucose 98 (70-99) mg/dl Calcium 8.3 L (8.5-10.1) mg/dl Vitamin B12 177 L (193-986) pg/ml Folate > 20.00 (>5.38) ng/ml CMV Specimen Source CMV Qnt PCR IU/mL IU/mL CMV Qnt PCR log IU/mL log IU/mL Herpes Virus Source HSV I DNA PCR (Not Detected) HSV II DNA PCR (Not Detected) 01/27/21 Range/Units 14:44 WBC (4.8-10.8) K/uL RBC (4.7-6.1) M/uL Hgb (14.0-18.0) g/dL Hct (42-52) % MCV (80-100) fL MCH (25-34) pg MCHC (32-36) g/dL RDW Std Deviation (36.4-46.3) fL RDW Coeff of Khushboo (11.5-14.5) % Plt Count (130-400) K/uL MPV (7.4-10.4) fL Sodium (136-145) mmol/L Potassium (3.5-5.1) mmol/L Chloride (98-107) mmol/L Carbon Dioxide (21-32) mmol/L Anion Gap (3-11) BUN (7-18) mg/dl Creatinine (0.6-1.4) mg/dl Est Cr Clr Drug Dosing ml/min Est GFR ( Amer) ml/min Est GFR (Non-Af Amer) ml/min BUN/Creatinine Ratio (10-20) Glucose (70-99) mg/dl Calcium (8.5-10.1) mg/dl Vitamin B12 (193-986) pg/ml Folate (>5.38) ng/ml CMV Specimen Source CSF CMV Qnt PCR IU/mL Not Detected IU/mL CMV Qnt PCR log IU/mL Not Detected log IU/mL Herpes Virus Source CSF HSV I DNA PCR Not Detected (Not Detected) HSV II DNA PCR Not Detected (Not Detected) PG Care Time/CCT Total # of Minutes Spent Total Time Spent with Patient: Total time spent is greater than 50% in coordination of care (as documented) at patient's floor/unit and/or counseling patient: Coding Level of Care Code 92429 Subseq Hosp Care Lvl 3 Diagnoses Weakness R53.1 Guillain-[place] syndrome G61.0 Lyme disease A69.20 Low back pain M54.50 Leg weakness R29.898 Laterality: unspecified laterality Ambulatory dysfunction R26.2 Leukocytosis D72.829 Hypertension I10 B12 deficiency E53.8 (1) Leg weakness Laterality: unspecified laterality Qualified Code(s): R29.898 - Other symptoms and signs involving the musculoskeletal system
[2021-01-31] MEDS: lisinopril 20 MG TAB PO SCH ×2 (08:46→22:42)
[2021-01-31] MEDS: DOCUSATE SODIUM/SENNA 50/8.6MG TAB PO SCH (08:46)
[2021-01-31] MEDS: VERAPAMIL HCL 180 MG TABCR PO SCH ×2 (08:47→22:42)
[2021-01-31] MEDS: POLYETHYLENE (MIRALAX) 17 GM PACK PO SCH (08:47)
[2021-01-31] MEDS: METOPROLOL SUCC 25MG EXT REL TAB PO SCH (08:47)
[2021-01-31] MEDS ORDERED: predniSONE 10 MG TABLET PO SCH (09:00)
[2021-01-31] MEDS ORDERED: THIAMINE HCL 100 MG in SYRINGE 9 ML IV ONE (10:15)
[2021-01-31] MEDS ORDERED: FOLIC ACID 1 MG in SYRINGE 9.8 ML IV ONE (10:45)
[2021-01-31 12:53] LABS: Folate (Folic Acid) > 20.00 ng/ml (>5.38); Vitamin B12 177 pg/ml (193-986)
[2021-01-31] MEDS ORDERED: CYANOCOBALAMIN 30 MCG in SYRINGE 0.97 ML IM SCH (14:00)
[2021-01-31] MEDS ORDERED: LORazepam 0.5 MG/1 ML VIAL IV PRN (14:07)
[2021-01-31] MEDS ORDERED: CYANOCOBALAMIN 1000 MCG/ML VIAL IM ONE (14:15)
[2021-01-31] MEDS: HYDROCODONE/ACETAMOPHEN 5/325MG TAB PO PRN ×2 (15:51→23:52)
[2021-01-31] MEDS: ENOXAPARIN INJ 40 MG/0.4 ML SYR SQ SCH (22:40)
[2021-02-01] MEDS: MoRPHine SULFATE 4 MG/ML 1 ML CARP\\VIAL IV PRN (05:11)
[2021-02-01 07:02] LABS: Hematocrit (blood only) 40.2 % (42-52); Hemoglobin 13.7 g/dL (14.0-18.0); Mean Corpuscular Hemoglobin 31.3 pg (25-34); Mean Corpuscular Hgb Conc 34.1 g/dL (32-36); Mean Corpuscular Volume 91.8 fL (80-100); Mean Platelet Volume 9.8 fL (7.4-10.4); Platelet Count 265 K/uL (130-400); RDW Coefficient of Variation 13.7 % (11.5-14.5); RDW Standard Deviation 46.3 fL (36.4-46.3); Red Blood Count 4.38 M/uL (4.7-6.1); White Blood Count 10.45 K/uL (4.8-10.8)
[2021-02-01 07:26] LABS: BUN Creatinine Ratio 25.2 (10-20); Calcium 8.2 mg/dl (8.5-10.1); Creatinine Clr Calc Pharmacy 98.5 ml/min; Est GFR (African American) 101.1 ml/min; Est GFR (Non-African American) 87.2 ml/min; Potassium 4.5 mmol/L (3.5-5.1)
[2021-02-01] MEDS: cefTRIAXone SODIUM 2,000 MG in DEXTROSE 5% 50 ML IV SCH (07:33)
[2021-02-01] MEDS: lisinopril 20 MG TAB PO SCH ×2 (07:34→21:32)
[2021-02-01] MEDS: POLYETHYLENE (MIRALAX) 17 GM PACK PO SCH (07:34)
[2021-02-01] MEDS: VERAPAMIL HCL 180 MG TABCR PO SCH ×2 (07:35→21:31)
[2021-02-01] MEDS ORDERED: CYANOCOBALAMIN 500 MCG TABLET (VITAMIN B-12) PO SCH (09:00)
[2021-02-01] MEDS: DOCUSATE SODIUM/SENNA 50/8.6MG TAB PO SCH (09:20)
[2021-02-01] MEDS: THIAMINE HCL 100 MG TAB PO SCH (09:20)
[2021-02-01] MEDS: METOPROLOL SUCC 25MG EXT REL TAB PO SCH (09:20)
[2021-02-01] MEDS: FOLIC ACID 1 MG TAB PO SCH (09:20)
[2021-02-01] MEDS: CYANOCOBALAMIN 1000 MCG/ML VIAL IM SCH (10:01)
--- NOTE | 2021-02-01 13:55 | Hospitalist Progress Note ---
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 This most likely occurred after Covid vaccination. Continue physical therapy. He will need inpatient rehabilitation after discharge from acute care. Appreciate neurology consultation and cris mmendations. He is receiving IVIG therapy. There is some concern for associated Lyme disease has Western blot is positive. He is also on Rocephin therapy. (2) Guillain-[place] syndrome: Plan: Appreciate neurology consultation and recommendations. He has received IVIG therapy. Continue therapies. Rehab placement at discharge. (3) Lyme disease: Plan: Could possibly be a con current illness. Western blot is positive. He is now on Rocephin therapy. (4) B12 deficiency: Plan: May be contributing to weakness/neuropathy Replacement therapy ordered (5) Low back pain: Plan: pain control measures (6) Leg weakness: Plan: 2nd to Guillain-Evans syndrome. Continue PT and OT. tx as above (7) Ambulatory dysfunction: Plan: 2nd to above Continue PT/OT and will need rehab at d/c (8) Leukocytosis: Plan: Likely steroid-induced. Patient was on Medrol Dosepak prior to presentation to the ED He is without fever +Lyme as above on initial screen -- WB as above, Was on doxy starting 01/26--> ceftriaxone 01/29 continue to monitor, no fevers. steroids d/c'd 01/28. wbc TRENDING DOWN (9) Hypertension: Plan: Continue verapamil, lisinopril, and metoprolol lasix to be ordered prn -- no further at this time Hydralazine prn Plan: Discharge to rehab when final arrangements made. He is medically stable. Admission and Anticipated Discharge Date Admission Date: January 26, 2021 Subjective Alert and oriented. He is medically stable. We need to begin placement arrangements at a rehab facility Review of Systems Review of Systems: Constitutional-no fever or chills ENT-no blurred vision, no double vision, no epistaxis, no sore throat Respiratory-no cough, no wheezing, no shortness of breath Cardiac-no palpitations, no chest pain, no syncope GI-no nausea, vomiting, diarrhea, melena, hematochezia -no urinary retention, no urinary incontinence, no dysuria, no hematuria Musculoskeletal-no joint pain, no muscle tenderness Skin-no bruising, no rashes, no pruritus Neuro-bilateral leg weakness preventing ambulation Psych-no depression, no anxiety Physical Exam Physical Exam: General-alert and oriented x3, no fevers, no chills HEENT-head atraumatic and normocephalic, TMs intact bilaterally, pupils equal and reactive to light, extraocular muscles intact Neck-no lymphadenopathy or thyromegaly, trachea midline Chest-clear to auscultation percussion. No rales wheezing or rhonchi Cardiac-regular rate and rhythm, normal S1 and S2, no murmurs Abdomen-normal bowel sounds, nontender, no hepatosplenomegaly Extremities-no cyanosis, clubbing, or edema Neuro-cranial nerves II through XII intact, bilateral lower extremity weakness preventing ambulation. Psych-normal affect, normal mood Results & Data Results & Data ([facility]) Vital Signs (Past 12 Hours) Vital Signs Temp Pulse Resp BP Pulse Ox 02/01/21 07:24 36.4 C L 60 16 185/89 H 96 Laboratory Results 02/01/21 06:23 02/01/21 06:23 PG Care Time/CCT Total # of Minutes Spent Total Time Spent with Patient: Total time spent is greater than 50% in coordination of care (as documented) at patient's floor/unit and/or counseling patient: Coding Level of Care Code 96102 Subseq Hosp Care Lvl 3 Diagnoses Weakness R53.1 Guillain-[place] syndrome G61.0 Lyme disease A69.20 B12 deficiency E53.8 Low back pain M54.50 Leg weakness R29.898 Laterality: unspecified laterality Ambulatory dysfunction R26.2 Leukocytosis D72.829 Hypertension I10 (1) Leg weakness Laterality: unspecified laterality Qualified Code(s): R29.898 - Other sy mptoms and signs involving the musculoskeletal system
[2021-02-01] MEDS: HYDROCODONE/ACETAMOPHEN 5/325MG TAB PO PRN (17:00)
[2021-02-01] MEDS: ENOXAPARIN INJ 40 MG/0.4 ML SYR SQ SCH (21:31)
[2021-02-02] MEDS: HYDROCODONE/ACETAMOPHEN 5/325MG TAB PO PRN ×2 (02:04→18:16)
[2021-02-02 06:43] LABS: Basophils # (auto) 0.01 K/uL (0-0.2); Basophils % (auto) 0.1 %; Eosinophils # (auto) 0.05 K/uL (0-0.5); Eosinophils % (auto) 0.5 %; Hematocrit (blood only) 41.8 % (42-52); Immature Granulocytes # (auto) 0.08 K/uL (0.00-0.02); Immature Granulocytes % (auto) 0.7 %; Lymphocytes # (auto) 2.05 K/uL (1.2-3.4); Lymphocytes % (auto) 18.7 %; Mean Corpuscular Hemoglobin 30.9 pg (25-34); Mean Corpuscular Hgb Conc 33.5 g/dL (32-36); Mean Corpuscular Volume 92.3 fL (80-100); Mean Platelet Volume 9.6 fL (7.4-10.4); Monocytes % (auto) 14.6 %; Neutrophils # (auto) 7.15 K/uL (1.4-6.5); Neutrophils % (auto) 65.4 %; Platelet Count 250 K/uL (130-400); RDW Coefficient of Variation 13.9 % (11.5-14.5); RDW Standard Deviation 46.2 fL (36.4-46.3); Red Blood Count 4.53 M/uL (4.7-6.1); White Blood Count 10.94 K/uL (4.8-10.8)
[2021-02-02 07:15] LABS: BUN Creatinine Ratio 28.1 (10-20); Calcium 8.4 mg/dl (8.5-10.1); Creatinine Clr Calc Pharmacy 100.7 ml/min; Est GFR (African American) 102.1 ml/min; Est GFR (Non-African American) 88.1 ml/min; Potassium 4.5 mmol/L (3.5-5.1)
[2021-02-02 07:26] VITALS: O2SAT 96
[2021-02-02] MEDS: POLYETHYLENE (MIRALAX) 17 GM PACK PO SCH (09:08)
[2021-02-02] MEDS: DOCUSATE SODIUM/SENNA 50/8.6MG TAB PO SCH (09:08)
[2021-02-02] MEDS: METOPROLOL SUCC 25MG EXT REL TAB PO SCH (09:10)
[2021-02-02] MEDS: FOLIC ACID 1 MG TAB PO SCH (09:10)
[2021-02-02] MEDS: THIAMINE HCL 100 MG TAB PO SCH (09:11)
[2021-02-02] MEDS: lisinopril 20 MG TAB PO SCH ×2 (09:11→21:11)
[2021-02-02] MEDS: VERAPAMIL HCL 180 MG TABCR PO SCH ×2 (09:11→21:12)
[2021-02-02] MEDS: cefTRIAXone SODIUM 2,000 MG in DEXTROSE 5% 50 ML IV SCH (09:12)
[2021-02-02] MEDS: CYANOCOBALAMIN 1000 MCG/ML VIAL IM SCH (09:16)
--- NOTE | 2021-02-02 14:09 | Hospitalist Progress Note ---
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 This most likely occurred after Covid vaccination. Continue physical therapy. He will need inpatient rehabilitation after discharge from acute care. Appreciate neurology consultation and recommendations. He is receiving IVIG therapy. There is some concern for associated Lyme disease has Western blot is positive. He is also on Rocephin therapy. (2) Guillain-[place] syndrome: Plan: Appreciate neurology consultation and recommendations. He has received IVIG therapy. Continue therapies. Rehab placement at discharge. (3) Lyme disease: Plan: Could possibly be a concurrent illness. Western blot is positive. He is now on Rocephin therapy. (4) B12 deficiency: Plan: May be contributing to weakness/neuropathy Replacement therapy ordered (5) Low back pain: Plan: pain control measures (6) Leg weakness: Plan: 2nd to Guillain-Evans syndrome. Continue PT and OT. tx as above (7) Ambulatory dysfunction: Plan: 2nd to above Continue PT/OT and will need rehab at d/c (8) Leukocytosis: Plan: Likely steroid-induced. Patient was on Medrol Dosepak prior to presentation to the ED He is without fever +Lyme as above on initial screen -- WB as above, Was on doxy starting 01/26--> switched to ceftriaxone 01/29 (9) Hypertension: Plan: Continue verapamil, lisinopril, and metoprolol lasix to be ordered prn -- no further at this time Hydralazine prn Plan: Discharge to rehab when final arrangements made. He is medically stable. Admission and Anticipated Discharge Date Admission Date: January 26, 2021 Subjective Alert and oriented. No acute distress. No new findings. He is medically stable for discharge to [facility] for rehab when final arrangements are made. Review of Systems Review of Systems: Constitutional-no fever or chills ENT-no blurred vision, no double vision, no epistaxis, no sore throat Respiratory-no cough, no wheezing, no shortness of breath Cardiac-no palpitations, no chest pain, no syncope GI-no nausea, vomiting, diarrhea, melena, hematochezia -no urinary retention, no urinary incontinence, no dysuria, no hematuria Musculoskeletal-bilateral lower extremity weakness. No muscle tenderness Skin-no bruising, no rashes, no pruritus Neuro-no isolated weakness, no paresthesia, no weakness Psych-no depression, no anxiety Physical Exam Physical Exam: General-alert and oriented x3, no fevers, no chills HEENT-head atraumatic and normocephalic, TMs intact bilaterally, pupils equal and reactive to light, extraocular muscles intact Neck-no lymphadenopathy or thyromegaly, trachea midline Chest-clear to auscultation percussion. No rales wheezing or rhonchi Cardiac-regular rate and rhythm, normal S1 and S2, no murmurs Abdomen-normal bowel sounds, nontender, no hepatosplenomegaly Extremities-no cyanosis, clubbing, or edema. Bilateral symmetrical lower extremity weakness Neuro-cranial nerves II through XII intact, bilateral symmetrical lower extremity weakness Psych-normal affect, normal mood Results & Data Results & Data ([facility]) Vital Signs (Past 12 Hours) Vital Signs Temp Pulse Resp BP Pulse Ox 02/02/21 09:08 72 02/02/21 07:22 36.8 C 57 L 16 132/80 96 PG Care Time/CCT Total # of Minutes Spent Total Time Spent with Patient: Total time spent is greater than 50% in coordination of care (as documented) at patient's floor/unit and/or counseling patient: Coding Level of Care Code 68322 Subseq Hosp Care Lvl 3 Diagnoses Weakness R53.1 Guillain-[place] syndrome G61.0 Lyme disease A69.20 B12 deficiency E53.8 Low back pain M54.50 Leg weakness R29.898 Laterality: unspecified laterality Ambulatory dysfunction R26.2 Leukocytosis D72.829 Hypertension I10 (1) Leg weakness Laterality: unspecified laterality Qualified Code(s): R29.898 - Other symptoms and signs involving the musculoskeletal system
--- NOTE | 2021-02-02 14:12 | Discharge Summary ---
Date of Service February 02, 2021 Admission HPI Per Admitting Provider This patient is a 70-year-old male with a history of HTN, smoking, and chronic lower back pain, who presents to the ER with over 1 week of progressively worsening lower back pain causing inability to ambulate. He was turkey hunting a couple of weeks ago and feels like he overdid it at that point. The back pain started 10 days ago and has progressively worsened. He was seen at [facility] ER and placed on a steroid burst as well as hydrocodone without improvement. He denies any bowel or bladder symptoms, no fevers or recent trauma. He did have 2 falls in the last day as per his son at the bedside and the patient reports that at times when he stands up he feels like his knees are just going to buckle out from underneath him. He also reports that he has developed numbness in both his feet and great toes in the last 24 hours. In the ER, his blood pressure was elevated as he had not yet taken any of his blood pressure medicines for the day. He had a leukocytosis of 20 K which is most likely secondary to corticosteroid use. He had a CT of the abdomen/pelvis and lumbar spine which showed a large posterior disc bulge eccentric to the right at L4-L5 unchanged from CT 2017, moderate constipation, and chronic findings of bladder outlet obstruction, renal cysts, and bilateral fat- containing adrenal adenomas. In the ER, he was given 2 doses of IV morphine and a dose of IV Zofran but was still unable to get up and ambulate. He will be brought into the hospital in observation for pain control and further evaluation with MRI of the lumbar spine. Principal Diagnosis Guillain-Evans syndrome post Covid vaccination Discharge Exam General-alert and oriented x3, no fevers, no chills HEENT-head atraumatic and normocephalic, TMs intact bilaterally, pupils equal and reactive to light, extraocular muscles intact Neck-no lymphadenopathy or thyromegaly, trachea midline Chest-clear to auscultation percussion. No rales wheezing or rhonchi Cardiac-regular rate and rhythm, normal S1 and S2, no murmurs Abdomen-normal bowel sounds, nontender, no hepatosplenomegaly Extremities-no cyanosis, clubbing, or edema Neuro-cranial nerves II through XII intact, bilateral lower extremity weakness Psych-normal affect, normal mood Discharge Data Allergies Allergy/AdvReac Type Severity Reaction Status Date / Time No Known Allergies Allergy Unverified 01/23/21 08:31 Consultations 01/23/21 10:55 ED Decision to Admit Stat 01/23/21 12:12 Consult Orthopedic Surgery Routine 01/26/21 14:32 Consult Neurology Routine Ordered Studies 01/23/21 06:59 CT abd pelvis wo con Stat CT lumbar spine wo con Stat 01/23/21 10:55 MR lumbar spine wo con Stat 01/27/21 10:45 MR cervical spine wo/w con Urgent 01/27/21 10:51 MR thoracic spine wo/w con Urgent 01/27/21 11:00 CT head/brain wo con Stat Hospital Course (1) Weakness: 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 This most likely occurred after Covid vaccination. Continue physical therapy. He will need inpatient rehabilitation after discharge from acute care. Appreciate neurology consultation and recommendations. He is receiving IVIG therapy. There is some concern for associated Lyme disease has Western blot is positive. He is also on Rocephin therapy. (2) Guillain-[place] syndrome: Appreciate neurology consultation and recommendations. He has received IVIG therapy. Continue therapies. Rehab placement at discharge. (3) Lyme disease: Could possibly be a concurrent illness. Western blot is positive. He is now on Rocephin therapy. (4) B12 deficiency: May be contributing to weakness/neuropathy Replacement therapy ordered (5) Low back pain: pain control measures (6) Leg weakness: 2nd to Guillain-Evans syndrome. Continue PT and OT. tx as above (7) Ambulatory dysfunction: 2nd to above Continue PT/OT and will need rehab at d/c (8) Leukocytosis: Likely steroid-induced. Patient was on Medrol Dosepak prior to presentation to the ED He is without fever +Lyme as above on initial screen -- WB as above, Was on doxy starting 01/26--> switched to ceftriaxone 01/29 (9) Hypertension: Continue verapamil, lisinopril, and metoprolol lasix to be ordered prn -- no further at this time Hydralazine prn Discharge to rehab when final arrangements made. He is medically stable. Total Time Total Time Spent Total Time Spent (In Minutes): 35 Discharge Plan Discharge Items Patient Disposition: Transfer Inpatient Rehab Fac Reason For Visit: INTRACTABLE LOWER BACK PAIN, LEG WEAKNESS Discharge Diagnosis: Guillain-Evans syndrome with bilateral lower extremity weakness and ambulatory dysfunction which occurred after Covid vaccination Activity: Per Instructions section Non-emergency contact: Primary Care Provider Call non-emergency contact if: you have any medication questions Follow-up/Referrals: Lei De La Vega [Primary Care Provider] - Diet: Regular Addtl Attending Provider Instructions: Inpatient rehabilitation at [facility] Pending Studies at Discharge: No Stand-Alone Forms: My [facility] Skilled Items Patient informed of condition?: Yes DNR: No Discharge Level of Care: Acute rehab Communicable Disease: No Discharge Prognosis: Stable Lines: None Urinary Catheter: No Medications and DC Order Prescriptions: New enoxaparin 40 mg/0.4 mL Syringe 40 mg subcut HS Qty: 4 RF: 0 polyethylene glycol 3350 [Miralax] 17 gram Powder In Packet 17 g PO DAILY Qty: 14 RF: 0 cyanocobalamin (vitamin B-12) 500 mcg Tablet 500 mcg PO QAM Qty: 14 RF: 0 folic acid 1 mg Tablet 1 mg PO QAM Qty: 14 RF: 0 thiamine HCl (vitamin B1) [Vitamin B-1] 100 mg Tablet 100 mg PO QAM Qty: 14 RF: 0 Continued hydrocodone-acetaminophen 5-325 mg tablet 1 tab PO TID PRN (Reason: Pain) RF: 0 lisinopril 20 mg tablet 20 mg PO BID RF: 0 verapamil 180 mg tablet extended release 180 mg PO BID RF: 0 potassium chloride 10 mEq tablet extended release 10 meq PO DAILY PRN (Reason: Fluid Retention) RF: 0 furosemide 20 mg tablet 20 mg PO DAILY PRN (Reason: Fluid Retention) RF: 0 metoprolol succinate 25 mg tablet extended release 24 hr 25 mg PO DAILY RF: 0 methylprednisolone 4 mg tablets,dose pack 4 mg PO UD RF: 0 Discharge Orders: Discharge Order (Routine); Ordered 02/02/21 Ordered By: Thien Quintanilla Admission Data Admit Date/Time: 01/26/21 08:23 Attending Provider: Thien Quintanilla Admit Provider: Gerardo Mcdonald Primary Care Provider: Lei De La Vega Other Providers: Luis Frias ; Neil Bojorquez ; Agnes Morocho ; Presley Rashid ; [facility] Coding Level of Care Code D/C DAY MANAGEMENT >30 MINS Diagnoses Weakness R53.1 Guillain-[place] syndrome G61.0 Lyme disease A69.20 B12 deficiency E53.8 Low back pain M54.50 Leg weakness R29.898 Laterality: unspecified laterality Ambulatory dysfunction R26.2 Leukocytosis D72.829 Hypertension I10
[2021-02-02] MEDS: ENOXAPARIN INJ 40 MG/0.4 ML SYR SQ SCH (21:12)
[2021-02-02] MEDS ORDERED: ALBUT/IPRATROP 3MG/0.5MG NEB 3 ML VIAL NEB PRN (21:56)
[2021-02-03 07:24] LABS: Basophils # (auto) 0.01 K/uL (0-0.2); Basophils % (auto) 0.1 %; Eosinophils # (auto) 0.05 K/uL (0-0.5); Eosinophils % (auto) 0.5 %; Hematocrit (blood only) 40.6 % (42-52); Hemoglobin 13.9 g/dL (14.0-18.0); Immature Granulocytes # (auto) 0.09 K/uL (0.00-0.02); Immature Granulocytes % (auto) 0.9 %; Lymphocytes # (auto) 2.04 K/uL (1.2-3.4); Lymphocytes % (auto) 19.7 %; Mean Corpuscular Hemoglobin 31.1 pg (25-34); Mean Corpuscular Hgb Conc 34.2 g/dL (32-36); Mean Corpuscular Volume 90.8 fL (80-100); Mean Platelet Volume 9.5 fL (7.4-10.4); Monocytes # (auto) 1.41 K/uL (0.11-0.59); Monocytes % (auto) 13.6 %; Neutrophils # (auto) 6.77 K/uL (1.4-6.5); Neutrophils % (auto) 65.2 %; Platelet Count 236 K/uL (130-400); RDW Coefficient of Variation 13.7 % (11.5-14.5); RDW Standard Deviation 44.8 fL (36.4-46.3); Red Blood Count 4.47 M/uL (4.7-6.1); White Blood Count 10.37 K/uL (4.8-10.8)
[2021-02-03 07:47] VITALS: TEMP 98.2
[2021-02-03] MEDS: FOLIC ACID 1 MG TAB PO SCH (07:47)
[2021-02-03] MEDS: DOCUSATE SODIUM/SENNA 50/8.6MG TAB PO SCH (07:47)
[2021-02-03] MEDS: METOPROLOL SUCC 25MG EXT REL TAB PO SCH (07:48)
[2021-02-03] MEDS: VERAPAMIL HCL 180 MG TABCR PO SCH (07:48)
[2021-02-03] MEDS: lisinopril 20 MG TAB PO SCH (07:48)
[2021-02-03] MEDS: THIAMINE HCL 100 MG TAB PO SCH (07:49)
[2021-02-03] MEDS: POLYETHYLENE (MIRALAX) 17 GM PACK PO SCH (07:49)
[2021-02-03] MEDS: CYANOCOBALAMIN 1000 MCG/ML VIAL IM SCH (07:50)
[2021-02-03 08:01] LABS: BUN Creatinine Ratio 27.3 (10-20); Creatinine Clr Calc Pharmacy 103.1 ml/min; Est GFR (Non-African American) 88.9 ml/min; Potassium 4.1 mmol/L (3.5-5.1)
[2021-02-03] MEDS: cefTRIAXone SODIUM 2,000 MG in DEXTROSE 5% 50 ML IV SCH (10:40)
--- NOTE | 2021-02-03 13:30 | Discharge Summary ---
Date of Service February 03, 2021 Admission HPI Per Admitting Provider This patient is a 70-year-old male with a history of HTN, smoking, and chronic lower back pain, who presents to the ER with over 1 week of progressively worsening lower back pain causing inability to ambulate. He was turkey hunting a couple of weeks ago and feels like he overdid it at that point. The back pain started 10 days ago and has progressively worsened. He was seen at [facility] ER and placed on a steroid burst as well as hydrocodone without improvement. He denies any bowel or bladder symptoms, no fevers or recent trauma. He did have 2 falls in the last day as per his son at the bedside and the patient reports that at times when he stands up he feels like his knees are just going to buckle out from underneath him. He also reports that he has developed numbness in both his feet and great toes in the last 24 hours. In the ER, his blood pressure was elevated as he had not yet taken any of his blood pressure medicines for the day. He had a leukocytosis of 20 K which is most likely secondary to corticosteroid use. He had a CT of the abdomen/pelvis and lumbar spine which showed a large posterior disc bulge eccentric to the right at L4-L5 unchanged from CT 2017, moderate constipation, and chronic findings of bladder outlet obstruction, renal cysts, and bilateral fat- containing adrenal adenomas. In the ER, he was given 2 doses of IV morphine and a dose of IV Zofran but was still unable to get up and ambulate. He will be brought into the hospital in observation for pain control and further evaluation with MRI of the lumbar spine. Principal Diagnosis Gaullian barre Discharge Data Allergies Allergy/AdvReac Type Severity Reaction Status Date / Time No Known Allergies Allergy Unverified 01/23/21 08:31 Consultations 01/23/21 10:55 ED Decision to Admit Stat 01/23/21 12:12 Consult Orthopedic Surgery Routine 01/26/21 14:32 Consult Neurology Routine Ordered Studies 01/23/21 06:59 CT abd pelvis wo con Stat CT lumbar spine wo con Stat 01/23/21 10:55 MR lumbar spine wo con Stat 01/27/21 10:45 MR cervical spine wo/w con Urgent 01/27/21 10:51 MR thoracic spine wo/w con Urgent 01/27/21 11:00 CT head/brain wo con Stat Hospital Course (1) Weakness: 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 This most likely occurred after Covid vaccination. Continue physical therapy. He will need inpatient rehabilitation after discharge from acute care. Appreciate neurology consultation and recommendations. He is receiving IVIG therapy. There is some concern for associated Lyme disease has Western blot is positive. He is also on Rocephin therapy. (2) Guillain-[place] syndrome: Appreciate neurology consultation and recommendations. He has received IVIG therapy. Continue therapies. Rehab placement at discharge. (3) Lyme disease: Could possibly be a concurrent illness. Western blot is positive. He is now on Rocephin therapy. Per ID, would continue Rocephin till CSF results are known (4) B12 deficiency: May be contributing to weakness/neuropathy Replacement therapy ordered (5) Low back pain: pain control measures (6) Leg weakness: 2nd to Guillain-Evans syndrome. Continue PT and OT. tx as above (7) Ambulatory dysfunction: 2nd to above Continue PT/OT and will need rehab at d/c (8) Leukocytosis: Likely steroid-induced. Patient was on Medrol Dosepak prior to presentation to the ED He is without fever +Lyme as above on initial screen -- WB as above, Was on doxy starting 01/26--> switched to ceftriaxone 01/29 (9) Hypertension: Continue verapamil, lisinopril, and metoprolol lasix to be ordered prn -- no further at this time Hydralazine prn Discharge to rehab when final arrangements made. He is medically stable. Total Time Total Time Spent Total Time Spent (In Minutes): 35 min Discharge Plan Discharge Items Patient Disposition: Transfer Inpatient Rehab Fac Reason For Visit: INTRACTABLE LOWER BACK PAIN, LEG WEAKNESS Discharge Diagnosis: Guillain-Evans syndrome with bilateral lower extremity weakness and ambulatory dysfunction which occurred after Covid vaccination Activity: Per Instructions section Non-emergency contact: Primary Care Provider Call non-emergency contact if: you have any medication questions Follow-up/Referrals: Lei De La Vega [Primary Care Provider] - Diet: Regular Addtl Attending Provider Instructions: Inpatient rehabilitation at [facility] Pending Studies at Discharge: No Stand-Alone Forms: My [facility] Skilled Items Patient informed of condition?: Yes DNR: No Discharge Level of Care: Acute rehab Communicable Disease: No Discharge Prognosis: Stable Lines: None Urinary Catheter: No Medications and DC Order Prescriptions: New enoxaparin 40 mg/0.4 mL Syringe 40 mg subcut HS Qty: 4 RF: 0 polyethylene glycol 3350 [Miralax] 17 gram Powder In Packet 17 g PO DAILY Qty: 14 RF: 0 cyanocobalamin (vitamin B-12) 500 mcg Tablet 500 mcg PO QAM Qty: 14 RF: 0 folic acid 1 mg Tablet 1 mg PO QAM Qty: 14 RF: 0 thiamine HCl (vitamin B1) [Vitamin B-1] 100 mg Tablet 100 mg PO QAM Qty: 14 RF: 0 Continued hydrocodone-acetaminophen 5-325 mg tablet 1 tab PO TID PRN (Reason: Pain) RF: 0 lisinopril 20 mg tablet 20 mg PO BID RF: 0 verapamil 180 mg tablet extended release 180 mg PO BID RF: 0 potassium chloride 10 mEq tablet extended release 10 meq PO DAILY PRN (Reason: Fluid Retention) RF: 0 furosemide 20 mg tablet 20 mg PO DAILY PRN (Reason: Fluid Retention) RF: 0 metoprolol succinate 25 mg tablet extended release 24 hr 25 mg PO DAILY RF: 0 methylprednisolone 4 mg tablets,dose pack 4 mg PO UD RF: 0 Discharge Orders: Discharge Order (Routine); Ordered 02/02/21 Ordered By: Thien Quintanilla Admission Data Admit Date/Time: 01/26/21 08:23 Attending Provider: Vincent Lam Admit Provider: Gerardo Mcdonald Primary Care Provider: Lei De La Vega Other Providers: Luis Frias ; Neil Bojorquez ; Agnes Morocho ; Presley Rashid ; [facility] Coding Level of Care Code D/C DAY MANAGEMENT >30 MINS Diagnoses Weakness R53.1 Guillain-[place] syndrome G61.0 Lyme disease A69.20 B12 deficiency E53.8 Low back pain M54.50 Leg weakness R29.898 Laterality: unspecified laterality Ambulatory dysfunction R26.2 Leukocytosis D72.829 Hypertension I10
[2021-02-03 15:14] VITALS: BP 172/98; PULSE 73
== END 2021-02-03 16:03 | DRG 95 ==
LOC: ED 06:09 → 3E 06:09 → SUATTDRO 12:12 → 3E 13:18 → SUATTDRO 01-26 08:23